=== PATIENT | female | born 1935 | race Caucasian/White ===

== ENCOUNTER → 2016-09-23 | Outpatient (CLI) | payer OTHER ==
[~2016-09-23] MED LIST: ASPI81TA28 PO; ATOR-22 PO; ATV/1 PO; B COCAP3 PO; CALC-496 PO; DORZ1SOL OPB; FISHOIL PO; LYSI500C4 PO; MELO7.5T5 PO; MULT-663 PO; PRLSR20 PO; TRAM-10 PO; VTMD1000 PO
== END | disposition home or self-care (01) ==
LOC: C.LAB1850 13:35
PROVIDERS: ATTEND Internal Medicine Pulmonary Disease
DX: J01.90 Acute sinusitis, unspecified (principal); J20.9 Acute bronchitis, unspecified

== ENCOUNTER → 2017-05-16 | Outpatient (CLI) | payer OTHER ==
[~2017-05-16] MED LIST changes: -TRAM-10 PO
--- NOTE | 2017-05-16 15:37 | MAMMOGRAPHY REPORT ---
BILATERAL DIGITAL SCREENING MAMMOGRAM WITH CAD: 05/16/2017 CLINICAL HISTORY: Routine screening. Patient has no complaints. TECHNIQUE: Current study was also evaluated with a Computer Aided Detection (CAD) system. Bilateral CC and MLO views were obtained. COMPARISON: Comparison is made to exams dated: 05/14/2016 mammogram, 05/10/2015 mammogram, 4 mammogram, 08/25/2013 mammogram, 05/06/2013 mammogram, and [facility] BREAST COMPOSITION: The tissue of both breasts is heterogeneously dense, which may obscure small mas ses. FINDINGS: No suspicious masses, calcifications, or areas of architectural distortion are noted in ei ther breast. There has been no significant interval change compared to prior exams. IMPRESSION: ACR BI-RADS CATEGORY 1: NEGATIVE There is no mammographic evidence of malignancy. A 1 year screening mammogram is recommended. The pa tient will receive written notification of the results. Approximately 10% of breast cancers are not detected with mammography. A negative mammographic report should not delay biopsy if a clinically suggestive mass is present. Leora Hdz M.D. /:05/16/2017 12:00:13 Hunter Guide: Rosanna OTERO(Naomi)(Amparo)(BD), [facility] letter sent: Normal 1/2 BI-RADS Code: ACR BI-RADS Category 1: Negative
== END | disposition home or self-care (01) ==
LOC: C.MAMM 09:24
PROVIDERS: ATTEND Internal Medicine Pulmonary Disease
DX: Z12.31 Encounter for screening mammogram for malignant neoplasm of breast (principal)

== ENCOUNTER → 2017-08-04 | Outpatient (CLI) | payer OTHER ==
[2017-08-04 14:39] LABS: BLOOD UREA NITROGEN 15 mg/dl (7-18); CALCIUM 8.8 mg/dl (8.5-10.1); CARBON DIOXIDE 26 mmol/L (21-32); CREATININE 0.97 mg/dl (0.60-1.20); GLUCOSE 99 mg/dl (70-99); POTASSIUM 3.8 mmol/L (3.5-5.1); SODIUM 137 mmol/L (136-145)
== END | disposition home or self-care (01) ==
LOC: C.LAB1850 13:23
PROVIDERS: ATTEND Physician Assistant Medical
DX: R25.2 Cramp and spasm (principal)

== ENCOUNTER → 2017-09-08 | Outpatient (CLI) | payer OTHER ==
--- NOTE | 2017-09-08 11:19 | DIAGNOSTIC IMAGING REPORT ---
L FOOT MIN 3 VIEWS ROUTINE CLINICAL HISTORY: L FOOT PAIN pain COMPARISON: None. DISCUSSION: Minimal degenerative change of the interphalangeal joints throughout the left foot. No acute bony abnormality. No evidence for fracture or dislocation. There is no evidence for soft tissue swelling. IMPRESSION: Minimal degenerative change of the interphalangeal joints. Otherwise negative study. The above report was generated using voice recognition software. It may contain grammatical, syntax or spelling errors. Electronically signed by: Bharathi Garcia M.D. 09/08/2017 11:18 AM Dictated Date/Time: 09/08/2017 11:17 AM
== END | disposition home or self-care (01) ==
LOC: C.RAD1850 10:49
PROVIDERS: ATTEND Physician Assistant Medical
DX: M79.672 Pain in left foot (principal)

== ENCOUNTER → 2017-09-08 | Outpatient (CLI) | payer OTHER ==
--- NOTE | 2017-09-08 10:10 | DIAGNOSTIC IMAGING REPORT ---
TWO VIEW CHEST CLINICAL HISTORY: Cough. FINDINGS: PA and lateral chest radiographs are compared to study dated 08/21/2015 and correlated with chest CT dated 11/20/2014. The cardiomediastinal silhouette is unremarkable. There is mild atherosclerotic calcification of the thoracic aorta. Chronic interstitial thickening is similar to previous. No airspace consolidation or pleural effusion is identified. Apical scarring is observed. There is no pneumothorax. The skeletal structures are osteopenic. The bony thorax appears intact. Degenerative change is seen throughout the thoracic spine. IMPRESSION: No active disease in the chest. Electronically signed by: Ephraim Elizondo M.D. 09/08/2017 10:08 AM Dictated Date/Time: 09/08/2017 10:07 AM
== END | disposition home or self-care (01) ==
LOC: C.RAD1850 09:53
PROVIDERS: ATTEND Physician Assistant Medical
DX: R05 Cough (principal)

== ENCOUNTER → 2018-01-19 | Outpatient (CLI) | payer OTHER ==
[2018-01-19 11:01] LABS: ALBUMIN 3.3 gm/dl (3.4-5.0); ALKALINE PHOSPHATASE 73 U/L (45-117); ALT/SGPT 38 U/L (12-78); AST/SGOT 20 U/L (15-37); BLOOD UREA NITROGEN 14 mg/dl (7-18); CALCIUM 8.6 mg/dl (8.5-10.1); CARBON DIOXIDE 25 mmol/L (21-32); CREATININE 1.07 mg/dl (0.60-1.20); GLUCOSE 104 mg/dl (70-99); POTASSIUM 3.8 mmol/L (3.5-5.1); SODIUM 138 mmol/L (136-145); TOTAL PROTEIN 7.8 gm/dl (6.4-8.2)
== END | disposition home or self-care (01) ==
LOC: C.LAB1850 09:08
PROVIDERS: ATTEND Physician Assistant Medical
DX: R79.9 Abnormal finding of blood chemistry, unspecified (principal)

== ENCOUNTER → 2018-02-13 | Outpatient (CLI) | payer OTHER | END | disposition home or self-care (01) | LOC: C.LAB1850 11:49 | PROVIDERS: ATTEND Nurse Practitioner | DX: R39.9 Unspecified symptoms and signs involving the genitourinary system (principal) ==

== ENCOUNTER 2019-09-13 05:17 | Observation (INO) ==
--- NOTE | 2019-08-23 15:55 | PAT Medication Instructions ---
Medication Instructions Date of Service August 23, 2019 Home Medications aspirin [Aspirin Low Dose] 81 mg PO QAM atorvastatin 20 mg PO HS cholecalciferol (vitamin D3) [Vitamin D3] 2,000 unit PO QAM lorazepam [Ativan] 0.5 mg PO DAILY PRN lysine 500 mg PO QAM montelukast [Singulair] 10 mg PO HS omega 9-acp-gjv-fish oil [Fish Oil] 1 cap PO QPM omeprazole 40 mg PO QAM psyllium husk [Fiber-Caps (psyllium husk)] 0.52 g PO QAM acetaminophen [Tylenol Extra Strength] 1,000 mg PO Q6H PRN calcium citrate-vitamin D3 [Citracal + D Maximum] 1 tab PO BID cetirizine 10 mg PO QPM fluticasone propionate 2 sprays INTNAS QAM latanoprost (PF) 1 drp OPHTHALMIC (EYE) PM meloxicam 7.5 mg PO BID vitamin B complex [Super B-50 Complex] 1 cap PO QAM ASK your surgeon for instructions meloxicam 7.5 mg PO BID STOP taking 2 weeks before surgery (or as soon as possible if surgery is within 2 weeks) lysine 500 mg PO QAM omega 0-ohe-nnp-fish oil [Fish Oil] 1 cap PO QPM DO NOT take the morning of surgery cholecalciferol (vitamin D3) [Vitamin D3] 2,000 unit PO QAM psyllium husk [Fiber-Caps (psyllium husk)] 0.52 g PO QAM calcium citrate-vitamin D3 [Citracal + D Maximum] 1 tab PO BID vitamin B complex [Super B-50 Complex] 1 cap PO QAM Take morning of surgery With a small sip of water, OTHERWISE NOTHING TO EAT OR DRINK AFTER MIDNIGHT: aspirin [Aspirin Low Dose] 81 mg PO QAM lorazepam [Ativan] 0.5 mg PO DAILY PRN (if needed) omeprazole 40 mg PO QAM acetaminophen [Tylenol Extra Strength] 1,000 mg PO Q6H PRN (okay to take up to 4 hours prior to surgery if needed) fluticasone propionate 2 sprays INTNAS QAM Take evening before surgery atorvastatin 20 mg PO HS lorazepam [Ativan] 0.5 mg PO DAILY PRN (if needed) montelukast [Singulair] 10 mg PO HS acetaminophen [Tylenol Extra Strength] 1,000 mg PO Q6H PRN (if needed) calcium citrate-vitamin D3 [Citracal + D Maximum] 1 tab PO BID cetirizine 10 mg PO QPM latanoprost (PF) 1 drp OPHTHALMIC (EYE) PM Other Notes If you have any questions please call us at [phone] or [phone] or [phone] or [phone]
--- NOTE | 2019-08-24 12:52 | Anesthesiology Consultation ---
Date of Service August 24, 2019 Assessment & Plan (1) Encounter for pre-operative examination: Chart Review Chart Review: Acceptable Risk for Surgery and Patient seen in Pre Admission Testing Teaching & Discussion Instructed NPO after midnight before surgery, except medications with 15 cc of water. Medication instructions provided according to the PAT guidelines. History Surgery Operation Date: 09/13/19 11:10 Proposed Procedures p Right Total Knee Arthroplasty - Yeyo Parsons, Height/Weight Height: 5 ft 6.5 in Weight: 71.2 kg Allergies Allergy/AdvReac Type Severity Reaction Status Date / Time No Known Drug Allergies Allergy Unknown . Verified 08/17/19 11:58 Medications Home Medications Medication Instructions Recorded Confirmed Last Taken aspirin [Aspirin Low Dose] 81 mg PO QA 11/28/18 08/17/19 11/28/18 atorvastatin 20 mg PO 11/28/18 08/17/19 11/27/18 cholecalciferol (vitamin D3) 2,000 unit PO QA 11/28/18 08/17/19 11/28/18 [Vitamin D3] lorazepam [Ativan] 0.5 mg PO DAILY PRN 11/28/18 08/17/19 Unknown lysine 500 mg PO QA 11/28/18 08/17/19 11/28/18 montelukast [Singulair] 10 mg PO 11/28/18 08/17/19 11/27/18 omega 0-eil-fow-fish oil [Fish Oil] 1 cap PO QPM 11/28/18 08/17/19 11/27/18 omeprazole 40 mg PO QAM 11/28/18 08/17/19 11/28/18 psyllium husk [Fiber-Caps 0.52 g PO QAM 11/28/18 08/17/19 11/28/18 (psyllium husk)] acetaminophen [Tylenol Extra 1,000 mg PO Q6H PRN 08/17/19 08/17/19 Unknown Strength] calcium citrate-vitamin D3 1 tab PO BID 08/17/19 08/17/19 Unknown [Citracal + D Maximum] cetirizine 10 mg PO QPM 08/17/19 08/17/19 Unknown fluticasone propionate 2 sprays INTNAS QA 08/17/19 08/17/19 Unknown latanoprost (PF) 1 drp OPHTHALMIC (EYE) PM 08/17/19 08/17/19 Unknown meloxicam 7.5 mg PO BID 08/17/19 08/17/19 Unknown vitamin B complex [Super B-50 1 cap PO QAM 08/17/19 08/17/19 Unknown Complex] Past Medical History Medical History Arthritis GERD (gastroesophageal reflux disease) Glaucoma High cholesterol History of blood clots DVT 2012 LEG-S/P FRACTURED FOOT (TREATED WITH CAST)-WAS ON COUMADIN X 1 YR-NO ISSUES SINCE Left bundle-branch block (Chronic) Exercise / Class Metabolic Activity II 4-5 Yardwork/Stairs/Walk up hill (Has split level home and does 7 steps without CP or SOB, feels she would be SOB with 14 steps) Past Family History Family History Unknown Parkinson disease Deafness Father Heart disease Deafness Arthritis Cardiac disorder Skin cancer Mother Parkinson disease Dementia Deafness Other Cancer Hypertension Past Surgical History Surgical History History of cataract surgery R/L History of colonoscopy History of detached retina repair LEFT EYE History of esophagogastroduodenoscopy (EGD) Hx of removal of cyst BEHIND LEFT EAR Past Anesthesia History No Hx of Anesthesia Complications and No Family Hx of Anesthesia Complications History of PONV No Hx of PONV and No Hx of Motion Sickness Social History Smoking Status: Never smoker Do You Dip or Chew Tobacco: No Hx Alcohol Use: No Hx Substance Use: No Review of Systems +congestion,/cough. Pt denies any recent chest pain, shortness of breath, palpitations, fever or UR I. Physical Exam Vital Signs BP: 126/73 P: 56bpm SPO2: 96%^ RA T: 97.8 F R: 16 ENMT Mouth: no dental restorations, no chipped teeth and no loose teeth Thyromental Distance: > or= 3.5 Finger Breadths (3.5) Neck normal visual inspection and + limited neck extension (mildly) Respiratory normal respiratory effort Auscultation: lungs clear to auscultation bilaterally Cardiovascular Rate/Rhythm: regular rhythm and + bradycardic Heart Sounds: no murmur Extremities: no edema Distant heart sounds mitral area/apex Testing Laboratory Results 08/24/19 13:00 08/24/19 13:00 PT 11.4 Seconds (9.0-12.0) 08/24/19 13:00 INR 1.1 (0.9-1.1) 08/24/19 13:00 APTT 24.8 Seconds (21.0-31.0) 08/24/19 13:00 Blood Type A Positive 08/24/19 13:00 Antibody Screen NEGATIVE 08/24/19 13:00 Electrocardiogram Date: 11/28/18 Findings: + SB @ (59bpm with 1st degree AV block) LBBB. No significant change from 08/21/15. Chest X-Ray Date: 11/28/18 Findings: + NAD Stress Test Date: 06/11/16 Type: nuclear Resting EF: 81% No reversible defect to suggest ischemic changes. Fixed defect described above, likely attenuation artifact given normal wall motion. Cannot rule out infarct. Hyperdynamic LV systolic function with EF 81%. Lexiscan induced nausea. Indeterminate EKG given left bundle branch block.
[2019-08-24 14:23] LABS: Basophils # (auto) 0.05 K/uL (0-0.2); Eosinophils # (auto) 0.12 K/uL (0-0.5); Eosinophils % (auto) 2.4 %; Hematocrit (blood only) 38.5 % (37-47); Hemoglobin 12.9 g/dL (12.0-16.0); Immature Granulocytes # (auto) 0.01 K/uL (0.00-0.02); Immature Granulocytes % (auto) 0.2 %; Lymphocytes # (auto) 1.92 K/uL (1.2-3.4); Lymphocytes % (auto) 39.2 %; Mean Corpuscular Hemoglobin 32.7 pg (25-34); Mean Corpuscular Hgb Conc 33.5 g/dL (32-36); Mean Corpuscular Volume 97.7 fL (80-100); Mean Platelet Volume 11.2 fL (7.4-10.4); Monocytes # (auto) 0.71 K/uL (0.11-0.59); Monocytes % (auto) 14.5 %; Neutrophils # (auto) 2.09 K/uL (1.4-6.5); Neutrophils % (auto) 42.7 %; Platelet Count 178 K/uL (130-400); RDW Coefficient of Variation 12.7 % (11.5-14.5); RDW Standard Deviation 45.8 fL (36.4-46.3); Red Blood Count 3.94 M/uL (4.2-5.4)
[2019-08-24 14:30] LABS: BUN Creatinine Ratio 12.3 (10-20); Calcium 9.1 mg/dl (8.5-10.1); Creatinine Clr Calc Pharmacy 41.5 ml/min; Est GFR (African American) 61.8; Est GFR (Non-African American) 53.3; Potassium 4.6 mmol/L (3.5-5.1)
[2019-08-24 14:33] LABS: INR 1.1 (0.9-1.1); Partial Thromboplastin Ratio 0.9; Partial Thromboplastin Time 24.8 Seconds (21.0-31.0); Prothrombin Time 11.4 Seconds (9.0-12.0)
--- NOTE | 2019-09-10 13:37 | History & Physical Report ---
Date of Service September 10, 2019 Assessment & Plan (1) Right knee DJD: We will proceed with a right total knee arthroplasty. Postoperatively she will be started on aspirin for DVT prophylaxis and kept overnight in the hospital for postoperative medical management. She plans to use energy physical therapy upon discharge. Yelitza is an increased risk for a right knee replacement surgery. She has a history of DVTs and is will have to be monitored postoperatively with more aggressive anticoagulation. She also has a history of heart disease. Present on Admission?: Yes History of Present Illness Chief Complaint: Primary osteoarthritis of the right knee Primary Care Provider: Carline Guzman PA-C Yelitza is a pleasant 84-year-old female who has been dealing with chronic increasing right knee pain. X-rays and clinical examination have been diagnostic for primary osteoarthritis of the right knee. After failing conservative treatment, she has elected to proceed with a right total knee arthroplasty. Allergies Allergy/AdvReac Type Severity Reaction Status Date / Time No Known Drug Allergies Allergy Unknown . Verified 08/17/19 11:58 Home Medications Home Medications Medication Instructions Recorded Confirmed Type aspirin [Aspirin Low Dose] 81 mg PO QAM 11/28/18 08/17/19 History cholecalciferol (vitamin D3) 2,000 unit PO QAM 11/28/18 08/17/19 History [Vitamin D3] lysine 500 mg PO QAM 11/28/18 08/17/19 History montelukast [Singulair] 10 mg PO HS 11/28/18 08/17/19 History omega 2-qbi-gjk-fish oil [Fish Oil] 1 cap PO QPM 11/28/18 08/17/19 History omeprazole 40 mg PO QAM 11/28/18 08/17/19 History psyllium husk [Fiber-Caps 0.52 g PO QAM 11/28/18 08/17/19 History (psyllium husk)] acetaminophen [Tylenol Extra 1,000 mg PO Q6H PRN 08/17/19 08/17/19 History Strength] calcium citrate-vitamin D3 1 tab PO BID 08/17/19 08/17/19 History [Citracal + D Maximum] cetirizine 10 mg PO QPM 08/17/19 08/17/19 History fluticasone propionate 2 sprays INTNAS QAM 08/17/19 08/17/19 History latanoprost (PF) 1 drp OPHTHALMIC (EYE) PM 08/17/19 08/17/19 History meloxicam 7.5 mg PO BID 08/17/19 08/17/19 History vitamin B complex [Super B-50 1 cap PO QAM 08/17/19 08/17/19 History Complex] atorvastatin 20 mg tablet 20 mg PO HS #30 tab 08/30/19 08/30/19 Rx azithromycin 250 mg tablet See Rx Instructions PO .COMPLEX #6 08/30/19 08/30/19 Rx tab prednisone 10 mg tablet See Rx Instructions .ROUTE 08/30/19 08/30/19 Rx .COMPLEX #15 tab lorazepam 1 mg tablet 1 mg PO DAILY PRN #30 tab 08/31/19 08/31/19 Rx Past Med/Surg History Medical History Chronic gastroesophageal reflux disease (Chronic) History of DVT (deep vein thrombosis) 2012 LEG-S/P FRACTURED FOOT (TREATED WITH CAST)-WAS ON COUMADIN X 1 YR-NO ISSUES SINCE Left bundle-branch block (Chronic) Osteoarthritis Surgical History History of cataract surgery R/L History of colonoscopy History of detached retina repair LEFT EYE History of esophagogastroduodenoscopy (EGD) Hx of removal of cyst BEHIND LEFT EAR Family History Unknown Parkinson disease Deafness Father Heart disease Deafness Arthritis Cardiac disorder Skin cancer Mother Parkinson disease Dementia Deafness Other Cancer Hypertension Social History Preferred Language: Latvian Communication Ability: Effective Nuclear Scientist Required: No Beliefs That Will Affect Care: None marital status: Current Living Situation: Spouse current occupational status: retired Feels Safe at Home: Yes Smoking Status: Never smoker Second Hand Exposure: No ; Hx Alcohol Use: No Hx Substance Use: No Review of Systems Review of Systems: All systems reviewed & are unremarkable except as noted in HPI & below Physical Exam Constitutional: WD/WN, vitals as above Eyes: PERRL, conjunctivae normal, anicteric sclerae ENMT: external ear and nose normal, oropharynx normal Neck: trachea midline, no thyromegaly Respiratory: normal respiratory effort Cardiovascular: RRR, no murmur, no edema Gastrointestinal (Abdomen): normal bowel sounds, soft, nontender, no hepatosplenomegaly Musculoskeletal: On physical examination of the right knee there is a trace effusion. There is near full range of motion and no evidence of instability. There is significant tenderness palpation along the medial and lateral joint lines and over the distal femoral condyles. Psychiatric: A+Ox3, euthymic affect Results & Data Diagnostic Findings Radiographs of the right knee demonstrate advanced osteoarthritis with joint space narrowing osteophyte formation and yetj-uq-prpc articulation. PG Care Time/CCT Total # of Minutes Spent Total Time Spent with Patient: Total time spent is greater than 50% in coordination of care (as documented) at patient's floor/unit and/or counseling patient: Coding Level of Care Code 71582 Initial Inpt Care Lvl 2 Diagnoses Right knee DJD M17.11
[~2019-09-13 05:17] MED LIST changes: -ASPI81TA28 PO; -ATOR-22 PO; -ATV/1 PO; -B COCAP3 PO; -CALC-496 PO; -DORZ1SOL OPB; -FISHOIL PO; +GENERAL ORDER PROBLEM SCH; -LYSI500C4 PO; -MELO7.5T5 PO; -MULT-663 PO; -PRLSR20 PO; -VTMD1000 PO
[2019-09-13] MEDS ORDERED: FAMOTIDINE 20 MG TAB PO SCH (06:00)
[2019-09-13] MEDS ORDERED: TRANEXAMIC ACID 1,000 MG **IV Pre-op IV SCH (06:00)
[2019-09-13] MEDS ORDERED: ACETAMINOPHEN 500 MG TAB PO SCH (06:00)
[2019-09-13] MEDS ORDERED: GABAPENTIN 300 MG CAP PO SCH (06:00)
[2019-09-13] MEDS ORDERED: CEFAZOLIN 1000MG 1,000 MG/7.5 ML SYR IV SCH (06:00)
[2019-09-13] MEDS ORDERED: ROPIVACAINE 0.5% HCL/PF 150 MG, BUPIVACAINE 0.5% MPF 30 ML, EPINEPHrine 30MG/30ML (OR U... INSTIL SCH ×2 (06:00)
[2019-09-13] MEDS ORDERED: dexAMETHasone 4 MG TAB PO SCH (06:00)
[2019-09-13] MEDS ORDERED: BUPIVACAINE LIPOSOME/PF 266 MG, BUPIVACAINE/EPINEPHRINE 50 ML, SODIUM CHLORIDE 0.9% 30 ... INFIL SCH (06:00)
[2019-09-13] MEDS ORDERED: LR 500ML BOLUS, THEN 15ML/HR IV SCH (06:00)
[2019-09-13] MEDS ORDERED: LR 60ML/HR IV SCH (06:00)
[2019-09-13] MEDS ORDERED: TRANEXAMIC ACID 1,000 MG **IV Intra-op IV SCH (06:00)
[2019-09-13] MEDS ORDERED: BUPIVACAINE 0.5 % 5 MG/1 ML PF 10ML VIAL ONE (06:14)
--- NOTE | 2019-09-13 06:34 | History & Physical Bridge Note ---
Date of Service September 13, 2019 History & Physical Bridge Note I have examined the patient, reviewed the History & Physical and in the interval since the performance of the History & Physical I have noted the following changes of clinical significance: no changes noted
[2019-09-13] MEDS ORDERED: LIDOCAINE HCL 2% 2 ML VIAL/AMP(20MG/ML) INFIL ONE (06:47)
[2019-09-13] MEDS ORDERED: PROPOFOL IV EMULSION 10 MG/ML 20 ML VIAL IV ONE (06:47)
[2019-09-13] MEDS ORDERED: fentaNYL citrate 100 MCG/2 ML VIAL ONE (06:48)
[2019-09-13] MEDS ORDERED: MIDAZOLAM HCL 1 MG/ML 2ML VIAL ONE (06:48)
[2019-09-13] MEDS ORDERED: ATROPINE SULFATE 0.1 MG/ML 10ML SYR IV PRN (06:52)
[2019-09-13] MEDS ORDERED: ePHEDrine sulfate 50 MG/ML AMP IV PRN (06:52)
[2019-09-13] MEDS ORDERED: fentaNYL citrate 100 MCG/2 ML VIAL IV PRN (06:52)
[2019-09-13] MEDS ORDERED: ONDANSETRON INJ 2 MG/ML 2 ML VIAL IV PRN ×2 (06:52→10:26)
[2019-09-13] MEDS ORDERED: ONDANSETRON INJ 2 MG/ML 2 ML VIAL ONE (07:56)
--- NOTE | 2019-09-13 08:47 | Operative Report ---
PG Post Operative Report Pre & Post Diagnosis Operation Date: 09/13/19 07:30 Pre-Op Diagnosis: Right Knee Degenerative Joint Disease Post-Op Diagnosis: Right Knee Degenerative Joint Disease I identified the patient and participated in the time-out.: Yes Procedure Operation Date: 09/13/19 07:30 Actual Procedures p Right Total Knee Arthroplasty(Right) - Yeyo Parsons DO Surgeon Yeyo Parsons DO Endless Bed Drum Sander Yeyo Mcmahon PAC Estimated Blood Loss 20 Findings Consistent with Post-Op Diagnosis Specimens Right femoral and tibial bone Complications none Disposition Disposition: Recovery Room Indications Yelitza is a pleasant 84-year-old female who is been dealing with chronic increasing right knee pain. X-rays clinical examination have been diagnostic for primary osteoarthritis of the right knee. After failing conservative treatment, she elected proceed with a right total knee arthroplasty. Description of Procedure Implants used: I used a [employer] Vanguard total knee arthroplasty system with a size 67.5 femur, 67 tibia, 31 patella, and a size 14 PS plus polyethylene bearing. All components were cemented in place with Palacos G cement. Yelitza arrived [facility] for the above procedure. She was seen in the preoperative holding area and the operative extremity was identified and signed. She was given a preoperative antibiotic, TXA, a spinal anesthetic and an adductor nerve block. She was taken back to the operating room and laid on the table in supine position. She was given basic sedation. The operative knee was then prepped and draped in sterile fashion. A timeout was done, and the patient and the operative extremity was properly identified. A midline incision was made directly over the patella. Dissection was taken down to the extensor mechanism. A subvastus arthrotomy was used. The medial retinaculum was released and the fat pad was mostly excised. The knee was flexed and the ACL, PCL, and meniscus were removed. A drill was sent down the center of the femoral canal followed by an intramedullary giorgio. Off that giorgio a distal femoral cutting block was placed. 9 mm was resected off the distal femur at 5 of valgus. A posterior referencing AP sizing guide was then placed on the distal femur. The femur measured to be a size 67.5. 2 drill holes were placed in 3 of external rotation. A 4-in-1 cutting block was then impacted into place. Anterior, posterior, and chamfer cuts were then made. The posterior stabilizing box guide was then impacted into place and the box was resected for the posterior stabilizing component. The proximal tibia was then exposed. A drill was sent down the center of the tibial canal followed by an intramedullary giorgio. Off that giorgio a proximal tibial resection guide was placed. The proximal tibia was then resected. The tibia measured to be a size 67. The tibial plate was then placed in the appropriate rotation and the tibia was punched. The posterior aspect of the knee was then opened up and any additional meniscus fragments and osteophytes were removed. Trial components were then placed. I used a size 14 PS plus polyethylene insert. The knee was brought through a full range of motion and felt to be stable. The patella was then everted and 8 mm was resected off the posterior aspect of the patella. The patella measured to be a size 31. 3 peg holes were then drilled. A trial patella was placed. The knee was once again brought through a full range of motion and felt to be stable. Trial components were then removed. The surrounding soft tissues were injected with 100 cc of an orthopedic pain control cocktail. All components were then cemented into place with Palacos G cement. The final polyethylene insert was then snapped into place and the anterior bar was locked. Once cement was dry the tourniquet was deflated. Hemostasis was obtained. A dilute betadyne lavage was then done for 3 minutes. The joint was then irrigated with normal saline solution. The subvastus arthrotomy was then closed with #1 Vicryl suture. The skin was closed with 2-0 Vicryl, 3-0V lock suture, and taylor. A soft compressive dressing was placed. She was then transferred to a hospital bed and taken to the postanesthesia care unit in stable condition. She tolerated the procedure well. Yeyo Mcmahon PA-C, was present for the entire procedure. He was critical for patient positioning, prepping, draping, retraction exposure, wound closure and application of sterile dressing. I attest to the content of the Intraoperative Record and any orders documented therein. Any exceptions are noted below.
--- NOTE | 2019-09-13 09:36 | XRay Report ---
XR knee RT 1 or 2V routine CLINICAL HISTORY: Surgical Post Op COMPARISON: None. DISCUSSION: Anatomic alignment posttotal right knee arthroplasty. Could contact between prosthetic an d underlying bone. Expected postoperative soft tissue change. IMPRESSION: Anatomic alignment posttotal right knee arthroplasty. ACT 112: Negative or not required by law. The above report was generated using voice recognition software. It may contain grammatical, syntax or spelling errors. Electronically signed by: Bharathi Garcia M.D. 09/13/2019 9:35 AM
--- NOTE | 2019-09-13 09:48 | Anesthesiology Progress Note ---
Date of Service September 13, 2019 Anesthesia Post Procedure Vital Signs Vital Signs: Temp Pulse Pulse Resp BP Pulse Ox 09/13/19 09:40 81 16 126/61 97 09/13/19 09:30 81 15 128/60 98 09/13/19 09:20 90 17 114/54 L 98 09/13/19 09:10 85 16 125/56 L 98 09/13/19 09:06 98.2 F 86 17 124/60 98 09/13/19 05:56 98.1 F 63 18 159/70 H 97 Transfer of Care Handoff Completed per policy Notes Mental Status: alert / awake / arousable and participated in evaluation Patient Amnestic to Procedure: Yes Nausea / Vomiting: adequately controlled Pain: adequately controlled Airway Patency, RR, SpO2: stable & adequate BP & HR: stable & adequate Hydration State: stable & adequate Neuraxial Anesthesia: was administered and sensory block is resolving Anesthetic Complications: no major complications apparent and Pt Satisfied with anesthetic care
[2019-09-13] MEDS ORDERED: METOCLOPRAMIDE HCL INJ 5 MG/ML 2 ML VIAL IV PRN (10:26)
[2019-09-13] MEDS ORDERED: MAGNESIUM HYDROXIDE SUSP 30 ML UDC PO PRN (10:26)
[2019-09-13] MEDS ORDERED: bisacodyL 10 MG SUPP PR PRN (10:26)
[2019-09-13] MEDS ORDERED: HYDROmorphone INJ 0.5 MG/0.5 ML SYR IV PRN (10:26)
[2019-09-13] MEDS ORDERED: LORazepam 1 MG TAB PO PRN (10:26)
[2019-09-13] MEDS ORDERED: SODIUM CHLORIDE 0.9% 1000ML 1,000 ML IV SCH (10:26)
[2019-09-13] MEDS ORDERED: NALOXONE HCL 0.4 MG/1 ML VIAL/CARP IV PRN (10:26)
[2019-09-13] MEDS: ACETAMINOPHEN 500 MG TAB PO SCH ×2 (13:39→22:30)
[2019-09-13] MEDS: CEFAZOLIN 2000MG 2,000 MG/15 ML SYR IV SCH (16:04)
[2019-09-13] MEDS: TRAMADOL HCL 50 MG TABLET PO PRN (19:06)
[2019-09-13] MEDS: ATORVASTATIN 20 MG TAB PO SCH (20:38)
[2019-09-13] MEDS: DOCUSATE SODIUM 100 MG CAP PO SCH (20:38)
[2019-09-13] MEDS: MONTELUKAST SODIUM 10 MG TABLET PO SCH (20:39)
[2019-09-13] MEDS: SENNA 8.6 MG TAB PO SCH (20:39)
[2019-09-13] MEDS: CETIRIZINE HCL 10 MG TABLET PO SCH (20:40)
[2019-09-13] MEDS ORDERED: LATANOPROST 0.005% OP SOLN 2.5 ML BTL OPL SCH (21:00)
[2019-09-14] MEDS: CEFAZOLIN 2000MG 2,000 MG/15 ML SYR IV SCH (00:53)
[2019-09-14] MEDS: ACETAMINOPHEN 500 MG TAB PO SCH ×3 (05:12→21:32)
[2019-09-14 05:49] LABS: Hematocrit (blood only) 33.4 % (37-47); Hemoglobin 11.2 g/dL (12.0-16.0); Mean Corpuscular Hemoglobin 32.6 pg (25-34); Mean Corpuscular Hgb Conc 33.5 g/dL (32-36); Mean Corpuscular Volume 97.1 fL (80-100); Mean Platelet Volume 11.2 fL (7.4-10.4); Platelet Count 147 K/uL (130-400); RDW Coefficient of Variation 12.7 % (11.5-14.5); RDW Standard Deviation 44.8 fL (36.4-46.3); Red Blood Count 3.44 M/uL (4.2-5.4); White Blood Count 16.38 K/uL (4.8-10.8)
[2019-09-14 06:20] LABS: BUN Creatinine Ratio 15.5 (10-20); Calcium 8.4 mg/dl (8.5-10.1); Creatinine Clr Calc Pharmacy 40.7 ml/min; Est GFR (African American) 60.3; Est GFR (Non-African American) 52.1
--- NOTE | 2019-09-14 06:48 | Orthopedic Progress Note ---
Date of Service September 14, 2019 Assessment & Plan (1) History of total right knee replacement: Overall she is doing very well. She is not in too much pain in the right knee. She will be seen by physical therapy today for ambulation and range of motion exercises. She is on Xarelto for DVT prophylaxis. We will keep her throughout the day today for pain control and ambulation. We plan to discharge her to home tomorrow morning. Present on Admission?: Yes Kimberly Torre was seen and examined at bedside this morning. Overall she is doing very well. She is having too much pain in the right knee. She was up and ambulating to the bathroom last night. She has no complaints. Physical Exam Musculoskeletal: On physical examination of the right knee, the dressing is clean and dry. She has active dorsiflexion and plantarflexion of her right ankle. Sensation is intact throughout. Results & Data ([facility]) Vital Signs (Past 12 Hours) Vital Signs Temp Pulse Resp BP Pulse Ox 09/14/19 03:27 36.7 C 80 18 137/72 95 09/13/19 23:18 36.9 C 72 18 143/73 H 96 09/13/19 18:57 36.7 C 82 17 130/69 96 Laboratory Results H & H 08/24/19 09/14/19 Range/Units 13:00 05:27 Hgb 12.9 11.2 L (12.0-16.0) g/dL Hct 38.5 33.4 L (37-47) % Coagulation 08/24/19 Range/Units 13:00 INR 1.1 (0.9-1.1) Diagnostic Findings Postoperative x-rays of the right knee show the prosthesis to be in anatomic alignment without any evidence of fracture, dislocation, or loosening. PG Care Time/CCT Total # of Minutes Spent Total Time Spent with Patient: Total time spent is greater than 50% in coordination of care (as documented) at patient's floor/unit and/or counseling patient: Coding Level of Care Code None Diagnoses History of total right knee replacement Z96.651
[2019-09-14] MEDS ORDERED: dexAMETHasone 4 MG TAB PO SCH (08:00)
[2019-09-14] MEDS: PANTOprazole 40 MG TAB PO SCH (08:32)
[2019-09-14] MEDS: FLUTICASONE PROPIONATE NA SPR 16 GM BTL SCH (08:32)
[2019-09-14] MEDS: MULTIVITAMIN TAB PO SCH (08:32)
[2019-09-14] MEDS: DOCUSATE SODIUM 100 MG CAP PO SCH ×2 (08:32→21:33)
[2019-09-14] MEDS: RIVAROXABAN 10 MG TABLET PO SCH (08:33)
[2019-09-14] MEDS ORDERED: NON-FORMULARY MEDICATION (Lysine 500 MG) PO SCH (09:00)
--- NOTE | 2019-09-14 09:18 | Anesthesiology Progress Note ---
Date of Service September 14, 2019 Anesthesia Post Procedure Vital Signs Vital Signs: Temp Pulse Pulse Pulse Resp BP Pulse Ox 09/14/19 07:29 36.8 C 65 16 135/68 95 09/14/19 03:27 36.7 C 80 18 137/72 95 09/13/19 23:18 36.9 C 72 18 143/73 H 96 09/13/19 18:57 36.7 C 82 17 130/69 96 09/13/19 15:28 36.8 C 87 16 122/65 94 09/13/19 13:10 36.3 C L 89 18 125/64 96 09/13/19 12:08 74 16 116/68 100 09/13/19 11:11 36.3 C L 75 16 127/69 100 09/13/19 10:38 36.5 C 81 16 126/70 97 09/13/19 10:10 36.2 C L 79 16 120/71 98 09/13/19 10:00 82 17 125/62 97 09/13/19 09:50 36.6 C 86 17 140/62 97 09/13/19 09:40 81 16 126/61 97 09/13/19 09:30 81 15 128/60 98 09/13/19 09:20 90 17 114/54 L 98 Pain Intensity Right Knee: Pain Intensity: 2 Notes Mental Status: alert / awake / arousable Patient Amnestic to Procedure: Yes Nausea / Vomiting: adequately controlled Pain: adequately controlled Airway Patency, RR, SpO2: stable & adequate BP & HR: stable & adequate Hydration State: stable & adequate Neuraxial Anesthesia: was administered and sensory block resolved Anesthetic Complications: no major complications apparent and Pt Satisfied with anesthetic care
[2019-09-14] MEDS: TRAMADOL HCL 50 MG TABLET PO PRN ×2 (09:19→17:05)
[2019-09-14] MEDS ORDERED: LATANOPROST 0.005% OP SOLN 2.5 ML BTL OPL SCH (21:00)
[2019-09-14] MEDS: SENNA 8.6 MG TAB PO SCH (21:30)
[2019-09-14] MEDS: ATORVASTATIN 20 MG TAB PO SCH (21:32)
[2019-09-14] MEDS: MONTELUKAST SODIUM 10 MG TABLET PO SCH (21:33)
[2019-09-14] MEDS: CETIRIZINE HCL 10 MG TABLET PO SCH (21:33)
[2019-09-15] MEDS: TRAMADOL HCL 50 MG TABLET PO PRN ×2 (02:02→07:33)
[2019-09-15] MEDS: ACETAMINOPHEN 500 MG TAB PO SCH ×2 (06:14→13:18)
[2019-09-15] MEDS: DOCUSATE SODIUM 100 MG CAP PO SCH (07:27)
[2019-09-15] MEDS: MULTIVITAMIN TAB PO SCH (07:28)
[2019-09-15] MEDS: PANTOprazole 40 MG TAB PO SCH (07:28)
[2019-09-15] MEDS: FLUTICASONE PROPIONATE NA SPR 16 GM BTL SCH (07:28)
--- NOTE | 2019-09-15 07:29 | Orthopedic Progress Note ---
Date of Service September 15, 2019 Assessment & Plan (1) History of total right knee replacement: Overall she is doing fairly well. She is not having much pain in the right knee. She will be seen again today by physical therapy for ambulation and range of motion exercises. She can be discharged home later today. She is on Xarelto for DVT prophylaxis. She can follow-up with orthopedics in 2 weeks. Present on Admission?: Yes Kimberly Torre was seen and examined at bedside this morning. Overall she is doing fairly well. She has minimal pain in the right knee. She has been up and ambulating with physical therapy. She has no complaints. Physical Exam Musculoskeletal: On physical examination of the right knee, the dressing has been changed and the incision is dry. Her legs out in full extension. Results & Data ([facility]) Vital Signs (Past 12 Hours) Vital Signs Temp Pulse Resp BP Pulse Ox 09/15/19 06:33 36.5 C 63 18 154/72 H 98 09/14/19 22:58 36.7 C 63 18 155/83 H 97 PG Care Time/CCT Total # of Minutes Spent Total Time Spent with Patient: Total time spent is greater than 50% in coordination of care (as documented) at patient's floor/unit and/or counseling patient: Coding Level of Care Code None Diagnoses History of total right knee replacement Z96.651
[2019-09-15] MEDS: RIVAROXABAN 10 MG TABLET PO SCH (07:30)
--- NOTE | 2019-09-15 07:30 | Discharge Summary ---
Date of Service September 15, 2019 Admission HPI Per Admitting Provider Yelitza is a pleasant 84-year-old female who has been dealing with chronic increasing right knee pain. X-rays and clinical examination have been diagnostic for primary osteoarthritis of the right knee. After failing c onservative treatment, she has elected to proceed with a right total knee arthroplasty. Principal Diagnosis Right total knee arthroplasty Discharge Data Allergies Allergy/AdvReac Type Severity Reaction Status Date / Time No Known Drug Allergies Allergy Unknown . Verified 09/13/19 05:49 Consultations 09/13/19 10:26 Consult Case Management - Discharge Planning Routine Procedures Performed Operation Date: 09/13/19 07:30 Actual Procedures p Right Total Knee Arthroplasty(Right) - Yeyo Parsons DO Ordered Studies 09/13/19 05:00 US - OR guided needle placemen Routine Hospital Course (1) History of total right knee replacement: On September 13, 2019 Yelitza arrived at [facility] and underwent a right total knee arthroplasty without complication. She had a spinal anesthetic. Postoperatively she was started on Xarelto for DVT prophylaxis and transferred to general orthopedic floors. Her hospital course was uneventful. On postop day #1 her H&H was stable and her pain was well controlled. She was able to participate well with physical therapy doing ambulation and range of motion exercises. On postop day #2 she continued to do well. She was seen once again by physical therapy. She was then discharged home. She will follow-up with orthopedics in 2 weeks. Total Time Total Time Spent Total Time Spent (In Minutes): 20 Discharge Plan Discharge Items Patient Disposition: Home - Home Health Services Reason For Visit: Right Knee Degenerative Joint Disease Discharge Diagnosis: Right total knee Activity: As commented below Non-emergency contact: Surgeon Call non-emergency contact if: your wound has increased redness and your wound has increased drainage Follow-up/Referrals: Carline Guzman PA-C [Primary Care Provider] - Diet: Regular Addtl Attending Provider Instructions: Activity and Therapy Recommendations: * If you are using [facility] then therapy will be provided at your home until they feel you have accomplished all of your goals. * If you are using [facility] then Physical Therapy will be provided until they feel you are ready to start Outpatient Physical Therapy. * If you are not using home therapy then Outpatient Physical Therapy should start about 3-5 days from your day of surgery. Therapy will last about 6-10 weeks * It is important not to put a pillow under your knee when you are relaxing or sleeping. It is just as important to make sure you are getting your knee perfectly straight as it is to regain your knee bend. * You were shown a series of exercises in the hospital. Do these exercises three times each day including the exercises you were shown in physical therapy. * Get up and walk several times each day. For the first four weeks, try not to stand or walk for more than one hour at a time. If you do stand or walk for more than one hour, you will not hurt anything, but your leg will likely swell. * As you feel comfortable, you may change from the walker or crutches to a cane and then to independent walking. Medications: * Narcotic You will likely be sent home from the hospital with a prescription for the narcotic pain medication that worked best throughout your stay. * Aspirin Most patients will be required to take Aspirin 81mg twice a day for 6 weeks after surgery. This is obtained [id number] and a prescription is not necessary. * Other medications may be prescribed for specific circumstances. If you have any questions, please call the office at . * Resume previous home medications unless otherwise instructed TEDs/Elastic Stockings: The white elastic stockings help limit swelling and prevent blood clots from forming in your legs.~ The more you wear them, the more they work. Wear them for six weeks. Dressing Care: If the incision is not draining then you may leave the taylor open to air. If there is a little bit of drainage or if the taylor are getting stuck on your clothing then cover the incision with a dry dressing. The taylor will be removed at your 2 week follow-up appointment. Showering: You may shower 5 days from the day of surgery. Let the soapy shower water run over the taylor and pat them dry. Do not scrub or soak the incision. Things To Watch For: * Drainage from the incision site that occurs more than one week after your surgery. * Increased redness at the incision site. * Fever above 102 degrees Fahrenheit. * Unusual chest pain or shortness of breath. * Call [facility] at with any of the above problems Follow-Up Visit: Follow-up with Dr. Parsons 2-3 weeks after your day of surgery. An appointment was probably scheduled when you signed-up for surgery in the office. If you have any questions call Office Instructions: More detailed instructions as well as Frequently Asked Questions were provided in a folder by our office when you signed-up for surgery. Please review these instructions when you get home. If you have any further questions or concerns, please feel free to call the office at [phone] Pending Studies at Discharge: No Stand-Alone Forms: [facility], [facility] C[facility] Medications and DC Order Prescriptions: New tramadol 50 mg Tablet 50 mg PO Q4H PRN (Reason: pain) Qty: 30 RF: 0 Xarelto 10 mg Tablet 10 mg PO DAILY Qty: 14 RF: 0 Continued atorvastatin 20 mg tablet 20 mg PO HS Qty: 30 RF: 5 lorazepam [Ativan] 1 mg tablet 1 mg PO DAILY PRN (Reason: anxiety) Qty: 30 RF: 5 lysine 1,000 mg Tablet 500 mg PO QAM RF: 0 omeprazole 40 mg capsule,delayed release(DR/EC) 40 mg PO QAM RF: 0 montelukast [Singulair] 10 mg Tablet 10 mg PO HS RF: 0 psyllium husk [Fiber-Caps (psyllium husk)] 0.52 gram Capsule 0.52 g PO QAM RF: 0 cholecalciferol (vitamin D3) [Vitamin D3] 1,000 unit Tablet 2,000 unit PO QAM RF: 0 omega [id number] oil [Fish Oil] 1,000 mg (120 mg-180 mg) Capsule 1 cap PO QPM RF: 0 vitamin B complex [Super B-50 Complex] Capsule 1 cap PO QAM RF: 0 fluticasone propionate 50 mcg/actuation spray,suspension 2 sprays INTNAS QAM RF: 0 cetirizine 10 mg capsule 10 mg PO QPM RF: 0 acetaminophen [Tylenol Extra Strength] 500 mg Tablet 1,000 mg PO Q6H PRN (Reason: Pain) RF: 0 latanoprost (PF) 0.005 % Drops 1 drp OPHTHALMIC (EYE) PM RF: 0 calcium citrate-vitamin D3 [Citracal + D Maximum] 315 mg- 250 unit Tablet 1 tab PO BID RF: 0 meloxicam 7.5 mg tablet 7.5 mg PO BID RF: 0 Discontinued aspirin [Aspirin Low Dose] 81 mg Tablet,Delayed Release (Dr/Ec) 81 mg PO QAM RF: 0 Discharge Orders: Discharge Order (Routine); Ordered 09/15/19 Ordered By: Yeyo Parsons Admission Data Admit Date/Time: 09/13/19 09:10 Attending Provider: Yeyo Parsons Admit Provider: Yeyo Parsons Primary Care Provider: Carline Guzman Coding Level of Care Code D/C Day Management <30 mins Diagnoses History of total right knee replacement Z96.651
== END 2019-09-15 13:40 | disposition home health service (06) ==
LOC: ASU 05:17 → 3E 05:17

== ENCOUNTER 2024-01-16 14:49 | Inpatient (IN) ==
--- NOTE | 2024-01-16 16:12 | Emergency Department Note ---
Impression & Plan Facial fracture, Fall, Back pain, Ambulatory dysfunction ED Provider Note NAME: MICHELLE CARTAGENA AGE: 88 SEX: F : 1935 ARRIVES VIA: Ambulance INFORMANT: Patient ED PROVIDER(S): Gilmer Tavares DO CHIEF COMPLAINT: Fall HPI: Patient is an 88-year-old female who presents to the ER following a mechanical fall. She was walking in the center care carrying 2 milkshakes and a Shoe box and tripped over the curved pavement and fell. She did hit her head. She then fell backwards onto her back. She hit her head off of a light pole. She denies any loss of consciousness. No blood thinners. She admits to right facial pain. No blurry vision or double vision. No chest pain or shortness of breath. Worst the pain is in her lower back midline. Denies any weakness or numbness in the legs. ADDITIONAL HISTORY OBTAINED: Additional history obtained from daughter who was present at bedside and notes that her tetanus is up-to-date. Chronic Medical/Social Conditions Affecting Care: Per HPI PAST MEDICAL HISTORY:See Below PAST SURGICAL HISTORY:See Below FAMILY HISTORY:See Below SOCIAL HISTORY:See Below HOME MEDICATIONS:See Below ALLERGIES:See Below VITALS:See Below PHYSICAL EXAMINATION: GENERAL: Sitting up in bed, alert, well appearing, well nourished, no distress, non-toxic EYE EXAM: normal conjunctiva. PERRL and EOM's grossly intact. HEAD: Bruising and skin tears over the right lateral face OROPHARYNX: no exudate, no erythema, lips, buccal mucosa, and tongue normal and mucous membranes are moist NECK: supple, no nuchal rigidity, no adenopathy, non-tender LUNGS: Clear to auscultation. Normal chest wall mechanics HEART: no murmurs, S1 normal and S2 normal ABDOMEN: abdomen soft, non-tender, normo-active bowel sounds, no masses, no rebound or guarding. BACK: Back is symmetrical on inspection and there is no deformity, midline tenderness in the lower lumbar region, no CVA tenderness. UPPER EXTREMITIES: Flexion-extension bilateral shoulders, elbows, wrist, and grasp intact. Abrasion over the left elbow. Small 1 cm linear laceration over the palmar surface of the left medial palmar surface LOWER EXTREMITIES: No pitting edema. NEURO EXAM: Normal sensorium, cranial nerves II-XII grossly intact, normal speech, no gross weakness of arms, no gross weakness of legs. MEDICAL DECISION MAKING: Patient is an 88-year-old female who presents ER for the above-stated complaint. IV was established blood work was obtained. Labs show no significant leukocytosis or anemia. BMP with mild hyponatremia at 132. LFTs bilirubin is unremarkable. Troponin was negative. Lipase unremarkable. CT head face and cervical spine show multiple facial fractures. This was discussed and reviewed with Dr. Jurado. CT of the lumbar spine and thoracic spine. Patient was then able to ambulate due to pain. Was given multiple doses of morphine. Updated at bedside. Discussed case with the hospitalist for further evaluation management treatment. Tetanus is up-to-date. Consults/Care Managements Discussions: Per [facility] Triage Nursing notes reviewed. Limited review of prior medical records performed Vital Signs: reviewed and remarkable for HTN Differential diagnosis: Differential diagnoses include major intracranial, cervical, spinal, thoracic, abdominal, pelvic and neurologic injury. Fracture, contusion, sprain, strain, laceration, abrasions included as well. ER treatment provided: See below Diagnostics interpreted by me include EKG and cardiac monitoring as listed below: -Cardiac Monitoring: An order was placed for continuous cardiac monitoring. The monitor shows a rate of 60 with sinus rhythm. -ECG: Sinus bradycardia rate of 50 Left axis Left bundle branch block QTc 479 -Laboratory studies:Interpreted by me as stated above in MDM and shown below. Imaging studies: Xrays: As interpreted by me: X-rays of the pelvis shows no acute fractures X-rays of the thoracic spine show no acute fractures CTs show: CT of the head, face, cervical spine and and lumbar spine as described above shows multiple facial fractures Procedures:Dermabond application: Verbal consent obtained after explanation of the risks and benefits of dermabond versus traditional suturing technique. 1 cm laceration on the hand was repaired using Dermabond. The patient/parent chose dermabond closure. The wound was irrigated copiously with saline and betadine in the standard fashion. Wound explored for foreign bodies. The wound edges were approximated and dermabond applied in the standard fashion. Excellent cosmetic appearance and hemostasis achieved. The patient tolerated the procedure well and there were no complications. Critical Care: None Past Med/Surg History Problem List (Updated 01/16/24 @ 22:08 by Gilmer Tavares DO) Ambulatory dysfunction (Acute) Back pain (Acute) Fall (Acute) Facial fracture (Acute) Concussion Fall Osteoporosis (Acute) First degree atrioventricular block (Chronic) Dyslipidemia (Chronic) Anxiety (Chronic) Allergic rhinitis (Acute) Glaucoma SNHL (sensorineural hearing loss) Sinus bradycardia (Chronic) Stress incontinence Straining during bowel movements Disc degeneration, lumbar Scoliosis of lumbar region due to degenerative disease of spine in adult Urinary Incontinence Lower abdominal pain Rectal bleeding Hyperglycemia Fatigue Chronic gastroesophageal reflux disease (Chronic) Left bundle-branch block (Chronic) Insomnia (Acute) Lichen planus (Acute) Osteoarthritis of hip (Acute) Vaginal cyst (Acute) Venous insufficiency (Chronic) Medical History Allergic drug reaction Osteoarthritis History of DVT (deep vein thrombosis) Diverticulosis Surgical History Hx of tonsillectomy H/O wisdom tooth extraction Status post total right knee replacement History of ear surgery Hx of removal of cyst History of esophagogastroduodenoscopy (EGD) (2014) History of colonoscopy (2015) History of detached retina repair History of cataract surgery Family History Unknown Parkinson disease Deafness Father Heart disease Deafness Arthritis Cardiac disorder Skin cancer Mother Parkinson disease Dementia Deafness Other Cancer Hypertension No family history of adverse response to anesthesia No family history of bleeding disorder Denies family history of Allergies Stroke Social History Smoking Status: Never smoker Second Hand Exposure: No; Do You Dip or Chew Tobacco: No; Hx Alcohol Use: No (NEVER) Hx Substance Use: No Preferred Language: Italian Communication Ability: Effective Visual Impairment: No Limitations Test Lab Technician Required: No Beliefs That Will Affect Care: None marital status: Current Living Situation: Spouse current occupational status: retired Feels Safe at Home: Yes Assistive Devices: Walker Allergies Allergies Allergy/AdvReac Type Severity Reaction Status Date / Time sulfamethoxazole Allergy Intermediate Rash Verified 01/16/24 19:44 [From Bactrim] trimethoprim [From Bactrim] Allergy Intermediate Rash Verified 01/16/24 19:44 Home Meds Home Medications Medication Instructions Recorded Confirmed lysine 1,000 mg tablet 500 mg PO QAM 11/28/18 01/16/24 acetaminophen 500 mg tablet 1,000 mg PO Q8H PRN Pain 08/17/19 01/16/24 (Tylenol Extra Strength) calcium citrate 315 mg 1 tab PO BID 08/17/19 01/16/24 calcium-vitamin D3 6.25 mcg (250 unit) tablet (Citracal + Vitamin D Maximum) cetirizine 10 mg capsule 10 mg PO QPM 08/17/19 01/16/24 timolol 0.5 % eye drops 1 drp OPL DAILY 08/23/20 01/16/24 aspirin 81 mg tablet,delayed 81 mg PO DAILY 02/05/22 01/16/24 release (Adult Low Dose Aspirin) hydrocortisone 2.5 % topical cream 1 applic NC DAILY PRN Hemorrhoids 02/05/22 01/16/24 with perineal applicator (Anusol-HC) latanoprost 0.005 % eye drops 1 drp OPL HS 12/09/22 01/16/24 vitamin B complex 1 tab PO DAILY 12/09/22 01/16/24 dexamethasone 0.5 mg/5 mL oral 0.5 mg PO QID PRN Other 09/13/23 01/16/24 elixir benzonatate 100 mg capsule 100 mg PO TID PRN Cough 01/16/24 01/16/24 famotidine 20 mg tablet 20 mg PO DAILY 01/16/24 01/16/24 fluticasone propionate 50 1 spray intranasal QAM 01/16/24 01/16/24 mcg/actuation nasal spray,suspension sodium chloride 0.65 % nasal spray 1 - 2 spray intranasal HS PRN 01/16/24 01/16/24 aerosol ([place] Saline) Nasal Congestion Previous Rx's Medication Instructions Recorded omeprazole 40 mg capsule,delayed 40 mg PO QAM #90 caps 02/03/23 release clotrimazole-betamethasone 1 1 applic topical .qhs #45 grams 06/24/23 %-0.05 % topical cream sertraline 25 mg tablet See Rx Instructions .Route 07/09/23 .COMPLEX #30 tabs meloxicam 7.5 mg tablet See Rx Instructions .Route 07/21/23 .COMPLEX #180 tabs azelastine 137 mcg (0.1 %) nasal 137 mcg (0.137 mL) intranasal BID 07/23/23 spray #30 mL atorvastatin 20 mg tablet 20 mg PO HS #90 tabs 08/27/23 promethazine 12.5 mg tablet 12.5 mg PO Q6H PRN nausea and 09/13/23 vomiting #12 tabs lorazepam 1 mg tablet 1 mg PO DAILY #30 tabs 11/26/23 mometasone-formoterol HFA 200 2 puff inhalation BID #13 grams 12/24/23 mcg-5 mcg/actuation aerosol inhaler (Dulera) Results & Data (ED) Vital Signs Vital Signs - 24 hr 01/16/24 14:55 01/16/24 15:01 01/16/24 15:03 Temperature 36.7 C Temperature Source Oral Pulse Rate 51 L 53 L Pulse Rate [Apical] 54 L Pulse Rate from SpO2 Sensor Pulse Rhythm Regular Pulse Rhythm [Apical] Pulse Strength Normal Pulse Strength [Apical] Respiratory Rate 20 23 Respiratory Effort / Characteristics Non-Labored Respiratory Depth Normal Respiratory Pattern Regular Blood Pressure 183/77 H Blood Pressure [Right Arm] 190/84 H Blood Pressure Mean 112 Blood Pressure Mean [Right Arm] 119 Blood Pressure Position Lying Blood Pressure Position [Right Arm] Pulse Oximetry 97 98 Oxygen Delivery Method Room Air Room Air Sepsis Recent Fever Within 48 Hours No Sepsis New/Unexplained Change in Mental Status N/A Sepsis Action Taken by Nursing No Action Required 01/16/24 16:55 01/16/24 17:00 01/16/24 17:11 Temperature Temperature Source Pulse Rate 49 L 49 L Pulse Rate [Apical] 47 L Pulse Rate from SpO2 Sensor 48 L Pulse Rhythm Pulse Rhythm [Apical] Regular Pulse Strength Pulse Strength [Apical] Normal Respiratory Rate 21 22 18 Respiratory Effort / Characteristics Non-Labored Respiratory Depth Normal Respiratory Pattern Regular Blood Pressure 198/88 H Blood Pressure [Right Arm] 198/88 H Blood Pressure Mean 124 Blood Pressure Mean [Right Arm] 124 Blood Pressure Position Blood Pressure Position [Right Arm] Lying Pulse Oximetry 98 99 100 Oxygen Delivery Method Room Air Room Air Room Air Sepsis Recent Fever Within 48 Hours Sepsis New/Unexplained Change in Mental Status Sepsis Action Taken by Nursing 01/16/24 19:11 01/16/24 20:00 Temperature Temperature Source Pulse Rate 54 L Pulse Rate [Apical] 66 Pulse Rate from SpO2 Sensor Pulse Rhythm Pulse Rhythm [Apical] Regular Pulse Strength Pulse Strength [Apical] Normal Respiratory Rate 17 Respiratory Effort / Characteristics Non-Labored Respiratory Depth Normal Respiratory Pattern Regular Blood Pressure Blood Pressure [Right Arm] 178/96 H Blood Pressure Mean Blood Pressure Mean [Right Arm] 123 Blood Pressure Position Blood Pressure Position [Right Arm] Lying Pulse Oximetry 99 Oxygen Delivery Method Room Air Sepsis Recent Fever Within 48 Hours Sepsis New/Unexplained Change in Mental Status Sepsis Action Taken by Nursing Laboratory Data 01/16/24 15:13 01/16/24 15:13 Lab Results 01/16/24 Range/Units 15:13 WBC 4.90 (4.8-10.8) K/ul RBC 3.78 L (4.20-5.40) M/uL Hgb 12.1 (12.0-16.0) g/dl Hct 36.2 L (37.0-47.0) % MCV 95.8 (80.0-100.0) fL MCH 32.0 (25.0-34.0) pg MCHC 33.4 (32.0-36.0) g/dL RDW Std Deviation 45.2 (36.4-46.3) fL RDW Coeff of Bertin 12.8 (11.5-14.5) % Plt Count 169 (130-400) K/uL MPV 11.0 (9.4-12.4) fL Immature Gran % (Auto) 0.4 % Neut % (Auto) 58.4 % Lymph % (Auto) 24.1 % [place] % (Auto) 14.1 % Eos % (Auto) 2.4 % Baso % (Auto) 0.6 % Neut # (Auto) 2.86 (1.40-6.50) K/uL Lymph # (Auto) 1.18 L (1.20-3.40) K/uL [place] # (Auto) 0.69 H (0.11-0.59) K/uL Eos # (Auto) 0.12 (0.00-0.50) K/uL Baso # (Auto) 0.03 (0.00-0.20) K/uL Immature Gran # (Auto) 0.02 (0.01-0.20) K/uL Sodium 132 L (136-145) mmol/L Potassium 4.3 (3.5-5.1) mmol/L Chloride 98 (98-107) mmol/L Carbon Dioxide 29 (21-32) mmol/L Anion Gap 5 (3-11) BUN 12 (6-23) mg/dl Creatinine 0.84 (0.6-1.2) mg/dl Est Cr Clr Drug Dosing 44.2 ml/min Est GFR ( Amer) 72.4 ml/min Est GFR (Non-Af Amer) 62.5 ml/min BUN/Creatinine Ratio 14.3 (10-20) Glucose 132 H (70-99(Fasting)) mg/dl Calcium 8.8 (8.6-10.3) mg/dl Magnesium 2.0 (1.7-2.4) mg/dl Total Bilirubin 0.6 (0.2-1.0) mg/dl AST 27 (13-39) U/L ALT 27 (7-52) U/L Alkaline Phosphatase 62 (34-104) U/L Troponin I High Sens 5.6 (0-14) pg/ml Total Protein 7.2 (6.0-8.3) gm/dl Albumin 3.9 (3.4-5.0) gm/dl Globulin 3.3 (2.5-4.0) gm/dl Albumin/Globulin Ratio 1.2 (0.9-2) Lipase 40 (11-82) U/L Administered Medications Hydromorphone HCl (Hydromorphone Inj 0.5 Mg/0.5 Ml Syr) 0.25 mg IV Q3H PRN PRN Reason: Moderate Pain (4,5,6) on NRS Stop: 01/30/24 19:05 Last Admin: 01/16/24 20:04 Dose: 0.25 mg Documented By: GONZALO Famotidine (Pepcid 20mg Iv Push) 20 mg in 5 mls @ 2.5 mls/min IV Q12H NEEMA Stop: 02/15/24 19:14 Last Admin: 01/16/24 19:30 Dose: 2.5 mls/min Documented By: GONZALO Ondansetron HCl (Ondansetron Inj 2 Mg/Ml 2 Ml Vial) 4 mg IV Q4H PRN PRN Reason: Nausea Stop: 02/15/24 19:10 Last Admin: 01/16/24 21:23 Dose: 4 mg Documented By: GONZALO Discontinued Medications Lidocaine (Lidocaine 5% 1 Patch) 1 patch TD NOW STA Stop: 01/16/24 21:17 Last Admin: 01/16/24 21:33 Dose: 1 patch Documented By: GONZALO Morphine Sulfate (Morphine Sulfate 2 Mg/Ml Carp) 2 mg IV NOW STA Stop: 01/16/24 16:09 Last Admin: 01/16/24 16:15 Dose: 2 mg Documented By: GONZALO Morphine Sulfate (Morphine Sulfate 4 Mg/Ml 1 Ml Carp\Vial) 4 mg IV NOW STA Stop: 01/16/24 17:22 Last Admin: 01/16/24 17:57 Dose: 4 mg Documented By: GONZALO Ondansetron HCl (Ondansetron Inj 2 Mg/Ml 2 Ml Vial) 4 mg IV NOW STA Stop: 01/16/24 16:09 Last Admin: 01/16/24 16:15 Dose: 4 mg Documented By: GONZALO Imaging Data Radiologist's Impression: Cervical Spine CT 01/16/24 16:08 CT cervical spine wo con CLINICAL HISTORY: fall TECHNIQUE: Multidetector row helical CT of the cervical spine was performed without administration of intravenous contrast. Coronal and sagittal reformations were obtained. Automated dose lowering techniques and/or adjustment according to patient size were utilized for this exam. Comparison: Comparison is made to CT cervical spine 11/13/2023 FINDINGS: No acute fractures or subluxations are identified. Degenerative changes are seen in the visualized spine. The alignment is normal. Soft tissues are unremarkable. IMPRESSION: Degenerative changes without evidence of acute bony injury. ACT 112: Negative or not required by law. Electronically signed by: Cortes Parra M.D. 01/16/2024 4:[address] 01/16/24 16:08 CT facial bones wo con CLINICAL HISTORY: fall TECHNIQUE: Multidetector row helical CT of the maxillofacial bones was performed without administration of intravenous contrast, and processed with bone and soft tissue algorithms. Coronal and sagittal reformations were obtained. Automated dose lowering techniques and/or adjustment according to patient size were utilized for this exam. Comparison: None available at the time of this dictation. FINDINGS: Nasal bones are normal. The mandible is intact. The temporomandibular joints are anatomically aligned. Pterygoid plates are intact. There is a fracture of the right zygomatic arch. There are fractures of the lateral orbital wall as well as nondisplaced fracture of the inferior orbital wall. Fracture of the lateral and anterior dietz of the maxillary sinus. The globes are normal and symmetric, without proptosis, obvious disruption or lens dislocation. There is no orbital radiopaque foreign body. The orbital dietz are intact. The retrobulbar fat is without evidence of disruption. Extraocular muscles are normal and symmetric. Optic nerve sheath complexes are normal in course and caliber. Right maxillary hyperdense layering fluid is seen compatible with hemorrhage. IMPRESSION: Findings compatible with zygomaticomaxillary complex fracture. ACT 112: Negative or not required by law. Electronically signed by: Cortes Parra M.D. 01/16/2024 5:[address] 01/16/24 16:08 CT head/brain wo con CLINICAL HISTORY: fall Technique: Contiguous axial CT images of the head were acquired from the base of the skull to the vertex without intravenous contrast administration. Images were viewed in brain, subdural and bone windows. Automated dose lowering techniques and/or adjustment according to patient size were utilized for this exam. Comparison: Comparison is made to CT head 11/13/2023 Findings: Areas of decreased attenuation are present in the periventricular and subcortical white matter bilaterally consistent with small vessel ischemic disease. Generalized cerebral atrophy with commensurate enlargement of the ventricles, sulci, and cisterns is also present. There is no acute intracranial hemorrhage or evidence of acute territorial infarction. No shift of the midline structures, mass effect, or extra-axial abnormalities are shown. Atherosclerotic calcifications are present in the intracranial segments of the internal carotid arteries. Layering fluid is in the right maxillary sinus. The orbits appear normal. There are no acute fractures of the calvaria or scalp swelling. Impression: No acute intracranial hemorrhage, no evidence of acute territorial infarction or other acute intracranial disease process. ACT 112: Negative or not required by law. Electronically signed by: Cortes Parra M.D. 01/16/2024 4:[address] 01/16/24 16:08 CT lumbar spine wo con CLINICAL HISTORY: fall TECHNIQUE: Multidetector row helical CT of the lumbar spine was performed without administration of intravenous contrast. Coronal and sagittal reformations were obtained. Automated dose lowering techniques and/or adjustment according to patient size were utilized for this exam. Comparison: Comparison is made to lumbar spine radiographs 12/04/2022 FINDINGS: For counting purposes, the last complete intervertebral disc space is considered L5-S1. No acute fractures are identified. Vertebral body heights and disk spaces are well maintained. Vertebral body alignment is within normal limits. Surrounding soft tissues are unremarkable. IMPRESSION: Degenerative changes without evidence of acute bony injury. ACT 112: Negative or not required by law. Electronically signed by: Cortes Parra M.D. 01/16/2024 5:39 PM Pelvis X-Ray 01/16/24 16:08 XR pelvis 1-2V routine CLINICAL HISTORY: fall TECHNIQUE: A single frontal view of the pelvis was obtained. Comparison: Comparison is made to CT abdomen pelvis 12/02/2023 FINDINGS: There is no evidence of an acute fracture. Degenerative changes are seen in the hip joints and lumbar spine. No soft tissue abnormality is seen. IMPRESSION: Degenerative changes without evidence of acute abnormality. ACT 112: Negative or not required by law. Electronically signed by: Cortes Parra M.D. 01/16/2024 5:08 PM Thoracic Spine X-Ray 01/16/24 16:08 XR thoracic spine 3V routine CLINICAL HISTORY: fall TECHNIQUE: 3 views of the thoracic spine were obtained. Comparison: None available at the time of this dictation. FINDINGS: No fractures or subluxations are identified. Degenerative changes are seen in the thoracic spine. Alignment appears unremarkable. Prevertebral soft tissues are within normal limits. IMPRESSION: Degenerative changes as above without acute fracture or subluxation. ACT 112: Negative or not required by law. Electronically signed by: Cortes Parra M.D. 01/16/2024 5:05 PM Discharge Plan Visit Data Chief Complaint: Fall Stated Complaint: FALL ED Provider: Gilmer Tavares Discharge Problem: Facial fracture, Fall, Back pain, Ambulatory dysfunction Forms Stand Alone Forms: [facility] Prescriptions Prescriptions: No Action omeprazole 40 mg capsule,delayed release(DR/EC) 40 mg PO QAM Qty: 90 3RF sertraline 25 mg tablet See Rx Instructions .ROUTE .COMPLEX Qty: 30 11RF Dose Instruction: Take 1 tablet by mouth once daily Rx Instructions: Take 1 tablet by mouth once daily meloxicam 7.5 mg tablet See Rx Instructions .ROUTE .COMPLEX Qty: 180 3RF Dose Instruction: Take 1 tablet by mouth twice daily Rx Instructions: Take 1 tablet by mouth twice daily azelastine 137 mcg (0.1 %) aerosol,spray 137 mcg intranasal BID Qty: 30 11RF Rx Instructions: 1-2 sprays into each nostril twice a day atorvastatin 20 mg tablet 20 mg PO HS Qty: 90 3RF lorazepam 1 mg tablet 1 mg PO DAILY Qty: 30 5RF timolol 0.5 % drops 1 drp OPL DAILY Rx Instructions: 1 drop into left eye daily hydrocortisone [Anusol-HC] 2.5 % cream with perineal applicator 1 applic NC DAILY PRN (Reason: Hemorrhoids) aspirin [Adult Low Dose Aspirin] 81 mg tablet,delayed release (DR/EC) 81 mg PO DAILY clotrimazole-betamethasone 1-0.05 % cream 1 applic topical .qhs Qty: 45 11RF Rx Instructions: Apply small/pea-sized amount topically before bed Dulera 200-5 mcg/actuation HFA aerosol inhaler 2 puff inhalation BID Qty: 13 5RF Rx Instructions: WITH A RINSE OF MOUTH AFTERWARDS. lysine 1,000 mg Tablet 500 mg PO QAM cetirizine 10 mg capsule 10 mg PO QPM acetaminophen [Tylenol Extra Strength] 500 mg Tablet 1,000 mg PO Q8H PRN (Reason: Pain) calcium citrate-vitamin D3 [Citracal + D Maximum] 315 mg- 250 unit Tablet 1 tab PO BID latanoprost 0.005 % Drops 1 drp OPL HS vitamin B complex [Super B Complex 50] Tablet 1 tab PO DAILY [place] Saline 0.65 % Aerosol,Mccr[place] 1 - 2 spray INTRANASAL HS PRN (Reason: Nasal Congestion) famotidine 20 mg tablet 20 mg PO DAILY Rx Instructions: Take 1 tablet by mouth once daily benzonatate 100 mg capsule 100 mg PO TID PRN (Reason: Cough) fluticasone propionate 50 mcg/actuation spray,suspension 1 spray INTNAS QAM Rx Instructions: administer into each nostril dexamethasone 0.5 mg/5 mL elixir 0.5 mg PO QID PRN (Reason: Other) promethazine 12.5 mg tablet 12.5 mg PO Q6H PRN (Reason: nausea and vomiting) Qty: 12 0RF Referrals Referrals: Felton Martinez MD [Physician] - Discharge Problem: Facial fracture Qualifiers: Encounter type: initial encounter Facial bone/location: unspecified facial bone Fracture type: closed Qualified Code(s): S02.92XA - Unspecified fracture of facial bones, initial encounter for closed fracture Fall Qualifiers: Encounter type: initial encounter Qualified Code(s): W19.XXXA - Unspecified fall, initial encounter
[2024-01-16] MEDS: MoRPHine SULFATE 2 MG/ML CARP IV STA (16:15)
[2024-01-16] MEDS: ONDANSETRON INJ 2 MG/ML 2 ML VIAL IV STA (16:15)
[2024-01-16 16:44] LABS: Basophils # (auto) 0.03 K/uL (0.00-0.20); Basophils % (auto) 0.6 %; Eosinophils # (auto) 0.12 K/uL (0.00-0.50); Eosinophils % (auto) 2.4 %; Hematocrit (blood only) 36.2 % (37.0-47.0); Hemoglobin 12.1 g/dl (12.0-16.0); Immature Granulocytes # (auto) 0.02 K/uL (0.01-0.20); Immature Granulocytes % (auto) 0.4 %; Lymphocytes # (auto) 1.18 K/uL (1.20-3.40); Lymphocytes % (auto) 24.1 %; Mean Corpuscular Hgb Conc 33.4 g/dL (32.0-36.0); Mean Corpuscular Volume 95.8 fL (80.0-100.0); Monocytes # (auto) 0.69 K/uL (0.11-0.59); Monocytes % (auto) 14.1 %; Neutrophils # (auto) 2.86 K/uL (1.40-6.50); Neutrophils % (auto) 58.4 %; Platelet Count 169 K/uL (130-400); RDW Coefficient of Variation 12.8 % (11.5-14.5); RDW Standard Deviation 45.2 fL (36.4-46.3); Red Blood Count 3.78 M/uL (4.20-5.40)
--- NOTE | 2024-01-16 16:48 | CT Scan Report ---
CT cervical spine wo con CLINICAL HISTORY: fall TECHNIQUE: Multidetector row helical CT of the cervical spine was performed without administration of intravenous contrast. Coronal and sagittal reformations were obtained. Automated dose lowering techn iques and/or adjustment according to patient size were utilized for this exam. Comparison: Comparison is made to CT cervical spine 11/13/2023 FINDINGS: No acute fractures or subluxations are identified. Degenerative changes are seen in the visualized sp ine. The alignment is normal. Soft tissues are unremarkable. IMPRESSION: Degenerative changes without evidence of acute bony injury. ACT 112: Negative or not required by law. Electronically signed by: Cortes Parra M.D. 01/16/2024 4:46 PM
--- NOTE | 2024-01-16 16:48 | CT Scan Report ---
CT head/brain wo con CLINICAL HISTORY: fall Technique: Contiguous axial CT images of the head were acquired from the base of the skull to the rohan lita without intravenous contrast administration. Images were viewed in brain, subdural and [facility]. Automated dose lowering techniques and/or adjustment according to patient size were utilized for this exam. Comparison: Comparison is made to CT head 11/13/2023 Findings: Areas of decreased attenuation are present in the periventricular and subcortical white matter bilate rally consistent with small vessel ischemic disease. Generalized cerebral atrophy with commensurate e nlargement of the ventricles, sulci, and cisterns is also present. There is no acute intracranial hem orrhage or evidence of acute territorial infarction. No shift of the midline structures, mass effect, or extra-axial abnormalities are shown. Atherosclerotic calcifications are present in the intracran ial segments of the internal carotid arteries. Layering fluid is in the right maxillary sinus. The orbits appear normal. There are no acute fracture s of the calvaria or scalp swelling. Impression: No acute intracranial hemorrhage, no evidence of acute territorial infarction or other acute intracra nial disease process. ACT 112: Negative or not required by law. Electronically signed by: Cortes Parra M.D. 01/16/2024 4:47 PM
[2024-01-16 16:50] LABS: Albumin Globulin Ratio 1.2 (0.9-2); Albumin Level 3.9 gm/dl (3.4-5.0); BUN Creatinine Ratio 14.3 (10-20); Bilirubin,Total 0.6 mg/dl (0.2-1.0); Calcium 8.8 mg/dl (8.6-10.3); Creatinine Clr Calc Pharmacy 44.2 ml/min; Est GFR (African American) 72.4 ml/min; Est GFR (Non-African American) 62.5 ml/min; Globulin 3.3 gm/dl (2.5-4.0); Potassium 4.3 mmol/L (3.5-5.1); Total Protein 7.2 gm/dl (6.0-8.3)
--- NOTE | 2024-01-16 17:06 | XRay Report ---
XR thoracic spine 3V routine CLINICAL HISTORY: fall TECHNIQUE: 3 views of the thoracic spine were obtained. Comparison: None available at the time of this dictation. FINDINGS: No fractures or subluxations are identified. Degenerative changes are seen in the thoracic spine. Ali gnment appears unremarkable. Prevertebral soft tissues are within normal limits. IMPRESSION: Degenerative changes as above without acute fracture or subluxation. ACT 112: Negative or not required by law. Electronically signed by: Cortes Parra M.D. 01/16/2024 5:05 PM
--- NOTE | 2024-01-16 17:09 | XRay Report ---
XR pelvis 1-2V routine CLINICAL HISTORY: fall TECHNIQUE: A single frontal view of the pelvis was obtained. Comparison: Comparison is made to CT abdomen pelvis 12/02/2023 FINDINGS: There is no evidence of an acute fracture. Degenerative changes are seen in the hip joints and lumbar spine. No soft tissue abnormality is seen. IMPRESSION: Degenerative changes without evidence of acute abnormality. ACT 112: Negative or not required by law. Electronically signed by: Cortes Parra M.D. 01/16/2024 5:08 PM
--- NOTE | 2024-01-16 17:39 | CT Scan Report ---
CT facial bones wo con CLINICAL HISTORY: fall TECHNIQUE: Multidetector row helical CT of the maxillofacial bones was performed without administrati on of intravenous contrast, and processed with bone and soft tissue algorithms. Coronal and sagittal reformations were obtained. Automated dose lowering techniques and/or adjustment according to patient size were utilized for this exam. Comparison: None available at the time of this dictation. FINDINGS: Nasal bones are normal. The mandible is intact. The temporomandibular joints are anatomically aligned . Pterygoid plates are intact. There is a fracture of the right zygomatic arch. There are fractures of the lateral orbital wall as well as nondisplaced fracture of the inferior orbital wall. Fracture o f the lateral and anterior dietz of the maxillary sinus. The globes are normal and symmetric, without proptosis, obvious disruption or lens dislocation. Ther e is no orbital radiopaque foreign body. The orbital dietz are intact. The retrobulbar fat is without evidence of disruption. Extraocular muscles are normal and symmetric. Optic nerve sheath complexes are normal in course and caliber. Right maxillary hyperdense layering fluid is seen compatible with hemorrhage. IMPRESSION: Findings compatible with zygomaticomaxillary complex fracture. ACT 112: Negative or not required by law. Electronically signed by: Cortes Parra M.D. 01/16/2024 5:37 PM
--- NOTE | 2024-01-16 17:41 | CT Scan Report ---
CT lumbar spine wo con CLINICAL HISTORY: fall TECHNIQUE: Multidetector row helical CT of the lumbar spine was performed without administration of i ntravenous contrast. Coronal and sagittal reformations were obtained. Automated dose lowering techniq ues and/or adjustment according to patient size were utilized for this exam. Comparison: Comparison is made to lumbar spine radiographs 12/04/2022 FINDINGS: For counting purposes, the last complete intervertebral disc space is considered L5-S1. No acute fractures are identified. Vertebral body heights and disk spaces are well maintained. Verteb ral body alignment is within normal limits. Surrounding soft tissues are unremarkable. IMPRESSION: Degenerative changes without evidence of acute bony injury. ACT 112: Negative or not required by law. Electronically signed by: Cortes Parra M.D. 01/16/2024 5:39 PM
[2024-01-16] MEDS: MoRPHine SULFATE 4 MG/ML 1 ML CARP\\VIAL IV STA (17:57)
--- NOTE | 2024-01-16 18:37 | History & Physical Report ---
Date of Service January 16, 2024 Assessment & Plan (1) Fall: Plan: Mechanical fall with facial fracture Was carrying multiple objects when she tripped and fell, striking a post and then falling backwards. Mechanical fall without syncope/presyncope preceding or after event. Facial fracture as noted below. This was reviewed by [facility] [place]. No acute surgical management required. Okay for outpatient follow-up Received multiple doses of morphine in the ER. Is slightly sedated, and also with difficulty ambulating due to pain and is commended for PT/OT evals and observation overnight She is not on a blood thinner No evidence of gross contamination, penetration of the buccal mucosa, or exposed cartilage or bone to indicate prophylactic antibiotics. Will follow clinically - Tface: Findings compatible with zygomaticomaxillary complex fracture CTC-spine: No acute bony injury CThead: No acute intracranial process CTlumbar spine: No acute bony injury CTT-spine: No acute fracture/subluxation X-ray pelvis: No acute findings Intermittently hypertensive with nausea/vomiting. BP improves when nausea and pain is improved. Will continue pain and nausea control, and reassess. No evidence of intracranial abnormality on CThead PT/OT pending EOM intact, no evidence of ocular muscle entrapment Patient received a tetanus booster within the last 3 months (2) Concussion: Plan: Following a fall with a head strike patient has had nausea/vomiting, difficulty focusing and feeling generally poor Symptomatic care, if any focal neurologic deficits develop repeat CT at that time. No evidence of intracranial bleed or intracranial abnormality on admitting CT (3) Sinus bradycardia: Plan: History of first-degree heart block Denies chest pain or presyncopal symptoms that led to her fall EKG: First-degree AV block. Intermittent bradycardia. She has chronotropic response when moving in bed. Denies chest pain/chest pressure. Monitored on telemetry Plan Chronic stable issues: - GERD: PPI Anxiety: Continue sertraline DVT prophylaxis: SCDs Disposition: Medical/surgical CODE STATUS: Full code Diet: Regular, soft bite sized History of Present Illness Primary Care Provider: Elodia Ocampo MD Yelitza is an 88-year-old female with a past medical history of first-degree AV block, left bundle branch block, osteoarthritis, anxiety/depression, vaginal prolapse, chronic back pain, pelvic floor dysfunction with hematochezia who has followed with GI but has chosen to defer colonoscopies who presents to the ER with a mechanical fall whiel carrying milkshakes, fell backwards and hit a post on the way down. Did fall to her face--> +facial fractures. Seen at the bedside. Yelitza reports that she was in her normal state of health and felt well until she fell. She was carrying a shoe box milkshakes and food at [facility]. She is not a [facility] resident but she was bringing food to her when she slipped and fell, striking her face on the bottom of a concrete post on her way down. She did not lose consciousness. She did not have any lightheadedness, dizziness, chest pain, chest pressure, presyncope prior to her fall. She did feel nauseous after the fall and feels like she has a little bit of difficulty focusing her vision since. She does not have pain on extraocular movements. 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 Denies abdominal pain. Does have some pain in her face and her posterior neck/back. She also feels very nauseous and has had nonbloody emesis several times since arriving in the ER. She took her morning medications today. She allergic to Bactrim otherwise denies medication allergies. No tobacco or alcohol use. DNR/DNI. Allergies Allergy/AdvReac Type Severity Reaction Status Date / Time sulfamethoxazole Allergy Intermediate Rash Verified 01/09/24 14:24 [From Bactrim] trimethoprim [From Bactrim] Allergy Intermediate Rash Verified 01/09/24 14:24 Home Medications Medication Instructions Recorded Confirmed Type lysine 1,000 mg tablet 500 mg PO QAM 11/28/18 01/09/24 History acetaminophen 500 mg tablet 1,000 mg PO Q8H PRN Pain 08/17/19 01/09/24 History (Tylenol Extra Strength) calcium citrate 315 mg 1 tab PO BID 08/17/19 01/09/24 History calcium-vitamin D3 6.25 mcg (250 unit) tablet (Citracal + Vitamin D Maximum) cetirizine 10 mg capsule 10 mg PO QPM 08/17/19 01/09/24 History timolol 0.5 % eye drops 1 drp OPL DAILY 08/23/20 01/09/24 History aspirin 81 mg tablet,delayed 81 mg PO DAILY 02/05/22 01/09/24 History release (Adult Low Dose Aspirin) hydrocortisone 2.5 % topical cream 1 applic [place] DAILY PRN Hemorrhoids 02/05/22 01/09/24 History with perineal applicator (Anusol-HC) ipratropium bromide 21 mcg (0.03 See Rx Instructions .Route 05/29/22 01/09/24 Rx %) nasal spray .COMPLEX #30 mL latanoprost 0.005 % eye drops 1 drp OPL HS 12/09/22 01/09/24 History vitamin B complex 1 tab PO DAILY 12/09/22 01/09/24 History omeprazole 40 mg capsule,delayed 40 mg PO QAM #90 caps 02/03/23 01/09/24 Rx release famotidine 20 mg tablet See Rx Instructions .Route 02/17/23 01/09/24 Rx .COMPLEX #90 tabs clotrimazole-betamethasone 1 1 applic topical .qhs #45 grams 06/24/23 01/09/24 Rx %-0.05 % topical cream sertraline 25 mg tablet See Rx Instructions .Route 07/09/23 01/09/24 Rx .COMPLEX #30 tabs meloxicam 7.5 mg tablet See Rx Instructions .Route 07/21/23 01/09/24 Rx .COMPLEX #180 tabs azelastine 137 mcg (0.1 %) nasal 137 mcg (0.137 mL) intranasal BID 07/23/23 01/09/24 Rx spray #30 mL budesonide 180 mcg/actuation 1 inh inhalation BID #1 ea 08/11/23 01/09/24 Rx breath activated powder inhaler (Pulmicort Flexhaler) atorvastatin 20 mg tablet 20 mg PO HS #90 tabs 08/27/23 01/09/24 Rx dexamethasone 0.5 mg/5 mL oral 0.5 mg PO QID PRN Other 09/13/23 01/09/24 History elixir promethazine 12.5 mg tablet 12.5 mg PO Q6H PRN nausea and 09/13/23 01/09/24 Rx vomiting #12 tabs fluticasone propionate 50 2 spray intranasal QAM #3 BTLS 11/26/23 01/09/24 Rx mcg/actuation nasal spray,suspension lorazepam 1 mg tablet 1 mg PO DAILY #30 tabs 11/26/23 01/09/24 Rx benzonatate 100 mg capsule 100 mg PO TID #30 caps 12/05/23 01/09/24 Rx amoxicillin 875 mg-potassium 1 tab PO BID 10 days #20 tabs 12/11/23 01/09/24 Rx clavulanate 125 mg tablet mometasone-formoterol HFA 200 2 puff inhalation BID #13 grams 12/24/23 01/09/24 Rx mcg-5 mcg/actuation aerosol inhaler (Dulera) Past Med/Surg History Problem List (Updated 01/16/24 @ 19:10 by Jarrett Gloria MD) Concussion Fall Osteoporosis (Acute) First degree atrioventricular block (Chronic) Dyslipidemia (Chronic) Anxiety (Chronic) Allergic rhinitis (Acute) Glaucoma SNHL (sensorineural hearing loss) Sinus bradycardia (Chronic) Stress incontinence Straining during bowel movements Disc degeneration, lumbar Scoliosis of lumbar region due to degenerative disease of spine in adult Urinary Incontinence Lower abdominal pain Rectal bleeding Hyperglycemia Fatigue Chronic gastroesophageal reflux disease (Chronic) Left bundle-branch block (Chronic) Insomnia (Acute) Lichen planus (Acute) Osteoarthritis of hip (Acute) Vaginal cyst (Acute) Venous insufficiency (Chronic) Medical History Allergic drug reaction Osteoarthritis History of DVT (deep vein thrombosis) Diverticulosis Surgical History Hx of tonsillectomy H/O wisdom tooth extraction Status post total right knee replacement History of ear surgery Hx of removal of cyst History of esophagogastroduodenoscopy (EGD) (2014) History of colonoscopy (2015) History of detached retina repair History of cataract surgery Family History Unknown Parkinson disease Deafness Father Heart disease Deafness Arthritis Cardiac disorder Skin cancer Mother Parkinson disease Dementia Deafness Other Cancer Hypertension No family history of adverse response to anesthesia No family history of bleeding disorder Denies family history of Allergies Stroke Social History Smoking Status: Never smoker Second Hand Exposure: No; Do You Dip or Chew Tobacco: No; Hx Alcohol Use: No (NEVER) Hx Substance Use: No Preferred Language: Korean Communication Ability: Effective Visual Impairment: No Limitations Carriage Dogger Required: No Beliefs That Will Affect Care: None marital status: Current Living Situation: Spouse current occupational status: retired Feels Safe at Home: Yes Assistive Devices: Walker Physical Exam Physical Exam: General: A&Ox3. NAD. Cooperative. HEENT: Right maxillary facial contusion, with superficial abrasion. Left pupil chronically dilated and minimally reactive due to past history of retinal detachment. Right pupil is reactive to light. Vision is grossly intact although patient endorses slight difficulty focusing compared to normal. Extraocular movements are intact without pain, no evidence of entrapment Pulm: CTAB A&P. -wheezes, -rales, -rhonchi. Symmetrical chest rise. No increased work of breathing. No respiratory distress. Cardiac: Bradycardic, regular, chronotropic response when sitting up in bed. Radial pulses intact and symmetrical. Abdominal: Nontender, nondistended, soft. BS present. Extremities: Warm and dry. Results & Data Results & Data Vital Signs (Past 12 Hours) Vital Signs Temp Pulse Pulse Resp BP BP Pulse Ox 01/16/24 17:11 49 L 18 100 01/16/24 17:00 49 L 22 198/88 H 99 01/16/24 15:03 53 L 01/16/24 15:01 36.7 C 51 L 23 183/77 H 98 01/16/24 14:55 54 L 20 190/84 H 97 O2 Del Method 01/16/24 17:11 Room Air 01/16/24 17:00 Room Air 01/16/24 15:03 01/16/24 15:01 Room Air 01/16/24 14:55 Room Air PG Care Time/CCT Total # of Minutes Spent Total Time Spent with Patient: Total time spent is greater than 50% in coordination of care (as documented) at patient's floor/unit and/or counseling patient: Coding Level of Care Code 30380 INT INP/OBS CARE 2/55MIN Diagnoses Fall W19.XXXA Concussion S06.0XAA Sinus bradycardia R00.1
[2024-01-16] MEDS: FAMOTIDINE 20MG IV PUSH 20 MG/5 ML SYR IV SCH (19:30)
[2024-01-16] MEDS: HYDROmorphone INJ 0.5 MG/0.5 ML SYR IV PRN (20:04)
[2024-01-16] MEDS: ONDANSETRON INJ 2 MG/ML 2 ML VIAL IV PRN (21:23)
[2024-01-16] MEDS: LIDOCAINE 5% 1 PATCH TD STA (21:33)
[2024-01-16 21:50] LABS: Troponin I High Sensitivity 5.6 pg/ml (0-14)
[2024-01-17] MEDS: LATANOPROST 0.005% OP SOLN 2.5 ML BTL OPL SCH (00:01)
[2024-01-17] MEDS: HYDROmorphone INJ 1 MG/ML SYRINGE IV PRN (00:04)
[2024-01-17 06:56] LABS: Basophils # (auto) 0.03 K/uL (0.00-0.20); Basophils % (auto) 0.3 %; Hematocrit (blood only) 34.1 % (37.0-47.0); Hemoglobin 11.8 g/dl (12.0-16.0); Immature Granulocytes # (auto) 0.03 K/uL (0.01-0.20); Immature Granulocytes % (auto) 0.3 %; Lymphocytes # (auto) 1.26 K/uL (1.20-3.40); Lymphocytes % (auto) 12.8 %; Mean Corpuscular Hemoglobin 32.6 pg (25.0-34.0); Mean Corpuscular Hgb Conc 34.6 g/dL (32.0-36.0); Mean Corpuscular Volume 94.2 fL (80.0-100.0); Mean Platelet Volume 10.6 fL (9.4-12.4); Monocytes # (auto) 0.96 K/uL (0.11-0.59); Monocytes % (auto) 9.8 %; Neutrophils # (auto) 7.54 K/uL (1.40-6.50); Neutrophils % (auto) 76.8 %; Platelet Count 165 K/uL (130-400); RDW Coefficient of Variation 12.6 % (11.5-14.5); RDW Standard Deviation 43.3 fL (36.4-46.3); Red Blood Count 3.62 M/uL (4.20-5.40); White Blood Count 9.82 K/ul (4.8-10.8)
[2024-01-17 07:23] LABS: BUN Creatinine Ratio 15.1 (10-20); Calcium 8.8 mg/dl (8.6-10.3); Creatinine Clr Calc Pharmacy 50.8 ml/min; Est GFR (African American) 85.8 ml/min; Est GFR (Non-African American) 74.1 ml/min; Potassium 4.2 mmol/L (3.5-5.1)
[2024-01-17] MEDS: PANTOprazole 40 MG TAB PO SCH (08:38)
[2024-01-17] MEDS: FLUTICASONE/VILANTEROL 200/25MCG 14 PUFFS/INHALER INH SCH (08:39)
[2024-01-17] MEDS: SERTRALINE HCL 50 MG TABLET PO SCH (08:39)
[2024-01-17] MEDS: TIMOLOL MALEATE 0.5% OP SOLN 5 ML BTL OPL SCH (08:39)
[2024-01-17] MEDS: ACETAMINOPHEN 325 MG TAB PO PRN (08:42)
[2024-01-17] MEDS ORDERED: FLUTICASONE FUROATE 100MCG 14 PUFFS/INHALER INH SCH (09:00)
[2024-01-17] MEDS ORDERED: IPRATROPIUM BROMIDE NASAL SPRAY 0.06% 15ML NAE PRN (09:00)
--- NOTE | 2024-01-17 18:45 | Hospitalist Progress Note ---
Date of Service January 17, 2024 Assessment & Plan (1) Fall: Plan: Mechanical fall with facial fractures Imaging to date - facial CT - right-sided zygomaticomaxillary complex fracture CTC-spine: No acute bony injury CThead: No acute intracranial process CTlumbar spine: No acute fracture CTT-spine: No acute fracture/subluxation X-ray pelvis: No acute findings/no fracture Patient received a tetanus booster within the last 3 months by report Of note - had another fall with resulting head injury in 10/2023 per her record Check B12, 25-OH vit D levels in am Check orthostatic BPs to ensure orthostasis is not contributing to fall risk Check echo given her conduction disease (Sinus naeem, LBBB, 1st degree AV block) PT/OT evals completed; appreciate their assistance -- rehab advised (2) Concussion: Plan: suspect she suffered a concussion from her fall with head injury supportive care repeating her head CT due to her mental status today (3) Sinus bradycardia: Plan: due to her sinus bradycardia, LBBB, first degree AV block - obtain echo consider prolonged monitoring as outpatient to rule out higher block, pauses, etc contributing to fall risk TSH noted to be wnl - 07/2023 (4) Facial fracture: Plan: Right zygomatic arch fracture. Lateral orbital wall as well as nondisplaced fracture of the inferior orbital wall. Fracture of the lateral and anterior dietz of the maxillary sinus with intra- sinus hemorrhage. Admitting MD was in touch with Dr Zachery Jurado oral surgery - nothing operative at this time. f/u with Dr Jurado as outpatient. Pain control - * schedule tylenol 500mg TID * add norco 5's prn * d/c dilaudid 0.5's * change dilaudid to 0.25mg q6h prn to avoid excess sedation from IV narcotics Check 25-OH vit D level am (5) Left bundle-branch block: Plan: chronic, long standing dating back several years repeat echo in am (6) Low back pain: Plan: no fractures seen on l-spine CT at time of ER presentation with ongoing pain will check CT pelvis - r/o pelvic fractures pain control as above (7) Acute metabolic encephalopathy: Plan: head injury with concussion will play a massive role can't exclude toxic effects from pain meds check vitamin B12 level in am rechecking head CT (8) Hyponatremia: Plan: looks volume depleted NS x 500cc repeat BMP am check urine Na and urine Osm Plan GERD: PPI Anxiety: Continue sertraline DVT prophylaxis: SCDs; add chemical means next 1-2 days due to prior h/o DVT in early change observation status to full admit status Admission and Anticipated Discharge Date Admission Date: January 16, 2024 Subjective tele overnight - sinus bradycardia; 40s, 50s LBBB at baseline per staff has been "lethargic" much of the day sleepy poor appetite during my visit patient had multiple visitors including 2 children at bedside her children reported that their mother had been overall doing well at home and living independently pt reports mild facial pain, but 2 largest complaints are that of nausea ongoing all day and low back pain on the right side she does state "I've been having problems with my memory lately" apparently when she tried to stand up and work with PT earlier today she felt ve ry unwell, had more nausea, got more bradycardic, etc Review of Systems Review of Systems: gen - no fevers cv - no chest pain pulm - no dyspnea GI - no abd pain but generalized "upset" Physical Exam Physical Exam: gen - lying in bed, awake, alert head - extensive facial bruising and right orbital bruising with swelling; right nasolabial fold is swollen causing a pseudofacial droop in this area mouth - MM slightly dry eyes - left pupil is larger than right pupil but other are reactive neck - supple, no JVD heart - naeem, s1 s2, 1/6 systolic murmur lungs - CTA b/l back - nontender to palpation t-spine; l-spine - mild discomfort with palpation of lumbar spine & paraspinal region on right extending down to the right flank and right iliac crest region abd - soft NT ND BS+ ext - no edema, pulses 2+ b/l neuro - strength 5/5 x 4 exts; speech clear Results & Data Results & Data Vital Signs (Past 12 Hours) Vital Signs Temp Pulse Pulse Resp BP Pulse Ox O2 Del Method 01/17/24 15:51 58 L 01/17/24 15:06 36.7 C 90 18 149/71 H 99 Room Air 01/17/24 11:00 36.7 C 86 16 151/63 H 98 Room Air 01/17/24 08:39 58 L 01/17/24 08:00 36.8 C 98 H 16 160/69 H 97 Room Air Laboratory Results Laboratory Results - last 24 hr 01/16/24 01/17/24 15:13 06:33 WBC 9.82 RBC 3.62 L Hgb 11.8 L Hct 34.1 L MCV 94.2 MCH 32.6 MCHC 34.6 RDW Std Deviation 43.3 RDW Coeff of Bertin 12.6 Plt Count 165 MPV 10.6 Immature Gran % (Auto) 0.3 Neut % (Auto) 76.8 Lymph % (Auto) 12.8 [place] % (Auto) 9.8 Eos % (Auto) 0.0 Baso % (Auto) 0.3 Neut # (Auto) 7.54 H Lymph # (Auto) 1.26 [place] # (Auto) 0.96 H Eos # (Auto) 0.00 Baso # (Auto) 0.03 Immature Gran # (Auto) 0.03 Sodium 131 L Potassium 4.2 Chloride 97 L Carbon Dioxide 28 Anion Gap 6 BUN 11 Creatinine 0.73 Est Cr Clr Drug Dosing 50.8 Est GFR ( Amer) 85.8 Est GFR (Non-Af Amer) 74.1 BUN/Creatinine Ratio 15.1 Glucose 140 H Calcium 8.8 Magnesium 2.0 Troponin I High Sens 5.6 PG Care Time/CCT Total # of Minutes Spent Total Time Spent with Patient: Total time spent is greater than 50% in coordination of care (as documented) at patient's floor/unit and/or counseling patient: Coding Level of Care Code 95014 SUB INP/OBS CARE 3/50MIN Diagnoses Fall W19.XXXA Concussion S06.0XAA Sinus bradycardia R00.1 Facial fracture S02.92XA Encounter type: initial encounter Facial bone/location: unspecified facial bone Fracture type: closed Left bundle-branch block I44.7 Low back pain M54.50 Acute metabolic encephalopathy G93.41 Hyponatremia E87.1 (4) Facial fracture Encounter type: initial encounter Facial bone/location: unspecified facial bone Fracture type: closed Qualified Code(s): S02.92XA - Unspecified fracture of facial bones, initial encounter for closed fracture
[2024-01-17] MEDS: SODIUM CHLORIDE 0.9% 500 ML IV SCH (19:20)
[2024-01-17] MEDS: ACETAMINOPHEN 500 MG TAB PO SCH (20:03)
[2024-01-18] MEDS: OPTIRAY 320 100ml IV ONE (01:39)
--- NOTE | 2024-01-18 02:18 | CT Scan Report ---
Exam(s): CT ABDOMEN + PELVIS With Contrast IV Amt: 94 cc's optiray 320 EXAM: CT Abdomen and Pelvis With Intravenous Contrast CLINICAL HISTORY: Reason for exam: fall, nausea, R pelvic pain/back pain. TECHNIQUE: Axial computed tomography images of the abdomen and pelvis with intravenous contrast. CTDI is 35.79 mGy and DLP is 1468.6 mGy-cm. Automated exposure control was utilized for the study. A dose lowering technique was utilized adhering to the principles of ALARA. CONTRAST: Patient received 94 cc's optiray 320 of IV contrast COMPARISON: No relevant prior studies available. FINDINGS: Lung bases: Unremarkable. No mass. No consolidation. Pleural space: Trace bilateral pleural effusions. ABDOMEN: Liver: Unremarkable. No mass. Gallbladder and bile ducts: Unremarkable. No calcified stones. No ductal dilation. Pancreas: Unremarkable. No mass. No ductal dilation. Spleen: Unremarkable. No splenomegaly. Adrenals: Unremarkable. No mass. Kidneys and ureters: Unremarkable. No solid mass. No hydronephrosis. Stomach and bowel: Diverticulosis, without acute diverticulitis. No small bowel obstruction. No free intraperitoneal air. PELVIS: Appendix: No findings to suggest acute appendicitis. Bladder: Unremarkable. No mass. Reproductive: Atrophy of the uterus. ABDOMEN and PELVIS: Intraperitoneal space: Unremarkable. No free air. No significant fluid collection. Bones/joints: Degenerative changes of the spine. No acute fracture. No dislocation. Soft tissues: Unremarkable. Vasculature: Atherosclerotic changes of the aorta. No abdominal aortic aneurysm. Lymph nodes: Unremarkable. No enlarged lymph nodes. IMPRESSION: 1. Trace bilateral pleural effusions. 2. Diverticulosis, without acute diverticulitis. No small bowel obstruction. No free intraperitoneal air. Electronically signed by: Alfredo Page MD 01/18/24 02:17 AM
--- NOTE | 2024-01-18 03:14 | CT Scan Report ---
Exam(s): CT HEAD Without Contrast EXAM: CT Head Without Intravenous Contrast CLINICAL HISTORY: Reason for exam: s/p fall/head injury with lethargy; eval ICH. TECHNIQUE: Axial computed tomography images of the head/brain without intravenous contrast. CTDI is 35.79 mGy and DLP is 1468.6 mGy-cm. Automated exposure control was utilized for the study. A dose lowering technique was utilized adhering to the principles of ALARA. COMPARISON: Comparison made to prior head CT from January 16, 2024. FINDINGS: Brain: Unremarkable. No hemorrhage. Mild nonspecific white matter changes.. No edema. Ventricles: Mild ventriculomegaly. Bones/joints: Unremarkable. No acute fracture. Soft tissues: Unremarkable. Sinuses: Unremarkable as visualized. No acute sinusitis. Mastoid air cells: Unremarkable as visualized. No mastoid effusion. IMPRESSION: No evidence of acute intracranial pathology. Electronically signed by: Nicolette Mccullough MD 01/18/24 03:13 AM
[2024-01-18 07:48] LABS: Creatinine Clr Calc Pharmacy 53.8 ml/min; Est GFR (African American) 90.7 ml/min; Est GFR (Non-African American) 78.3 ml/min; Potassium 3.7 mmol/L (3.5-5.1)
--- NOTE | 2024-01-18 11:12 | XCELERA ---
[id number]
--- NOTE | 2024-01-18 11:27 | XRay Report ---
KUB HISTORY: vomiting; ileus? constipation? COMPARISON: Abdomen and pelvis CT 01/18/2024. FINDINGS: The bowel gas pattern is unremarkable. There are no dilated loops of small bowel to suggest an obstruction. No renal calculi. No ureteral calculi. No pneumoperitoneum or pneumatosis. Mild-to- moderate fecal retention. Levoscoliosis and degenerative changes within the lumbar spine. Residual co ntrast within the urinary system from the recent CT examination. Although not clearly identified on t his study. There are nondisplaced fractures through the posterior cortex/bilateral pedicles of the L1 vertebral body seen on the recent CT examination. This also nondisplaced fracture through the tip of the L2 spinous process. This likely accounts for the paravertebral edema at these levels. There is a lso trace retroperitoneal hemorrhage along the psoas muscles and posterior to the kidneys. Of note, t here appear to be 6 lumbar type vertebral bodies. IMPRESSION: 1. Nodular to bowel gas pattern. 2. Mild to moderate fecal retention. 3. Although not clearly identified on this study. There are nondisplaced fractures through the cinder block maker ior cortex/bilateral pedicles of the L1 vertebral body seen on the recent CT examination. This is con sistent with an unstable fracture. This also nondisplaced fracture through the tip of the L2 spinous process. This likely accounts for the paravertebral edema at these levels. There is also trace retrop eritoneal hemorrhage along the psoas muscles and posterior to the kidneys. Orthopedic consultation re commended. Of note, there appear to be 6 lumbar type vertebral bodies. ACT 112: Negative or not required by law. Electronically signed by: Harvey Shi M.D. 01/18/2024 11:25 AM
[2024-01-18] MEDS: SENNA 8.6 MG TAB PO SCH (11:49)
[2024-01-18] MEDS: POLYETHYLENE (MIRALAX) 17 GM PACK PO SCH (11:49)
[2024-01-18 13:38] LABS: Appearance Urine Clear (Clear); Bacteria Urine Automated None Seen (None Seen); Bilirubin Urine Negative (Negative); Blood Urine Trace (Negative); Cast Urine Automated 0-2 /lpf (0-2); Color Urine Yellow; Epithelial Cell Urine Auto 0-2 /hpf (0-2); Glucose Urine UA Trace (Negative); Ketones Urine Negative (Negative); Leukocyte Esterase Urine Negative (Negative); Nitrite Urine Negative (Negative); Protein Urine Trace (Negative); Specific Gravity Urine 1.018 (1.000-1.030); Urobilinogen Urine Negative (Negative); WBC Urine Automated 0-5 /hpf (0-5); pH Urine 6.5 (4.5-7.5)
--- NOTE | 2024-01-18 14:18 | Hospitalist Progress Note ---
Date of Service January 18, 2024 Assessment & Plan (1) Fracture of lumbar spine: Plan: 2nd to fall. * Nondisplaced fractures -- posterior cortex/bilateral pedicles of the L1 vertebral body. * Nondisplaced fracture through the tip of the L2 spinous process. * Paravertebral edema at these levels. * Trace retroperitoneal hemorrhage along the psoas muscles and posterior to the kidneys. Fortunately her LE motor exam remains intact. No paresthesias or other neuro symptoms of legs. I placed Mrs Hicks on bedrest. I spoke directly to ortho-spine, Dr Joy, who will see the patient in consult. 25-OH vit D level wnl. Pain control - scheduled tylenol, norco prn, dilaudid prn. Recheck CBC in am due to retroperitoneal hemorrhage. SCDs for now; no chemical DVT proph. (2) Fall: Plan: Mechanical fall with facial fractures Imaging to date - facial CT - right-sided zygomaticomaxillary complex fracture CTC-spine: No acute bony injury CThead x 2: No acute intracranial process CTT-spine: No acute fracture/subluxation X-ray pelvis: No acute findings/no fracture Patient received a tetanus booster within the last 3 months by report Of note - had another fall with resulting head injury in 10/[address] yesterday with lumbar spine fractures at L1/L2 - see #1 above. B12, 25-OH vit D levels wnl. Patient IS orthostatic which may be contributing to fall risk. Checked echo given her conduction disease (Sinus naeem, LBBB, 1st degree AV block) - LV function intact. PT/OT evals completed; appreciate their assistance -- rehab advised. Will figure out dispo once #1 is addressed. (3) Concussion: Plan: suspect she suffered a concussion from her fall with head injury supportive care (4) Sinus bradycardia: Plan: due to her sinus bradycardia, LBBB, first degree AV block - obtained echo -- intact LV function consider prolonged monitoring as outpatient to rule out higher block, pauses, etc contributing to fall risk TSH noted to be wnl - 07/2023 (5) Facial fracture: Plan: Right zygomatic arch fracture. Lateral orbital wall as well as nondisplaced fracture of the inferior orbital wall. Fracture of the lateral and anterior dietz of the maxillary sinus with intra- sinus hemorrhage. Admitting MD was in touch with Dr Zachery Jurado oral surgery - nothing operative at this time. I spoke directly with Dr Jurado today who will see Mrs Hicks in formal consultation tomorrow; he suspects nothing surgical is needed. Pain control - * schedule tylenol 500mg TID * norco 5's prn * dilaudid 0.25mg q6h prn 25-OH vit D level = 39. (6) Left bundle-branch block: Plan: chronic, long standing dating back several years echo with preserved EF no ischemic symptoms (7) Low back pain: Plan: see #1 above 2nd L1/L2 fractures (8) Acute metabolic encephalopathy: Plan: head injury with concussion will play a massive role can't exclude toxic effects from pain meds head CT x 2 without ICH or stroke B12 wnl TSH wnl (07/2023) (9) Hyponatremia: Plan: looked volume contracted at admission Na level climbed to 133 with gentle IV fluids repeat BMP am for stability at risk of SIADH due to head injury and fractures Plan GERD: PPI Anxiety: Continue sertraline DVT prophylaxis: SCDs only at this time left message for pt's daughter on her voicemail this evening checked u/a and urine cx today to ensure no UTI - u/a unremarkable Admission and Anticipated Discharge Date Admission Date: January 17, 2024 Subjective patient lying in bed during the visit c/o pain in the lumbar spine region no pain in her legs no paresthesias or motor weakness of the legs c/o mild right facial pain still with nausea and stomach upset poor appetite liquid intake is fair at best Review of Systems Review of Systems: cv - no cp, no orthopnea; just mild soreness over the left chest but she states it is chronic? pulm - no dyspnea GI - had emesis this am; no stool since admission - no dysuria Physical Exam Physical Exam: gen - lying in bed, awake, alert, relatively comfortable head - extensive facial bruising and right orbital bruising with swelling; right nasolabial fold is swollen causing a pseudofacial droop in this area -- slightly better today mouth - MMM eyes - left pupil is larger than right pupil (chronic) neck - supple, no JVD heart - naeem, s1 s2, 1/6 systolic murmur lungs - CTA b/l back - nontender to palpation t-spine; l-spine - mild-moderate discomfort with palpation of upper segments of lumbar spine abd - soft NT ND BS+ ext - no edema, pulses 2+ b/l neuro - strength 5/5 x both legs (prox & distal strength) Results & Data Results & Data Vital Signs (Past 12 Hours) Vital Signs Temp Pulse Resp BP Pulse Ox O2 Del Method 01/18/24 11:00 36.6 C 65 18 159/79 H 97 Room Air 01/18/24 07:39 36.4 C L 58 L 16 164/69 H 96 Room Air 01/18/24 03:37 36.3 C L 50 L 18 147/72 H 96 Room Air Laboratory Results Laboratory Results - last 24 hr 01/17/24 01/18/24 01/18/24 18:48 06:41 13:10 Sodium 133 L Potassium 3.7 Chloride 100 Carbon Dioxide 27 Anion Gap 6 BUN 9 Creatinine 0.69 Est Cr Clr Drug Dosing 53.8 Est GFR ( Amer) 90.7 Est GFR (Non-Af Amer) 78.3 BUN/Creatinine Ratio 13.0 Glucose 114 H Calcium 9.0 Vitamin B12 715 25-OH Vitamin D Total 39.3 Urine Color Yellow Urine Appearance Clear Urine pH 6.5 Ur Specific [place] 1.018 Urine Protein Trace H Urine Glucose (UA) Trace H Urine Ketones Negative Urine Blood Trace H Urine Nitrite Negative Urine Bilirubin Negative Urine Urobilinogen Negative Ur Leukocyte Esterase Negative Urine WBC (Auto) 0-5 Urine RBC (Auto) 3-5 H U Hyaline Cast (Auto) 0-2 U Epithel Cells (Auto) 0-2 Urine Bacteria (Auto) None Seen Urine Osmolality 453 L Ur Random Sodium 62 Diagnostic Findings Abdomen/Pelvis CT 01/17/24 18:40 Exam(s): CT ABDOMEN + PELVIS With Contrast IV Amt: 94 cc's optiray 320 EXAM: CT Abdomen and Pelvis With Intravenous Contrast CLINICAL HISTORY: Reason for exam: fall, nausea, R pelvic pain/back pain. TECHNIQUE: Axial computed tomography images of the abdomen and pelvis with intravenous contrast. CTDI is 35.79 mGy and DLP is 1468.6 mGy-cm. Automated exposure control was utilized for the study. A dose lowering technique was utilized adhering to the principles of ALARA. CONTRAST: Patient received 94 cc's optiray 320 of IV contrast COMPARISON: No relevant prior studies available. FINDINGS: Lung bases: Unremarkable. No mass. No consolidation. Pleural space: Trace bilateral pleural effusions. ABDOMEN: Liver: Unremarkable. No mass. Gallbladder and bile ducts: Unremarkable. No calcified stones. No ductal dilation. Pancreas: Unremarkable. No mass. No ductal dilation. Spleen: Unremarkable. No splenomegaly. Adrenals: Unremarkable. No mass. Kidneys and ureters: Unremarkable. No solid mass. No hydronephrosis. Stomach and bowel: Diverticulosis, without acute diverticulitis. No small bowel obstruction. No free intraperitoneal air. PELVIS: Appendix: No findings to suggest acute appendicitis. Bladder: Unremarkable. No mass. Reproductive: Atrophy of the uterus. ABDOMEN and PELVIS: Intraperitoneal space: Unremarkable. No free air. No significant fluid collection. Bones/joints: Degenerative changes of the spine. No acute fracture. No dislocation. Soft tissues: Unremarkable. Vasculature: Atherosclerotic changes of the aorta. No abdominal aortic aneurysm. Lymph nodes: Unremarkable. No enlarged lymph nodes. IMPRESSION: 1. Trace bilateral pleural effusions. 2. Diverticulosis, without acute diverticulitis. No small bowel obstruction. No free intraperitoneal air. Electronically signed by: Alfredo Page MD 01/18/24 02:[address] 01/17/24 18:40 Exam(s): CT HEAD Without Contrast EXAM: CT Head Without Intravenous Contrast CLINICAL HISTORY: Reason for exam: s/p fall/head injury with lethargy; eval ICH. TECHNIQUE: Axial computed tomography images of the head/brain without intravenous contrast. CTDI is 35.79 mGy and DLP is 1468.6 mGy-cm. Automated exposure control was utilized for the study. A dose lowering technique was utilized adhering to the principles of ALARA. COMPARISON: Comparison made to prior head CT from January 16, 2024. FINDINGS: Brain: Unremarkable. No hemorrhage. Mild nonspecific white matter changes.. No edema. Ventricles: Mild ventriculomegaly. Bones/joints: Unremarkable. No acute fracture. Soft tissues: Unremarkable. Sinuses: Unremarkable as visualized. No acute sinusitis. Mastoid air cells: Unremarkable as visualized. No mastoid effusion. IMPRESSION: No evidence of acute intracranial pathology. Electronically signed by: Nicolette Mccullough MD 01/18/24 03:13 AM KUB X-Ray 01/18/24 10:34 KUB HISTORY: vomiting; ileus? constipation? COMPARISON: Abdomen and pelvis CT 01/18/2024. FINDINGS: The bowel gas pattern is unremarkable. There are no dilated loops of small bowel to suggest an obstruction. No renal calculi. No ureteral calculi. No pneumoperitoneum or pneumatosis. [id number] fecal retention. Levoscoliosis and degenerative changes within the lumbar spine. Residual contrast within the urinary system from the recent CT examination. Although not clearly identified on this study. There are nondisplaced fractures through the posterior cortex/bilateral pedicles of the L1 vertebral body seen on the recent CT examination. This also nondisplaced fracture through the tip of the L2 spinous process. This likely accounts for the paravertebral edema at these levels. There is also trace retroperitoneal hemorrhage along the psoas muscles and posterior to the kidneys. Of note, there appear to be 6 lumbar type vertebral bodies. IMPRESSION: 1. Nodular to bowel gas pattern. 2. Mild to moderate fecal retention. 3. Although not clearly identified on this study. There are nondisplaced fractures through the posterior cortex/bilateral pedicles of the L1 vertebral body seen on the recent CT examination. This is consistent with an unstable fracture. This also nondisplaced fracture through the tip of the L2 spinous process. This likely accounts for the paravertebral edema at these levels. There is also trace retroperitoneal hemorrhage along the psoas muscles and posterior to the kidneys. Orthopedic consultation recommended. Of note, there appear to be 6 lumbar type vertebral bodies. ACT 112: Negative or not required by law. Electronically signed by: Harvey Shi M.D. 01/18/2024 11:25 AM PG Care Time/CCT Total # of Minutes Spent Total Time Spent with Patient: Total time spent is greater than 50% in coordination of care (as documented) at patient's floor/unit and/or counseling patient: Coding Level of Care Code 07671 SUB INP/OBS CARE 3/50MIN Diagnoses Fracture of lumbar spine S32.009A Fall W19.XXXA Concussion S06.0XAA Sinus bradycardia R00.1 Facial fracture S02.92XA Encounter type: initial encounter Facial bone/location: unspecified facial bone Fracture type: closed Left bundle-branch block I44.7 Low back pain M54.50 Acute metabolic encephalopathy G93.41 Hyponatremia E87.1 (5) Facial fracture Encounter type: initial encounter Facial bone/location: unspecified facial bone Fracture type: closed Qualified Code(s): S02.92XA - Unspecified fracture of facial bones, initial encounter for closed fracture
[2024-01-18] MEDS: MUPIROCIN 2% OINT 22 GM TUBE EXT SCH (17:47)
[2024-01-18] MEDS: HYDROCODONE/ACETAMOPHEN 5/325MG TAB PO PRN (21:03)
[2024-01-19 06:22] LABS: Basophils # (auto) 0.04 K/uL (0.00-0.20); Basophils % (auto) 0.6 %; Eosinophils # (auto) 0.04 K/uL (0.00-0.50); Eosinophils % (auto) 0.6 %; Hemoglobin 11.5 g/dl (12.0-16.0); Immature Granulocytes # (auto) 0.03 K/uL (0.01-0.20); Immature Granulocytes % (auto) 0.5 %; Lymphocytes # (auto) 1.38 K/uL (1.20-3.40); Lymphocytes % (auto) 21.7 %; Mean Corpuscular Hemoglobin 32.9 pg (25.0-34.0); Mean Corpuscular Hgb Conc 34.8 g/dL (32.0-36.0); Mean Corpuscular Volume 94.3 fL (80.0-100.0); Mean Platelet Volume 11.1 fL (9.4-12.4); Monocytes # (auto) 0.94 K/uL (0.11-0.59); Monocytes % (auto) 14.8 %; Neutrophils # (auto) 3.92 K/uL (1.40-6.50); Neutrophils % (auto) 61.8 %; Platelet Count 159 K/uL (130-400); RDW Coefficient of Variation 12.6 % (11.5-14.5); RDW Standard Deviation 43.7 fL (36.4-46.3); White Blood Count 6.35 K/ul (4.8-10.8)
[2024-01-19 06:45] LABS: BUN Creatinine Ratio 11.1 (10-20); Calcium 8.7 mg/dl (8.6-10.3); Creatinine Clr Calc Pharmacy 58.9 ml/min; Est GFR (African American) 93.5 ml/min; Est GFR (Non-African American) 80.6 ml/min; Potassium 3.3 mmol/L (3.5-5.1)
[2024-01-19] MEDS: POTASSIUM CHLORIDE CRTAB 20 MEQ TABCR PO STA ×2 (09:38→14:38)
[2024-01-19] MEDS: FAMOTIDINE 20 MG TAB PO SCH (09:56)
--- NOTE | 2024-01-19 10:55 | Electrocardiogram Report ---
Test Reason : Blood Pressure : / mmHG Vent. Rate : 050 BPM Atrial Rate : 050 BPM P-R Int : 228 ms QRS Dur : 132 ms QT Int : 494 ms P-R-T Axes : 078 -25 088 degrees QTc Int : 450 ms Sinus bradycardia with 1st degree A-V block Left bundle branch block Abnormal ECG When compared with ECG of 13-SEP-2023 08:36, No significant change Confirmed by Eric Pham ([id number]) on 01/19/2024 10:55:00 AM Referred By: REFERRED SELF Confirmed By:Eric Pham
--- NOTE | 2024-01-19 11:02 | Electrocardiogram Report ---
Test Reason : Blood Pressure : / mmHG Vent. Rate : 050 BPM Atrial Rate : 050 BPM P-R Int : 222 ms QRS Dur : 124 ms QT Int : 526 ms P-R-T Axes : 074 -20 083 degrees QTc Int : 479 ms Sinus bradycardia with 1st degree A-V block Left bundle branch block Abnormal ECG When compared with ECG of 16-JAN-2024 15:38, (unconfirmed) No significant change was found Confirmed by Eric Pham ([id number]) on 01/19/2024 11:02:04 AM Referred By: REFERRED SELF Confirmed By:Eric Pham
--- NOTE | 2024-01-19 14:31 | Hospitalist Progress Note ---
Date of Service January 19, 2024 Assessment & Plan (1) Fracture of lumbar spine: Plan: 2nd to fall. * Nondisplaced fractures -- posterior cortex/bilateral pedicles of the L1 vertebral body. * Nondisplaced fracture through the tip of the L2 spinous process. * Trace retroperitoneal hemorrhage along the psoas muscles and posterior to the kidneys. Fortunately her LE motor exam remains intact. No paresthesias or other neuro symptoms of legs. H/H remain stable on serial CBCs. Appreciate consultation by Dr Joy from ortho-spine. He advises activity as tolerated but avoidance of twisting, bending, heavy lifting, etc. No back brace advised. Bedrest discontinued. 25-OH vit D level wnl. Pain control - scheduled tylenol, norco prn, dilaudid prn. Recheck CBC in am due to retroperitoneal hemorrhage. If H/H remain stable resume chemical DVT proph ?? (2) Concussion: Plan: suspect she suffered a concussion from her fall with head injury supportive care symptoms (headache, some mild confusion, etc) have improved while hospitalized (3) Sinus bradycardia: Plan: due to her sinus bradycardia, LBBB, first degree AV block - obtained echo -- intact LV function seen consider prolonged monitoring as outpatient to rule out higher block, pauses, etc contributing to fall risk TSH noted to be wnl - 07/2023 (4) Facial fracture: Plan: Right zygomatic arch fracture. Lateral orbital wall as well as nondisplaced fracture of the inferior orbital wall. Fracture of the lateral and anterior dietz of the maxillary sinus with intra- sinus hemorrhage. Admitting MD was in touch with Dr Zachery Jurado oral surgery - nothing operative at this time. I spoke directly with Dr Jurado who will see Mrs Hicks in formal consultation; he suspects nothing surgical is needed. Pain control - * schedule tylenol 500mg TID * norco 5's prn * dilaudid 0.25mg q6h prn 25-OH vit D level = 39. (5) Left bundle-branch block: Plan: chronic, long standing dating back several years echo with preserved EF no ischemic symptoms (6) Low back pain: Plan: see #1 above 2nd L1/L2 fractures (7) Acute metabolic encephalopathy: Plan: head injury with concussion will play a massive role can't exclude toxic effects from pain meds head CT x 2 without ICH or stroke B12 wnl TSH wnl (07/2023) confusion has improved today was her best day (8) Hyponatremia: Plan: looked volume contracted at admission Na level climbed to 133 with gentle IV fluids then reverted back to 131 urine osm and urine Na today NOT c/w SIADH repeat BMP am for stability add serum osm Plan GERD: PPI Anxiety: Continue sertraline Constipation: senna + miralax; give dulcolax suppos x 1 today since no BM in several days DVT prophylaxis: SCDs only at this time ; if H/H remain stable and if ok with Dr Joy perhaps add chemical DVT proph updated pt's daughter at bedside today dispo - rehab post-d/c Admission and Anticipated Discharge Date Admission Date: January 17, 2024 Subjective back pain is a "little better" today still no leg pains or paresthesias facial pain is similar or modestly better today no headache feels that she is lucid/clear and not confused still with mild nausea and appetite still not good no BM since being at home no abd pain pt's daughter was at bedside during the visit Dr Joy saw patient in consult earlier today - bedrest not needed; can ambulate as tolerated but avoid twisting/bending/etc back brace not advised by Dr Joy Review of Systems Review of Systems: cv - no orthopnea pulm - no dyspnea GI - no vomiting; passing copious flatus - having some issues with voiding; needed straight cath overnight; was able to void 2x's today, however, no bedpan Physical Exam Physical Exam: gen - lying in bed, awake, alert, comfortable - looks better today head - extensive facial bruising and right orbital bruising with abrasion on zygoma area on right; gross swelling is mildly improved today; not as much swelling on lower 1/3 of face today mouth - MMM eyes - left pupil is larger than right pupil (chronic) neck - no JVD heart - naeem, s1 s2, 1/6 systolic murmur lungs - CTA b/l abd - soft NT ND BS+ ext - no edema, pulses 2+ b/l neuro - strength 5/5 x both legs (prox & distal strength) Results & Data Results & Data Vital Signs (Past 12 Hours) Vital Signs Temp Pulse Pulse Resp BP BP Pulse Ox 01/19/24 13:58 53 L 01/19/24 11:16 36.5 C 52 L 16 144/67 H 97 01/19/24 10:40 170/73 H 01/19/24 08:00 56 L 01/19/24 07:44 36.7 C 60 16 175/69 H 98 01/19/24 02:41 36.4 C L 56 L 16 159/76 H 95 O2 Del Method 01/19/24 13:58 01/19/24 11:16 Room Air 01/19/24 10:40 01/19/24 08:00 01/19/24 07:44 Room Air 01/19/24 02:41 Room Air Laboratory Results Laboratory Results - last 24 hr 01/19/24 01/19/24 05:33 Unknown WBC 6.35 RBC 3.50 L Hgb 11.5 L Hct 33.0 L MCV 94.3 MCH 32.9 MCHC 34.8 RDW Std Deviation 43.7 RDW Coeff of Bertin 12.6 Plt Count 159 MPV 11.1 Immature Gran % (Auto) 0.5 Neut % (Auto) 61.8 Lymph % (Auto) 21.7 [place] % (Auto) 14.8 Eos % (Auto) 0.6 Baso % (Auto) 0.6 Neut # (Auto) 3.92 Lymph # (Auto) 1.38 [place] # (Auto) 0.94 H Eos # (Auto) 0.04 Baso # (Auto) 0.04 Immature Gran # (Auto) 0.03 Sodium 131 L Potassium 3.3 L Chloride 98 Carbon Dioxide 28 Anion Gap 5 BUN 7 Creatinine 0.63 Est Cr Clr Drug Dosing 58.9 Est GFR ( Amer) 93.5 Est GFR (Non-Af Amer) 80.6 BUN/Creatinine Ratio 11.1 Glucose 121 H Calcium 8.7 Urine Osmolality 210 L Ur Random Sodium 20 PG Care Time/CCT Total # of Minutes Spent Total Time Spent with Patient: Total time spent is greater than 50% in coordination of care (as documented) at patient's floor/unit and/or counseling patient: Coding Level of Care Code 89423 SUB INP/OBS CARE 2/35MIN Diagnoses Fracture of lumbar spine S32.009A Concussion S06.0XAA Sinus bradycardia R00.1 Facial fracture S02.92XA Encounter type: initial encounter Facial bone/location: unspecified facial bone Fracture type: closed Left bundle-branch block I44.7 Low back pain M54.50 Acute metabolic encephalopathy G93.41 Hyponatremia E87.1 (4) Facial fracture Encounter type: initial encounter Facial bone/location: unspecified facial bone Fracture type: closed Qualified Code(s): S02.92XA - Unspecified fracture of facial bones, initial encounter for closed fracture
[2024-01-19] MEDS: bisacodyL 10 MG SUPP PR PRN (14:39)
--- NOTE | 2024-01-19 15:24 | Orthopedic Consultation ---
Date of Service January 19, 2024 Assessment & Plan (1) Fracture of lumbar spine: (2) Low back pain: (3) Fall: History of Present Illness Reason for Consultation: Low back pain, nondisplaced L1 and L2 fractures. Requesting Physician: . Attending Physician: Enzo Quezada MD 88-year-old female who presents to the ER following a mechanical fall. [facility] carrying 2 milkshakes and a Shoe box and tripped over the curved pavement and fell. She did hit her head. She then fell backwards onto her back. She hit her head off of a light pole. She denies any loss of consciousness. No blood thinners. She admits to right facial pain. No blurry vision or double vision. No chest pain or shortness of breath. Worst the pain is in her lower back midline. Denies any weakness or numbness in the legs. In talking with the patient today she notes some low back pain, but no lower extremity symptomatology, she denies having any significant symptomatology prior to the fall involving the lumbar spine. Exam reveals her to indicate pain in the mid lumbar spine lower lumbar spine nontender to palpation to any significant degree. She has intact strength in the lower extremities, negative straight leg raise. Review of CT scan images lumbar spine from January 16, 2024 was performed, this reveals multilevel degenerative changes throughout the lumbar spine. There does appear to be nondisplaced fractures in the posterior aspect of the pedicles bilaterally at L1, and very minor nondisplaced fractures involving the tips of the spinous processes of L1 and L2. Impression: Nondisplaced fractures as described at L1 and L2, degenerative changes involving lumbar spine status post fall. Plan: Today I did discuss the nature of the injury to the patient, related to her that I do not think she needs a brace, she should just avoid any bending lifting twisting to any significant degree, follow-up in 2 weeks and we will then obtain radiographs to check on the fractures. She can continue with mobilization with physical therapy, I do not think these are unstable fractures if pain were to increase significantly we would obtain radiographs sooner. Allergies Allergy/AdvReac Type Severity Reaction Status Date / Time sulfamethoxazole Allergy Intermediate Rash Verified 01/16/24 19:44 [From Bactrim] trimethoprim [From Bactrim] Allergy Intermediate Rash Verified 01/16/24 19:44 Home Medications Medication Instructions Recorded Confirmed Type lysine 1,000 mg tablet 500 mg PO QAM 11/28/18 01/16/24 History acetaminophen 500 mg tablet 1,000 mg PO Q8H PRN Pain 08/17/19 01/16/24 History (Tylenol Extra Strength) calcium citrate 315 mg 1 tab PO BID 08/17/19 01/16/24 History calcium-vitamin D3 6.25 mcg (250 unit) tablet (Citracal + Vitamin D Maximum) cetirizine 10 mg capsule 10 mg PO QPM 08/17/19 01/16/24 History timolol 0.5 % eye drops 1 drp OPL DAILY 08/23/20 01/16/24 History aspirin 81 mg tablet,delayed 81 mg PO DAILY 02/05/22 01/16/24 History release (Adult Low Dose Aspirin) hydrocortisone 2.5 % topical cream 1 applic [place] DAILY PRN Hemorrhoids 02/05/22 01/16/24 History with perineal applicator (Anusol-HC) latanoprost 0.005 % eye drops 1 drp OPL HS 12/09/22 01/16/24 History vitamin B complex 1 tab PO DAILY 12/09/22 01/16/24 History omeprazole 40 mg capsule,delayed 40 mg PO QAM #90 caps 02/03/23 01/16/24 Rx release clotrimazole-betamethasone 1 1 applic topical .qhs #45 grams 06/24/23 01/16/24 Rx %-0.05 % topical cream sertraline 25 mg tablet See Rx Instructions .Route 07/09/23 01/16/24 Rx .COMPLEX #30 tabs meloxicam 7.5 mg tablet See Rx Instructions .Route 07/21/23 01/16/24 Rx .COMPLEX #180 tabs azelastine 137 mcg (0.1 %) nasal 137 mcg (0.137 mL) intranasal BID 07/23/23 0 01/16/24 Rx spray #30 mL atorvastatin 20 mg tablet 20 mg PO HS #90 tabs 08/27/23 01/16/24 Rx dexamethasone 0.5 mg/5 mL oral 0.5 mg PO QID PRN Other 09/13/23 01/16/24 History elixir promethazine 12.5 mg tablet 12.5 mg PO Q6H PRN nausea and 09/13/23 01/16/24 Rx vomiting #12 tabs lorazepam 1 mg tablet 1 mg PO DAILY #30 tabs 11/26/23 01/16/24 Rx mometasone-formoterol HFA 200 2 puff inhalation BID #13 grams 12/24/23 01/16/24 Rx mcg-5 mcg/actuation aerosol inhaler (Dulera) benzonatate 100 mg capsule 100 mg PO TID PRN Cough 01/16/24 01/16/24 History famotidine 20 mg tablet 20 mg PO DAILY 01/16/24 01/16/24 History fluticasone propionate 50 1 spray intranasal QAM 01/16/24 01/16/24 History mcg/actuation nasal spray,suspension sodium chloride 0.65 % nasal spray 1 - 2 spray intranasal HS PRN 01/16/24 01/16/24 History aerosol ([place] Saline) Nasal Congestion Past Med/Surg History Problem List (Updated 01/18/24 @ 14:17 by Enzo Quezada MD) Fracture of lumbar spine Hyponatremia Acute metabolic encephalopathy Low back pain Ambulatory dysfunction (Acute) Back pain (Acute) Fall (Acute) Facial fracture (Acute) Concussion Fall Osteoporosis (Acute) First degree atrioventricular block (Chronic) Dyslipidemia (Chronic) Anxiety (Chronic) Allergic rhinitis (Acute) Glaucoma SNHL (sensorineural hearing loss) Sinus bradycardia (Chronic) Stress incontinence Straining during bowel movements Disc degeneration, lumbar Scoliosis of lumbar region due to degenerative disease of spine in adult Urinary Incontinence Lower abdominal pain Rectal bleeding Hyperglycemia Fatigue Chronic gastroesophageal reflux disease (Chronic) Left bundle-branch block (Chronic) Insomnia (Acute) Lichen planus (Acute) Osteoarthritis of hip (Acute) Vaginal cyst (Acute) Venous insufficiency (Chronic) Medical History Allergic drug reaction Osteoarthritis History of DVT (deep vein thrombosis) Diverticulosis Surgical History Hx of tonsillectomy H/O wisdom tooth extraction Status post total right knee replacement History of ear surgery Hx of removal of cyst History of esophagogastroduodenoscopy (EGD) (2014) History of colonoscopy (2015) History of detached retina repair History of cataract surgery Family History Unknown Parkinson disease Deafness Father Heart disease Deafness Arthritis Cardiac disorder Skin cancer Mother Parkinson disease Dementia Deafness Other Cancer Hypertension No family history of adverse response to anesthesia No family history of bleeding disorder Denies family history of Allergies Stroke Social History Smoking Status: Never smoker Second Hand Exposure: No; Do You Dip or Chew Tobacco: No; Tobacco Cessation Education Requested by Patient: No Hx Alcohol Use: No Hx Substance Use: No Preferred Language: Yakut Communication Ability: Effective Visual Impairment: No Limitations Box Coverer Hand Required: No Beliefs That Will Affect Care: None marital status: Current Living Situation: Alone Current Living Situation Comment: lives at home alone, daughter lives close by, in SNF current occupational status: retired Other Information That Helps Us Care for You: No Feels Safe at Home: Yes Safety Concerns: Feels Safe At This Time Assistive Devices: Cane Review of Systems All systems reviewed & are unremarkable except as noted in HPI & below. Physical Exam . Results & Data Results & Data Laboratory Results . Diagnostic Findings . PG Care Time/CCT Total # of Minutes Spent Total Time Spent with Patient: Total time spent is greater than 50% in coordination of care (as documented) at patient's floor/unit and/or counseling patient: Coding Level of Care Code 80488 IN/OBS CONSULT LVL 3,45M Diagnoses Fracture of lumbar spine S32.009A Low back pain M54.50 Fall W19.XXXA Encounter type: initial encounter (3) Fall Encounter type: initial encounter Qualified Code(s): W19.XXXA - Unspecified fall, initial encounter
[2024-01-20] MEDS: HYDROmorphone INJ 0.5 MG/0.5 ML SYR IV PRN (00:14)
--- NOTE | 2024-01-20 09:07 | Electrocardiogram Report ---
Test Reason : Blood Pressure : / mmHG Vent. Rate : 072 BPM Atrial Rate : 072 BPM P-R Int : 198 ms QRS Dur : 122 ms QT Int : 472 ms P-R-T Axes : 075 -27 108 degrees QTc Int : 516 ms Poor data quality, interpretation may be adversely affected Sinus rhythm with Premature supraventricular complexes and with occasional Premature ventricular comp lexes Left bundle branch block Abnormal ECG When compared with ECG of 16-JAN-2024 18:47, Premature ventricular complexes are now Present Premature supraventricular complexes are now Present Confirmed by Anival Villasenor ([id number] on 01/20/2024 9:07:06 AM Referred By: REFERRED SELF Confirmed By:Anival Villasenor
[2024-01-20 09:39] LABS: Hematocrit (blood only) 34.3 % (37.0-47.0); Hemoglobin 11.7 g/dl (12.0-16.0); Mean Corpuscular Hemoglobin 32.4 pg (25.0-34.0); Mean Corpuscular Hgb Conc 34.1 g/dL (32.0-36.0); Mean Platelet Volume 10.6 fL (9.4-12.4); Platelet Count 176 K/uL (130-400); RDW Coefficient of Variation 12.8 % (11.5-14.5); RDW Standard Deviation 44.2 fL (36.4-46.3); Red Blood Count 3.61 M/uL (4.20-5.40); White Blood Count 8.62 K/ul (4.8-10.8)
[2024-01-20 10:26] LABS: BUN Creatinine Ratio 12.8 (10-20); Calcium 8.9 mg/dl (8.6-10.3); Creatinine Clr Calc Pharmacy 47.6 ml/min; Est GFR (African American) 79.2 ml/min; Est GFR (Non-African American) 68.4 ml/min; Potassium 3.8 mmol/L (3.5-5.1)
--- NOTE | 2024-01-20 17:01 | Nephrology Consultation ---
Date of Consultation January 20, 2024 Assessment & Plan (1) Hyponatremia: (2) Fracture of lumbar spine: (3) Concussion: (4) Fall: Plan Acute hyponatremia with prior history of mild intermittent hyponatremia before. On admission serum sodium was 131 which improved to 133 but again dropped to 130 this morning. Initial urine osmolality was elevated above 400 but dropped to 210. Admitted after a fall and facial fracture as well as fracture of lumbar spine. Hyponatremia, could be secondary to high ADH state in the setting of pain and nausea after the fall and fracture. No offending medications to blame. Blood pressure has been well-controlled. -- Avoid normal saline, free water restriction to less than 1500 mL/day. -- Repeat serum sodium, if stays low, will consider salt tablet -- Focus on control of pain and nausea Thank you for allowing me to participate in your patient's care. It was a pleasure to see Yelitza. History of Present Illness Reason for Consultation: Hyponatremia Attending Physician: Farzad Mcarthur History of Present Illness Ms. Yelitza Hicks is an 88-year-old female with a PMH of chronic mild hyponatremia, h/o first-degree AV block, left bundle branch block, osteoarthritis, anxiety/depression, admitted after a mechanical fall. Nephrology consult was requested for management of hyponatremia. EMR records are reviewed in detail during patient's visit. Yelitza presented to ER after she had a mechanical fall at [facility] while she was bringing food to her when she slipped and fell, striking her face on the bottom of a concrete post on her way down. She did not lose consciousness. She did not have any lightheadedness, dizziness, chest pain, chest pressure, presyncope prior to her fall. Imaging showed facial fracture, concussion and non displaced lumber spine fracture. Has been receiving morphine but continues to have on going pain and nausea. On admission lab was notable for Na of 132 which improved to 133 after receiving IV fluid but again dropped to 130 this morning. Other electrolytes were acceptable. Urine osmolality was 453 , dropped to 210. Records review showed history of mild intermittent hyponatremia, serum sodium has been variable from 130 to 134. Has not been on any thiazide diuretics. No history of diabetes, CHF. Nonsmoker, recent chest x-ray was unremarkable. CT abdomen pelvis was unremarkable. No history of hypothyroidism or adrenal insufficiency. No personal history of malignancy. Urinalysis was negative for proteinuria, hematuria pyuria. She reports ongoing headache, back pain and nausea. Denies any confusion. No shortness of breath, chest pain, fever or chills. No dysuria. Allergies Allergy/AdvReac Type Severity Reaction Status Date / Time sulfamethoxazole Allergy Intermediate Rash Verified 01/16/24 19:44 [From Bactrim] trimethoprim [From Bactrim] Allergy Intermediate Rash Verified 01/16/24 19:44 Home Medications Medication Instructions Recorded Confirmed Type lysine 1,000 mg tablet 500 mg PO QAM 11/28/18 01/16/24 History acetaminophen 500 mg tablet 1,000 mg PO Q8H PRN Pain 08/17/19 01/16/24 History (Tylenol Extra Strength) calcium citrate 315 mg 1 tab PO BID 08/17/19 01/16/24 History calcium-vitamin D3 6.25 mcg (250 unit) tablet (Citracal + Vitamin D Maximum) cetirizine 10 mg capsule 10 mg PO QPM 08/17/19 01/16/24 History timolol 0.5 % eye drops 1 drp OPL DAILY 08/23/20 01/16/24 History aspirin 81 mg tablet,delayed 81 mg PO DAILY 02/05/22 01/16/24 History release (Adult Low Dose Aspirin) hydrocortisone 2.5 % topical cream 1 applic [place] DAILY PRN Hemorrhoids 02/05/22 01/16/24 History with perineal applicator (Anusol-HC) latanoprost 0.005 % eye drops 1 drp OPL HS 12/09/22 01/16/24 History vitamin B complex 1 tab PO DAILY 12/09/22 01/16/24 History omeprazole 40 mg capsule,delayed 40 mg PO QAM #90 caps 02/03/23 01/16/24 Rx release clotrimazole-betamethasone 1 1 applic topical .qhs #45 grams 06/24/23 01/16/24 Rx %-0.05 % topical cream sertraline 25 mg tablet See Rx Instructions .Route 07/09/23 01/16/24 Rx .COMPLEX #30 tabs meloxicam 7.5 mg tablet See Rx Instructions .Route 07/21/23 01/16/24 Rx .COMPLEX #180 tabs azelastine 137 mcg (0.1 %) nasal 137 mcg (0.137 mL) intranasal BID 07/23/23 01/16/24 Rx spray #30 mL atorvastatin 20 mg tablet 20 mg PO HS #90 tabs 08/27/23 01/16/24 Rx dexamethasone 0.5 mg/5 mL oral 0.5 mg PO QID PRN Other 09/13/23 01/16/24 History elixir promethazine 12.5 mg tablet 12.5 mg PO Q6H PRN nausea and 09/13/23 01/16/24 Rx vomiting #12 tabs lorazepam 1 mg tablet 1 mg PO DAILY #30 tabs 11/26/23 01/16/24 Rx mometasone-formoterol HFA 200 2 puff inhalation BID #13 grams 12/24/23 01/16/24 Rx mcg-5 mcg/actuation aerosol inhaler (Dulera) benzonatate 100 mg capsule 100 mg PO TID PRN Cough 01/16/24 01/16/24 History famotidine 20 mg tablet 20 mg PO DAILY 01/16/24 01/16/24 History fluticasone propionate 50 1 spray intranasal QAM 01/16/24 01/16/24 History mcg/actuation nasal spray,suspension sodium chloride 0.65 % nasal spray 1 - 2 spray intranasal HS PRN 01/16/24 01/16/24 History aerosol ([place] Sal[place]) Nasal Congestion Patient History Medical History Allergic drug reaction Osteoarthritis History of DVT (deep vein thrombosis) Diverticulosis Surgical History Hx of tonsillectomy H/O wisdom tooth extraction Status post total right knee replacement History of ear surgery Hx of removal of cyst History of esophagogastroduodenoscopy (EGD) (2014) History of colonoscopy (2016) History of detached retina repair History of cataract surgery Family History Unknown Parkinson disease Deafness Father Heart disease Deafness Arthritis Cardiac disorder Skin cancer Mother Parkinson disease Dementia Deafness Other Cancer Hypertension No family history of adverse response to anesthesia No family history of bleeding disorder Denies family history of Allergies Stroke Social History Smoking Status: Never smoker Second Hand Exposure: No; Do You Dip or Chew Tobacco: No; Tobacco Cessation Education Requested by Patient: No Hx Alcohol Use: No Hx Substance Use: No Preferred Language: Macedonian Communication Ability: Effective Visual Impairment: No Limitations Emergency Preparedness Coordinator Required: No Beliefs That Will Affect Care: None marital status: Current Living Situation: Alone Current Living Situation Comment: lives at home alone, daughter lives close by, in SNF current occupational status: retired Other Information That Helps Us Care for You: No Feels Safe at Home: Yes Safety Concerns: Feels Safe At This Time Assistive Devices: Cane Review of Systems Review of Systems: Detailed review of system was done and pertinent positives and negatives are mentioned above. Physical Exam Constitutional: WD/WN, vitals as above + ill appearing; no acute distress ENMT: facial contusion Neck: normal visual inspection Respiratory: Auscultation: lungs clear to auscultation bilaterally Cardiovascular: Rate/Rhythm: regular rate and regular rhythm Heart Sounds: normal S1 and normal S2 Extremities: no edema Gastrointestinal (Abdomen): Inspection/Auscultation: abdomen normal to inspection Musculoskeletal: Extremities: extremities normal to inspection Neurologic: no focal motor deficits and not confused Psychiatric: Orientation: alert and oriented x 3 Affect: euthymic affect Results & Data Vital Signs (Past 12 Hours) Vital Signs Temp Pulse Resp BP BP Pulse Ox O2 Del Method 01/20/24 10:34 36.5 C 51 L 17 164/69 H 95 Room Air 01/20/24 10:08 Room Air 01/20/24 07:19 36.7 C 69 17 138/64 96 Room Air 01/20/24 02:57 36.4 C L 63 18 172/77 H 98 Room Air PG Care Time/CCT Total # of Minutes Spent Total Time Spent with Patient: Total time spent is greater than 50% in coordination of care (as documented) at patient's floor/unit and/or counseling patient: Coding Level of Care Code 35004 INT INP/OBS CARE 3/75MIN Diagnoses Hyponatremia E87.1 Fracture of lumbar spine S32.009A Concussion S06.0XAA Fall W19.XXXA
[2024-01-20] MEDS: LORazepam 1 MG TAB PO PRN (20:13)
--- NOTE | 2024-01-20 20:47 | Hospitalist Progress Note ---
Date of Service January 20, 2024 Assessment & Plan (1) Fracture of lumbar spine: Plan: 2nd to fall. * Nondisplaced fractures -- posterior cortex/bilateral pedicles of the L1 vertebral body. * Nondisplaced fracture through the tip of the L2 spinous process. * Trace retroperitoneal hemorrhage along the psoas muscles and posterior to the kidneys. Fortunately her LE motor exam remains intact. No paresthesias or other neuro symptoms of legs. H/H remain stable on serial CBCs. Appreciate consultation by Dr Joy from ortho-spine. He advises activity as tolerated but avoidance of twisting, bending, heavy lifting, etc. No back brace advised. Bedrest discontinued. 25-OH vit D level wnl. Pain control - scheduled tylenol, norco prn, dilaudid prn. Recheck CBC in am due to retroperitoneal hemorrhage. If H/H remain stable will resume chemical DVT proph in am of 01/20 (2) Concussion: Plan: suspect she suffered a concussion from her fall with head injury supportive care symptoms (headache, some mild confusion, etc) have improved while hospitalized (3) Sinus bradycardia: Plan: due to her sinus bradycardia, LBBB, first degree AV block - obtained echo -- intact LV function seen consider prolonged monitoring as outpatient to rule out higher block, pauses, etc contributing to fall risk TSH noted to be wnl - 07/2023 (4) Facial fracture: Plan: Right zygomatic arch fracture. Lateral orbital wall as well as nondisplaced fracture of the inferior orbital wall. Fracture of the lateral and anterior dietz of the maxillary sinus with intra- sinus hemorrhage. Admitting MD was in touch with Dr Zachery Jurado oral surgery - nothing operative at this time. I spoke directly with Dr Jurado who will see Mrs Hicks in formal consultation; he suspects nothing surgical is needed. Pain control - * schedule tylenol 500mg TID * norco 5's prn * dilaudid 0.25mg q6h prn 25-OH vit D level = 39. (5) Left bundle-branch block: Plan: chronic, long standing dating back several years echo with preserved EF no ischemic symptoms (6) Low back pain: Plan: see #1 above 2nd L1/L2 fractures (7) Acute metabolic encephalopathy: Plan: head injury with concussion will play a massive role can't exclude toxic effects from pain meds head CT x 2 without ICH or stroke B12 wnl TSH wnl (07/2023) confusion has improved today was her best day (8) Hyponatremia: Plan: looked volume contracted at admission Na level climbed to 133 with gentle IV fluids then reverted back to 131 urine osm and urine Na today NOT c/w SIADH repeat BMP am for stability add serum osm Plan GERD: PPI Anxiety: Continue sertraline Constipation: senna + miralax; give dulcolax suppos x 1 today since no BM in several days ordered additional miralax DVT prophylaxis: SCDs only at this time ;Dr. Joy agrees with dvt propy dispo - rehab post-d/c Admission and Anticipated Discharge Date Admission Date: January 17, 2024 Subjective Patient reports no new symptoms. Review of Systems Review of Systems: All systems reviewed & are unremarkable except as noted in HPI & below Physical Exam Physical Exam: Consitutional- lying in bed, awake, alert, comfortable HEENT - extensive facial bruising and right orbital bruising with abrasion on zygoma area on right; gross swelling is mildly improved today; not as much swelling on lower 1/3 of face today, MMM left pupil is larger than right pupil (chronic), no JVD Heart - naeem, s1 s2, 1/6 systolic murmur Lungs - CTA b/l Abd - soft NT ND BS+ Ext - no edema, pulses 2+ b/l Neuro - strength 5/5 x both legs (prox & distal strength) Results & Data Results & Data Vital Signs (Past 12 Hours) Vital Signs Temp Pulse Pulse Resp BP Pulse Ox O2 Del Method 01/20/24 19:10 36.4 C L 62 19 172/73 H 98 Room Air 01/20/24 15:09 36.7 C 57 L 17 131/68 97 Room Air 01/20/24 14:53 57 L 01/20/24 10:34 36.5 C 51 L 17 164/69 H 95 Room Air 01/20/24 10:08 Room Air PG Care Time/CCT Total # of Minutes Spent Total Time Spent with Patient: Total time spent is greater than 50% in coordination of care (as documented) at patient's floor/unit and/or counseling patient: Coding Level of Care Code 48667 SUB INP/OBS CARE 2/35MIN Diagnoses Fracture of lumbar spine S32.009A Concussion S06.0XAA Sinus bradycardia R00.1 Facial fracture S02.92XA Encounter type: initial encounter Facial bone/location: unspecified facial bone Fracture type: closed Left bundle-branch block I44.7 Low back pain M54.50 Acute metabolic encephalopathy G93.41 Hyponatremia E87.1 (4) Facial fracture Encounter type: initial encounter Facial bone/location: unspecified facial bone Fracture type: closed Qualified Code(s): S02.92XA - Unspecified fracture of facial bones, initial encounter for closed fracture
[2024-01-21 07:13] LABS: Hematocrit (blood only) 34.7 % (37.0-47.0); Hemoglobin 11.8 g/dl (12.0-16.0); Mean Corpuscular Hemoglobin 32.4 pg (25.0-34.0); Mean Corpuscular Volume 95.3 fL (80.0-100.0); Platelet Count 181 K/uL (130-400); RDW Coefficient of Variation 12.9 % (11.5-14.5); RDW Standard Deviation 45.2 fL (36.4-46.3); Red Blood Count 3.64 M/uL (4.20-5.40); White Blood Count 6.02 K/ul (4.8-10.8)
[2024-01-21 07:32] LABS: Albumin Level 3.6 gm/dl (3.4-5.0); BUN Creatinine Ratio 13.4 (10-20); Calcium 8.8 mg/dl (8.6-10.3); Creatinine Clr Calc Pharmacy 55.4 ml/min; Est GFR (African American) 91.6 ml/min; Phosphorus 3.7 mg/dl (2.5-4.9); Potassium 3.7 mmol/L (3.5-5.1)
--- NOTE | 2024-01-21 09:09 | Oral/Maxillofacial Consult ---
Date of Consultation January 21, 2024 Assessment & Plan (1) Zygomatic fracture, right side, subsequent encounter for fracture with routine healing: (2) Traumatic ecchymosis of face: History of Present Illness Reason for Consultation: facial fractures right side sinus orbit Attending Physician: Farzad Mcarthur History of Present Illness Patient is an 88-year-old female who presents to the ER following a mechanical fall. She was walking in the center care carrying 2 milkshakes and a Shoe box and tripped over the curved pavement and fell. She did hit her head. She then fell backwards onto her back. She hit her head off of a light pole. She denies any loss of consciousness. No blood thinners. She admits to right facial pain. No blurry vision or double vision. No chest pain or shortness of breath. Worst the pain is in her lower back midline. Denies any weakness or numbness in the legs. CT facial bones wo con CLINICAL HISTORY: fall FINDINGS: Nasal bones are normal. The mandible is intact. The temporomandibular joints are anatomically aligned. Pterygoid plates are intact. There is a fracture of the right zygomatic arch. There are fractures of the lateral orbital wall as well as nondisplaced fracture of the inferior orbital wall. Fracture of the lateral and anterior dietz of the maxillary sinus. The globes are normal and symmetric, without proptosis, obvious disruption or lens dislocation. There is no orbital radiopaque foreign body. The orbital dietz are intact. The retrobulbar fat is without evidence of disruption. Extraocular muscles are normal and symmetric. Optic nerve sheath complexes are normal in course and caliber. Right maxillary hyperdense layering fluid is seen compatible with hemorrhage. IMPRESSION: Findings compatible with zygomaticomaxillary complex fracture. I reviewed the CT and examined Yelitza at bedside All the fractures noted are non displaced and present no functional or cosmetics concerns. No treatment needed. No eye issues,- good ROM no double vision No sinus issues,facial ecchymosis is resolving. Occlusion and TMJ are w/o problems, no paraesthesia I reviewed with Yelitza that she will not require any surgical treatment as all the fractures are insignificant and will not present any residual cosmetic or functional impairments. Allergies Allergy/AdvReac Type Severity Reaction Status Date / Time sulfamethoxazole Allergy Intermediate Rash Verified 01/16/24 19:44 [From Bactrim] trimethoprim [From Bactrim] Allergy Intermediate Rash Verified 01/16/24 19:44 Home Medications Medication Instructions Recorded Confirmed Type lysine 1,000 mg tablet 500 mg PO QAM 11/28/18 01/16/24 History acetaminophen 500 mg tablet 1,000 mg PO Q8H PRN Pain 08/17/19 01/16/24 History (Tylenol Extra Strength) calcium citrate 315 mg 1 tab PO BID 08/17/19 01/16/24 History calcium-vitamin D3 6.25 mcg (250 unit) tablet (Citracal + Vitamin D Maximum) cetirizine 10 mg capsule 10 mg PO QPM 08/17/19 01/16/24 History timolol 0.5 % eye drops 1 drp OPL DAILY 08/23/20 01/16/24 History aspirin 81 mg tablet,delayed 81 mg PO DAILY 02/05/22 01/16/24 History release (Adult Low Dose Aspirin) hydrocortisone 2.5 % topical cream 1 applic IA DAILY PRN Hemorrhoids 02/05/22 01/16/24 History with perineal applicator (Anusol-HC) latanoprost 0.005 % eye drops 1 drp OPL HS 12/09/22 01/16/24 History vitamin B complex 1 tab PO DAILY 12/09/22 01/16/24 History omeprazole 40 mg capsule,delayed 40 mg PO QAM #90 caps 02/03/23 01/16/24 Rx release clotrimazole-betamethasone 1 1 applic topical .qhs #45 grams 06/24/23 01/16/24 Rx %-0.05 % topical cream sertraline 25 mg tablet See Rx Instructions .Route 07/09/23 01/16/24 Rx .COMPLEX #30 tabs meloxicam 7.5 mg tablet See Rx Instructions .Route 07/21/23 01/16/24 Rx .COMPLEX #180 tabs azelastine 137 mcg (0.1 %) nasal 137 mcg (0.137 mL) intranasal BID 07/23/23 01/16/24 Rx spray #30 mL atorvastatin 20 mg tablet 20 mg PO HS #90 tabs 08/27/23 01/16/24 Rx dexamethasone 0.5 mg/5 mL oral 0.5 mg PO QID PRN Other 09/13/23 01/16/24 History elixir promethazine 12.5 mg tablet 12.5 mg PO Q6H PRN nausea and 09/13/23 01/16/24 Rx vomiting #12 tabs lorazepam 1 mg tablet 1 mg PO DAILY #30 tabs 11/26/23 01/16/24 Rx mometasone-formoterol HFA 200 2 puff inhalation BID #13 grams 12/24/23 01/16/24 Rx mcg-5 mcg/actuation aerosol inhaler (Dulera) benzonatate 100 mg capsule 100 mg PO TID PRN Cough 01/16/24 01/16/24 History famotidine 20 mg tablet 20 mg PO DAILY 01/16/24 01/16/24 History fluticasone propionate 50 1 spray intranasal QAM 01/16/24 01/16/24 History mcg/actuation nasal spray,suspension sodium chloride 0.65 % nasal spray 1 - 2 spray intranasal HS PRN 01/16/2401/15 History aerosol ([place] Saline) Nasal Congestion Patient History Medical History Allergic drug reaction Osteoarthritis History of DVT (deep vein thrombosis) Diverticulosis Surgical History Hx of tonsillectomy H/O wisdom tooth extraction Status post total right knee replacement History of ear surgery Hx of removal of cyst History of esophagogastroduodenoscopy (EGD) (2014) History of colonoscopy (2015) History of detached retina repair History of cataract surgery Family History Unknown Parkinson disease Deafness Father Heart disease Deafness Arthritis Cardiac disorder Skin cancer Mother Parkinson disease Dementia Deafness Other Cancer Hypertension No family history of adverse response to anesthesia No family history of bleeding disorder Denies family history of Allergies Stroke Social History Smoking Status: Never smoker Second Hand Exposure: No; Do You Dip or Chew Tobacco: No; Tobacco Cessation Education Requested by Patient: No Hx Alcohol Use: No Hx Substance Use: No Preferred Language: Somali Communication Ability: Effective Visual Impairment: No Limitations Staffing Consultant Required: No Beliefs That Will Affect Care: None marital status: Current Living Situation: Alone Current Living Situation Comment: lives at home alone, daughter lives close by, in SNF current occupational status: retired Other Information That Helps Us Care for You: No Feels Safe at Home: Yes Safety Concerns: Feels Safe At This Time Assistive Devices: Cane Results & Data Vital Signs (Past 12 Hours) Vital Signs Temp Pulse Pulse Resp BP BP Pulse Ox 01/21/24 07:34 36.6 C 67 18 172/80 H 97 01/21/24 07:23 01/21/24 03:34 182/73 H 01/21/24 02:40 36.7 C 65 18 193/85 H 98 01/20/24 22:40 36.7 C 60 19 151/62 H 95 01/20/24 22:00 59 L O2 Del Method 01/21/24 07:34 Room Air 01/21/24 07:23 Room Air 01/21/24 03:34 01/21/24 02:40 Room Air 01/20/24 22:40 Room Air 01/20/24 22:00 PG Care Time/CCT Total # of Minutes Spent Total Time Spent with Patient: Total time spent is greater than 50% in coordination of care (as documented) at patient's floor/unit and/or counseling patient: Coding Level of Care Code 34315 INT INP/OBS CARE MIN Diagnoses Zygomatic fracture, right side, subsequent encounter for fracture with routine healing S02.40ED Traumatic ecchymosis of face, subsequent encounter S00.83XD Encounter type: subsequent encounter (2) Traumatic ecchymosis of face Encounter type: subsequent encounter Qualified Code(s): S00.83XD - Contusion of other part of head, subsequent encounter
[2024-01-21] MEDS: ENOXAPARIN INJ 40 MG/0.4 ML SYR SQ SCH (09:45)
--- NOTE | 2024-01-21 11:01 | Nephrology Progress Note ---
Date of Service January 21, 2024 Assessment & Plan (1) Hyponatremia: (2) Fracture of lumbar spine: (3) Concussion: (4) Fall: Plan Acute hyponatremia with prior history of mild intermittent hyponatremia before. On admission serum sodium was 131 which improved to 133 but again dropped to 130 this morning. Initial urine osmolality was elevated above 400 but dropped to 210. Admitted after a fall and facial fracture as well as fracture of lumbar spine. Hyponatremia, could be secondary to high ADH state in the setting of pain and nausea after the fall and fracture. No offending medications to blame. Blood pressure has been well-controlled. Sodium slightly improved to 131. --continue free water restriction to less than 1500 mL/day. -- Repeat serum sodium in am Admission and Anticipated Discharge Date Admission Date: January 17, 2024 Kimberly Torre was seen and evaluated this morning. She reports feeling slightly better, nausea seems to have resolved although she continues to have some headache and lower back pain. Sodium improved to 131. Review of Systems Review of Systems: Detailed review of system was done and pertinent positives and negatives are mentioned above. Physical Exam Constitutional: WD/WN, vitals as above + ill appearing; no acute distress Neck: normal visual inspection Respiratory: Auscultation: lungs clear to auscultation bilaterally Cardiovascular: Rate/Rhythm: regular rate and regular rhythm Heart Sounds: normal S1 and normal S2 Extremities: no edema Gastrointestinal (Abdomen): Inspection/Auscultation: abdomen normal to inspection Musculoskeletal: Extremities: extremities normal to inspection Neurologic: no focal motor deficits and not confused Psychiatric: Orientation: alert and oriented x 3 Affect: euthymic affect Results & Data Vital Signs (Past 12 Hours) Vital Signs Temp Pulse Resp BP BP Pulse Ox O2 Del Method 01/21/24 07:34 36.6 C 67 18 172/80 H 97 Room Air 01/21/24 07:23 Room Air 01/21/24 03:34 182/73 H 01/21/24 02:40 36.7 C 65 18 193/85 H 98 Room Air PG Care Time/CCT Total # of Minutes Spent Total Time Spent with Patient: Total time spent is greater than 50% in coordination of care (as documented) at patient's floor/unit and/or counseling patient: Coding Level of Care Code 51914 SUB INP/OBS CARE 2/35MIN Diagnoses Hyponatremia E87.1 Fracture of lumbar spine S32.009A Concussion S06.0XAA Fall W19.XXXA
--- NOTE | 2024-01-21 17:38 | Hospitalist Progress Note ---
Date of Service January 21, 2024 Assessment & Plan (1) Fracture of lumbar spine: Plan: 2nd to fall. * Nondisplaced fractures -- posterior cortex/bilateral pedicles of the L1 vertebral body. * Nondisplaced fracture through the tip of the L2 spinous process. * Trace retroperitoneal hemorrhage along the psoas muscles and posterior to the kidneys. Fortunately her LE motor exam remains intact. No paresthesias or other neuro symptoms of legs. H/H remain stable on serial CBCs. Appreciate consultation by Dr Joy from ortho-spine. He advises activity as tolerated but avoidance of twisting, bending, heavy lifting, etc. No back brace advised. Bedrest discontinued. 25-OH vit D level wnl. Pain control - continues to require scheduled tylenol, norco prn, dilaudid prn. Placed her on dvt prophylaxis, will need to monitor her hemoglobin. Awaiting placement. (2) Concussion: Plan: suspect she suffered a concussion from her fall with head injury supportive care symptoms (headache, some mild confusion, etc) have improved while hospitalized (3) Sinus bradycardia: Plan: due to her sinus bradycardia, LBBB, first degree AV block - obtained echo -- intact LV function seen consider prolonged monitoring as outpatient to rule out higher block, pauses, etc contributing to fall risk TSH noted to be wnl - 07/2023 (4) Facial fracture: Plan: Right zygomatic arch fracture. Lateral orbital wall as well as nondisplaced fracture of the inferior orbital wall. Fracture of the lateral and anterior dietz of the maxillary sinus with intra- sinus hemorrhage. Admitting MD was in touch with Dr Zachery Jurado oral surgery - nothing operative at this time. I spoke directly with Dr Jurado who will see Mrs Hicks in formal consultation; he suspects nothing surgical is needed. Pain control - * schedule tylenol 500mg TID * norco 5's prn * dilaudid 0.25mg q6h prn 25-OH vit D level = 39. (5) Left bundle-branch block: Plan: chronic, long standing dating back several years echo with preserved EF no ischemic symptoms (6) Low back pain: Plan: see #1 above 2nd L1/L2 fractures (7) Acute metabolic encephalopathy: Plan: head injury with concussion will play a massive role can't exclude toxic effects from pain meds head CT x 2 without ICH or stroke B12 wnl TSH wnl (07/2023) confusion has improved today was her best day (8) Hyponatremia: Plan: looked volume contracted at admission Na level climbed to 133 with gentle IV fluids then reverted back to 131 urine osm and urine Na today NOT c/w SIADH consulted nephrology for assistance regarding hyponatremia Plan GERD: PPI Anxiety: Continue sertraline Constipation: senna + miralax; give dulcolax suppos x 1 today since no BM in several days ordered additional miralax DVT prophylaxis: SCDs only at this time ;Dr. Joy agrees with dvt propy dispo - rehab post-d/c Admission and Anticipated Discharge Date Admission Date: January 17, 2024 Subjective 88 yo female reports stilll having pain from her multiple fractures. Review of Systems Review of Systems: All systems reviewed & are unremarkable except as noted in HPI & below Physical Exam Physical Exam: Consitutional- lying in bed, awake, alert, comfortable HEENT - extensive facial bruising and right orbital bruising with abrasion on zygoma area on right; gross swelling is mildly improved today; not as much swelling on lower 1/3 of face today, MMM left pupil is larger than right pupil (chronic), no JVD Heart - naeem, s1 s2, 1/6 systolic murmur Lungs - CTA b/l Abd - soft NT ND BS+ Ext - no edema, pulses 2+ b/l Neuro - strength 5/5 x both legs (prox & distal strength) Results & Data Results & Data Vital Signs (Past 12 Hours) Vital Signs Temp Pulse Pulse Resp BP Pulse Ox O2 Del Method 01/21/24 16:23 36.9 C 59 L 18 142/72 H 95 Room Air 01/21/24 14:55 59 L 01/21/24 14:00 64 01/21/24 11:03 36.3 C L 56 L 18 164/69 H 98 Room Air 01/21/24 07:34 36.6 C 67 18 172/80 H 97 Room Air 01/21/24 07:23 Room Air PG Care Time/CCT Total # of Minutes Spent Total Time Spent with Patient: Total time spent is greater than 50% in coordination of care (as documented) at patient's floor/unit and/or counseling patient: Coding Level of Care Code 90292 SUB INP/OBS CARE 2/35MIN Diagnoses Fracture of lumbar spine S32.009A Concussion S06.0XAA Sinus bradycardia R00.1 Facial fracture S02.92XA Encounter type: initial encounter Facial bone/location: unspecified facial bone Fracture type: closed Left bundle-branch block I44.7 Low back pain M54.50 Acute metabolic encephalopathy G93.41 Hyponatremia E87.1 (4) Facial fracture Encounter type: initial encounter Facial bone/location: unspecified facial bone Fracture type: closed Qualified Code(s): S02.92XA - Unspecified fracture of facial bones, initial encounter for closed fracture
[2024-01-21] MEDS: LIDOCAINE 5% 1 PATCH TD STA (20:07)
[2024-01-22 09:29] LABS: Albumin Level 3.6 gm/dl (3.4-5.0); BUN Creatinine Ratio 13.2 (10-20); Calcium 8.9 mg/dl (8.6-10.3); Creatinine Clr Calc Pharmacy 54.6 ml/min; Est GFR (African American) 91.2 ml/min; Est GFR (Non-African American) 78.6 ml/min; Phosphorus 3.7 mg/dl (2.5-4.9); Potassium 3.7 mmol/L (3.5-5.1)
--- NOTE | 2024-01-22 10:40 | Nephrology Progress Note ---
Date of Service January 22, 2024 Assessment & Plan (1) Hyponatremia: (2) Fracture of lumbar spine: (3) Concussion: (4) Fall: Plan Acute hyponatremia with prior history of mild intermittent hyponatremia before. On admission serum sodium was 131 which improved to 133 but again dropped to 130 this morning. Initial urine osmolality was elevated above 400 but dropped to 210. Admitted after a fall and facial fracture as well as fracture of lumbar spine. Hyponatremia, could be secondary to high ADH state in the setting of pain and nausea after the fall and fracture. No offending medications to blame. Blood pressure has been well-controlled. Sodium improved to 133. --continue free water restriction to less than 1500 mL/day. -- Expect sodium to stay relatively stable with chronic mild hyponatremia. Will sign off, no further nephrology follow-up needed at this time however will be available for any further questions or concerns. Admission and Anticipated Discharge Date Admission Date: January 17, 2024 Kimberly Torre was seen and evaluated this morning. She continues to have lower back pain any movement. Otherwise feeling well, appetite decent. Sodium improved to 133. Review of Systems Review of Systems: Detailed review of system was done and pertinent positives and negatives are mentioned above. Physical Exam Constitutional: WD/WN, vitals as above + ill appearing; no acute distress ENMT: facial contusion. Neck: normal visual inspection Respiratory: Auscultation: lungs clear to auscultation bilaterally Cardiovascular: Rate/Rhythm: regular rate and regular rhythm Heart Sounds: normal S1 and normal S2 Extremities: no edema Neurologic: no focal motor deficits and not confused Psychiatric: Orientation: alert and oriented x 3 Affect: euthymic affect Results & Data Vital Signs (Past 12 Hours) Vital Signs Temp Pulse Resp BP Pulse Ox O2 Del Method 01/22/24 07:29 36.7 C 64 18 157/74 H 94 Room Air 01/22/24 02:40 36.6 C 65 18 155/54 H 96 Room Air 01/21/24 22:58 36.6 C 68 18 142/73 H 96 Room Air PG Care Time/CCT Total # of Minutes Spent Total Time Spent with Patient: Total time spent is greater than 50% in coordination of care (as documented) at patient's floor/unit and/or counseling patient: Coding Level of Care Code 09186 SUB INP/OBS CARE 2/35MIN Diagnoses Hyponatremia E87.1 Fracture of lumbar spine S32.009A Concussion S06.0XAA Fall W19.XXXA
--- NOTE | 2024-01-22 22:19 | Hospitalist Progress Note ---
Date of Service January 22, 2024 Assessment & Plan (1) Fracture of lumbar spine: Plan: 2nd to fall. * Nondisplaced fractures -- posterior cortex/bilateral pedicles of the L1 vertebral body. * Nondisplaced fracture through the tip of the L2 spinous process. * Trace retroperitoneal hemorrhage along the psoas muscles and posterior to the kidneys. Fortunately her LE motor exam remains intact. No paresthesias or other neuro symptoms of legs. H/H remain stable on serial CBCs. Appreciate consultation by Dr Joy from ortho-spine. He advises activity as tolerated but avoidance of twisting, bending, heavy lifting, etc. No back brace advised. Bedrest discontinued. 25-OH vit D level wnl. Pain control - continues to require scheduled tylenol, norco prn, dilaudid prn. Placed her on dvt prophylaxis, will need to monitor her hemoglobin. Awaiting placement. Patient denied with peer to peer. Family appeal underway. (2) Concussion: Plan: suspect she suffered a concussion from her fall with head injury supportive care symptoms (headache, some mild confusion, etc) have improved while hospitalized (3) Sinus bradycardia: Plan: due to her sinus bradycardia, LBBB, first degree AV block - obtained echo -- intact LV function seen consider prolonged monitoring as outpatient to rule out higher block, pauses, etc contributing to fall risk TSH noted to be wnl - 07/2023 (4) Facial fracture: Plan: Right zygomatic arch fracture. Lateral orbital wall as well as nondisplaced fracture of the inferior orbital wall. Fracture of the lateral and anterior dietz of the maxillary sinus with intra- sinus hemorrhage. Admitting MD was in touch with Dr Zachery Jurado oral surgery - nothing operative at this time. I spoke directly with Dr Jurado who will see Mrs Hicks in formal consultation; he suspects nothing surgical is needed. Pain control - * schedule tylenol 500mg TID * norco 5's prn * dilaudid 0.25mg q6h prn * add lidocaine patch 25-OH vit D level = 39. (5) Left bundle-branch block: Plan: chronic, long standing dating back several years echo with preserved EF no ischemic symptoms (6) Low back pain: Plan: see #1 above 2nd L1/L2 fractures (7) Acute metabolic encephalopathy: Plan: head injury with concussion will play a massive role can't exclude toxic effects from pain meds head CT x 2 without ICH or stroke B12 wnl TSH wnl (07/2023) confusion has improved today was her best day (8) Hyponatremia: Plan: looked volume contracted at admission Na level climbed to 133 with gentle IV fluids then reverted back to 131 urine osm and urine Na today NOT c/w SIADH consulted nephrology for assistance regarding hyponatremia Plan GERD: PPI Anxiety: Continue sertraline Constipation: senna + miralax; give dulcolax suppos x 1; patient had multiple BMs yesterday, will monitor. DVT prophylaxis: ;Dr. Joy agrees with dvt propy dispo - rehab post-d/c Admission and Anticipated Discharge Date Admission Date: January 17, 2024 Subjective Patient complaining of constipation. Physical Exam Physical Exam: Consitutional- lying in bed, awake, alert, comfortable HEENT - extensive facial bruising and right orbital bruising with abrasion on zygoma area on right; gross swelling is mildly improved today; not as much swelling on lower 1/3 of face today, MMM left pupil is larger than right pupil (chronic), no JVD Heart - naeem, s1 s2, 1/6 systolic murmur Lungs - CTA b/l Abd - soft NT ND BS+ Ext - no edema, pulses 2+ b/l Neuro - strength 5/5 x both legs (prox & distal strength) Results & Data Results & Data Vital Signs (Past 12 Hours) Vital Signs Temp Pulse Resp BP BP Pulse Ox O2 Del Method 01/22/24 19:55 36.9 C 62 20 150/69 H 93 Room Air 01/22/24 15:22 36.5 C 61 18 139/66 96 Room Air 01/22/24 10:55 36.5 C 53 L 18 149/76 H 95 Room Air PG Care Time/CCT Total # of Minutes Spent Total Time Spent with Patient: Total time spent is greater than 50% in coordination of care (as documented) at patient's floor/unit and/or counseling patient: Coding Level of Care Code 63117 SUB INP/OBS CARE 2/35MIN Diagnoses Fracture of lumbar spine S32.009A Concussion S06.0XAA Sinus bradycardia R00.1 Facial fracture S02.92XA Encounter type: initial encounter Facial bone/location: unspecified facial bone Fracture type: closed Left bundle-branch block I44.7 Low back pain M54.50 Acute metabolic encephalopathy G93.41 Hyponatremia E87.1 (4) Facial fracture Encounter type: initial encounter Facial bone/location: unspecified facial bone Fracture type: closed Qualified Code(s): S02.92XA - Unspecified fracture of facial bones, initial encounter for closed fracture
[2024-01-23 06:34] LABS: Hematocrit (blood only) 36.1 % (37.0-47.0); Hemoglobin 12.2 g/dl (12.0-16.0); Mean Corpuscular Hemoglobin 32.3 pg (25.0-34.0); Mean Corpuscular Hgb Conc 33.8 g/dL (32.0-36.0); Mean Corpuscular Volume 95.5 fL (80.0-100.0); Mean Platelet Volume 10.7 fL (9.4-12.4); Platelet Count 197 K/uL (130-400); RDW Standard Deviation 45.3 fL (36.4-46.3); Red Blood Count 3.78 M/uL (4.20-5.40); White Blood Count 5.73 K/ul (4.8-10.8)
[2024-01-23 06:44] LABS: BUN Creatinine Ratio 15.4 (10-20); Calcium 9.1 mg/dl (8.6-10.3); Creatinine Clr Calc Pharmacy 57.1 ml/min; Est GFR (African American) 92.5 ml/min; Est GFR (Non-African American) 79.8 ml/min; Potassium 3.9 mmol/L (3.5-5.1)
[2024-01-23] MEDS: LIDOCAINE 5% 1 PATCH TD SCH ×2 (10:56→20:33)
[2024-01-23] MEDS: SODIUM CHLORIDE 0.65% NA SOLN 45 ML (OCEAN) PRN (12:59)
--- NOTE | 2024-01-23 22:19 | Hospitalist Progress Note ---
Date of Service January 23, 2024 Assessment & Plan (1) Fracture of lumbar spine: Plan: 2nd to fall. * Nondisplaced fractures -- posterior cortex/bilateral pedicles of the L1 vertebral body. * Nondisplaced fracture through the tip of the L2 spinous process. * Trace retroperitoneal hemorrhage along the psoas muscles and posterior to the kidneys. Fortunately her LE motor exam remains intact. No paresthesias or other neuro symptoms of legs. H/H remain stable on serial CBCs. Appreciate consultation by Dr Joy from ortho-spine. He advises activity as tolerated but avoidance of twisting, bending, heavy lifting, etc. No back brace advised. Bedrest discontinued. 25-OH vit D level wnl. Pain control - continues to require scheduled tylenol, norco prn, dilaudid prn. Placed her on dvt prophylaxis, will need to monitor her hemoglobin. Awaiting placement. Patient denied with peer to peer. Family appeal underway. Patient had a bowel movement. will continue to monitor. (2) Concussion: Plan: suspect she suffered a concussion from her fall with head injury supportive care symptoms (headache, some mild confusion, etc) have improved while hospitalized (3) Sinus bradycardia: Plan: due to her sinus bradycardia, LBBB, first degree AV block - obtained echo -- intact LV function seen consider prolonged monitoring as outpatient to rule out higher block, pauses, etc contributing to fall risk TSH noted to be wnl - 07/2023 (4) Facial fracture: Plan: Right zygomatic arch fracture. Lateral orbital wall as well as nondisplaced fracture of the inferior orbital wall. Fracture of the lateral and anterior dietz of the maxillary sinus with intra- sinus hemorrhage. Admitting MD was in touch with Dr Zachery Jurado oral surgery - nothing operative at this time. I spoke directly with Dr Jurado who will see Mrs Hicks in formal consultation; he suspects nothing surgical is needed. Pain control - * schedule tylenol 500mg TID * norco 5's prn * dilaudid 0.25mg q6h prn * add lidocaine patch 25-OH vit D level = 39. (5) Left bundle-branch block: Plan: chronic, long standing dating back several years echo with preserved EF no ischemic symptoms (6) Low back pain: Plan: see #1 above 2nd L1/L2 fractures (7) Acute metabolic encephalopathy: Plan: head injury with concussion will play a massive role can't exclude toxic effects from pain meds head CT x 2 without ICH or stroke B12 wnl TSH wnl (07/2023) confusion has improved today was her best day (8) Hyponatremia: Plan: looked volume contracted at admission Na level climbed to 133 with gentle IV fluids then reverted back to 131 urine osm and urine Na today NOT c/w SIADH consulted nephrology for assistance regarding hyponatremia Plan GERD: PPI Anxiety: Continue sertraline Constipation: senna + miralax; give dulcolax suppos x 1; patient had multiple BMs yesterday, will monitor. DVT prophylaxis: ;Dr. Joy agrees with dvt propy dispo - rehab post-d/c Admission and Anticipated Discharge Date Admission Date: January 17, 2024 Subjective 88 yo female reports no new symptoms. Review of Systems Review of Systems: All systems reviewed & are unremarkable except as noted in HPI & below Physical Exam Physical Exam: Consitutional- lying in bed, awake, alert, comfortable HEENT - extensive facial bruising and right orbital bruising with abrasion on zygoma area on right; gross swelling is mildly improved today; not as much swelling on lower 1/3 of face today, MMM left pupil is larger than right pupil (chronic), no JVD Heart - naeem, s1 s2, 1/6 systolic murmur Lungs - CTA b/l Abd - soft NT ND BS+ Ext - no edema, pulses 2+ b/l Neuro - strength 5/5 x both legs (prox & distal strength) Results & Data Results & Data Vital Signs (Past 12 Hours) Vital Signs Temp Pulse Pulse Resp BP BP Pulse Ox 01/23/24 19:43 36.9 C 59 L 18 143/65 H 98 01/23/24 15:30 36.6 C 64 18 144/71 H 97 01/23/24 14:41 60 01/23/24 11:23 36.6 C 56 L 18 156/71 H 93 O2 Del Method 01/23/24 19:43 Room Air 01/23/24 15:30 Room Air 01/23/24 14:41 01/23/24 11:23 Room Air PG Care Time/CCT Total # of Minutes Spent Total Time Spent with Patient: Total time spent is greater than 50% in coordination of care (as documented) at patient's floor/unit and/or counseling patient: Coding Level of Care Code 64819 SUB INP/OBS CARE 2/35MIN Diagnoses Fracture of lumbar spine S32.009A Concussion S06.0XAA Sinus bradycardia R00.1 Facial fracture S02.92XA Encounter type: initial encounter Facial bone/location: unspecified facial bone Fracture type: closed Left bundle-branch block I44.7 Low back pain M54.50 Acute metabolic encephalopathy G93.41 Hyponatremia E87.1 (4) Facial fracture Encounter type: initial encounter Facial bone/location: unspecified facial bone Fracture type: closed Qualified Code(s): S02.92XA - Unspecified fracture of facial bones, initial encounter for closed fracture
[2024-01-24 06:09] LABS: Creatinine Clr Calc Pharmacy 53.8 ml/min; Est GFR (African American) 90.7 ml/min; Est GFR (Non-African American) 78.3 ml/min
--- NOTE | 2024-01-24 22:19 | Hospitalist Progress Note ---
Date of Service January 24, 2024 Assessment & Plan (1) Fracture of lumbar spine: Plan: 2nd to fall. * Nondisplaced fractures -- posterior cortex/bilateral pedicles of the L1 vertebral body. * Nondisplaced fracture through the tip of the L2 spinous process. * Trace retroperitoneal hemorrhage along the psoas muscles and posterior to the kidneys. Fortunately her LE motor exam remains intact. No paresthesias or other neuro symptoms of legs. H/H remain stable on serial CBCs. Appreciate consultation by Dr Joy from ortho-spine. He advises activity as tolerated but avoidance of twisting, bending, heavy lifting, etc. No back brace advised. Bedrest discontinued. 25-OH vit D level wnl. Pain control - continues to require scheduled tylenol, norco prn, dilaudid prn. Placed her on dvt prophylaxis, will need to monitor her hemoglobin. Awaiting placement. Patient denied with peer to peer. Family appeal underway. Patient had a bowel movement. will continue to monitor. Reviewed blood BMP on 01/23 (2) Concussion: Plan: suspect she suffered a concussion from her fall with head injury supportive care symptoms (headache, some mild confusion, etc) have improved while hospitalized (3) Sinus bradycardia: Plan: due to her sinus bradycardia, LBBB, first degree AV block - obtained echo -- intact LV function seen consider prolonged monitoring as outpatient to rule out higher block, pauses, etc contributing to fall risk TSH noted to be wnl - 07/2023 (4) Facial fracture: Plan: Right zygomatic arch fracture. Lateral orbital wall as well as nondisplaced fracture of the inferior orbital wall. Fracture of the lateral and anterior dietz of the maxillary sinus with intra- sinus hemorrhage. Admitting MD was in touch with Dr Zachery Jurado oral surgery - nothing operative at this time. I spoke directly with Dr Jurado who will see Mrs Hicks in formal consultation; he suspects nothing surgical is needed. Pain control - * schedule tylenol 500mg TID * norco 5's prn * dilaudid 0.25mg q6h prn * add lidocaine patch 25-OH vit D level = 39. (5) Left bundle-branch block: Plan: chronic, long standing dating back several years echo with preserved EF no ischemic symptoms (6) Low back pain: Plan: see #1 above 2nd L1/L2 fractures (7) Acute metabolic encephalopathy: Plan: head injury with concussion will play a massive role can't exclude toxic effects from pain meds head CT x 2 without ICH or stroke B12 wnl TSH wnl (07/2023) confusion has improved today was her best day (8) Hyponatremia: Plan: looked volume contracted at admission Na level climbed to 133 with gentle IV fluids then reverted back to 131 urine osm and urine Na today NOT c/w SIADH consulted nephrology for assistance regarding hyponatremia Plan GERD: PPI Anxiety: Continue sertraline Constipation: senna + miralax; give dulcolax suppos x 1; patient had multiple BMs yesterday, will monitor. DVT prophylaxis: ;Dr. Joy agrees with dvt propy dispo - rehab post-d/c Admission and Anticipated Discharge Date Admission Date: January 17, 2024 Subjective Patient reports no new symptoms. Review of Systems Review of Systems: All systems reviewed & are unremarkable except as noted in HPI & below Physical Exam Physical Exam: Consitutional- lying in bed, awake, alert, comfortable HEENT - extensive facial bruising and right orbital bruising with abrasion on zygoma area on right; gross swelling is mildly improved today; not as much swelling on lower 1/3 of face today, MMM left pupil is larger than right pupil (chronic), no JVD Heart - naeem, s1 s2, 1/6 systolic murmur Lungs - CTA b/l Abd - soft NT ND BS+ Ext - no edema, pulses 2+ b/l Neuro - strength 5/5 x both legs (prox & distal strength) Results & Data Results & Data Vital Signs (Past 12 Hours) Vital Signs Temp Pulse Pulse Resp BP Pulse Ox O2 Del Method 01/24/24 19:27 36.7 C 57 L 18 162/73 H 95 Room Air 01/24/24 18:55 65 01/24/24 15:40 36.6 C 59 L 18 160/77 H 95 Room Air 01/24/24 11:46 36.8 C 61 18 150/77 H 94 Room Air 01/24/24 10:47 62 PG Care Time/CCT Total # of Minutes Spent Total Time Spent with Patient: Total time spent is greater than 50% in coordination of care (as documented) at patient's floor/unit and/or counseling patient: Coding Level of Care Code 32504 SUB INP/OBS CARE 2/35MIN Diagnoses Fracture of lumbar spine S32.009A Concussion S06.0XAA Sinus bradycardia R00.1 Facial fracture S02.92XA Encounter type: initial encounter Facial bone/location: unspecified facial bone Fracture type: closed Left bundle-branch block I44.7 Low back pain M54.50 Acute metabolic encephalopathy G93.41 Hyponatremia E87.1 (4) Facial fracture Encounter type: initial encounter Facial bone/location: unspecified facial bone Fracture type: closed Qualified Code(s): S02.92XA - Unspecified fracture of facial bones, initial encounter for closed fracture
[2024-01-25] MEDS: HYDROmorphone INJ 0.5 MG/0.5 ML SYR IV STA (10:55)
[2024-01-25] MEDS: CALCITONIN SALMON NA 200 IU/AC 3.7 ML BTL SCH (17:17)
--- NOTE | 2024-01-25 22:35 | Hospitalist Progress Note ---
Date of Service January 25, 2024 Assessment & Plan (1) Fracture of lumbar spine: Plan: 2nd to fall. * Nondisplaced fractures -- posterior cortex/bilateral pedicles of the L1 vertebral body. * Nondisplaced fracture through the tip of the L2 spinous process. * Trace retroperitoneal hemorrhage along the psoas muscles and posterior to the kidneys. Fortunately her LE motor exam remains intact. No paresthesias or other neuro symptoms of legs. H/H remain stable on serial CBCs. Appreciate consultation by Dr Joy from ortho-spine. He advises activity as tolerated but avoidance of twisting, bending, heavy lifting, etc. No back brace advised. Bedrest discontinued. 25-OH vit D level wnl. Pain control - continues to require scheduled tylenol, norco prn, dilaudid prn. Placed her on dvt prophylaxis, will need to monitor her hemoglobin. Awaiting placement. Patient denied with peer to peer. Family appeal underway. Patient had a bowel movement. will continue to monitor. Reviewed blood BMP on 01/23 On 01/24 Pain was worse, ordered additional iv Dilaudid and calcitonin nasal spray for pain for spinal fracture (2) Concussion: Plan: suspect she suffered a concussion from her fall with head injury supportive care symptoms (headache, some mild confusion, etc) have improved while hospitalized (3) Sinus bradycardia: Plan: due to her sinus bradycardia, LBBB, first degree AV block - obtained echo -- intact LV function seen consider prolonged monitoring as outpatient to rule out higher block, pauses, etc contributing to fall risk TSH noted to be wnl - 07/2023 (4) Facial fracture: Plan: Right zygomatic arch fracture. Lateral orbital wall as well as nondisplaced fracture of the inferior orbital wall. Fracture of the lateral and anterior dietz of the maxillary sinus with intra- sinus hemorrhage. Admitting MD was in touch with Dr Zachery Jurado oral surgery - nothing operative at this time. I spoke directly with Dr Jurado who will see Mrs Hicks in formal consultation; he suspects nothing surgical is needed. Pain control - * schedule tylenol 500mg TID * norco 5's prn * dilaudid 0.25mg q6h prn * add lidocaine patch 25-OH vit D level = 39. (5) Left bundle-branch block: Plan: chronic, long standing dating back several years echo with preserved EF no ischemic symptoms (6) Low back pain: Plan: see #1 above 2nd L1/L2 fractures (7) Acute metabolic encephalopathy: Plan: head injury with concussion will play a massive role can't exclude toxic effects from pain meds head CT x 2 without ICH or stroke B12 wnl TSH wnl (07/2023) confusion has improved today was her best day (8) Hyponatremia: Plan: looked volume contracted at admission Na level climbed to 133 with gentle IV fluids then reverted back to 131 urine osm and urine Na today NOT c/w SIADH consulted nephrology for assistance regarding hyponatremia Plan GERD: PPI Anxiety: Continue sertraline Constipation: senna + miralax; give dulcolax suppos x 1; patient had multiple BMs yesterday, will monitor. DVT prophylaxis: ;Dr. Joy agrees with dvt propy dispo - rehab post-d/c Admission and Anticipated Discharge Date Admission Date: January 17, 2024 Subjective Patient reports lower back pain. Review of Systems Review of Systems: All systems reviewed & are unremarkable except as noted in HPI & below Physical Exam Physical Exam: Consitutional- lying in bed, awake, alert, comfortable HEENT - extensive facial bruising and right orbital bruising with abrasion on zygoma area on right; gross swelling is mildly improved today; not as much swelling on lower 1/3 of face today, MMM left pupil is larger than right pupil (chronic), no JVD Heart - naeem, s1 s2, 1/6 systolic murmur Lungs - CTA b/l Abd - soft NT ND BS+ Ext - no edema, pulses 2+ b/l Neuro - strength 5/5 x both legs (prox & distal strength) Results & Data Results & Data Vital Signs (Past 12 Hours) Vital Signs Temp Pulse Pulse Resp BP BP Pulse Ox 01/25/24 15:38 36.5 C 58 L 18 172/54 H 98 01/25/24 14:31 59 L 01/25/24 11:41 36.9 C 58 L 18 148/71 H 94 O2 Del Method 01/25/24 15:38 Room Air 01/25/24 14:31 01/25/24 11:41 Room Air PG Care Time/CCT Total # of Minutes Spent Total Time Spent with Patient: Total time spent is greater than 50% in coordination of care (as documented) at patient's floor/unit and/or counseling patient: Coding Level of Care Code 79261 SUB INP/OBS CARE 2/35MIN Diagnoses Fracture of lumbar spine S32.009A Concussion S06.0XAA Sinus bradycardia R00.1 Facial fracture S02.92XA Encounter type: initial encounter Facial bone/location: unspecified facial bone Fracture type: closed Left bundle-branch block I44.7 Low back pain M54.50 Acute metabolic encephalopathy G93.41 Hyponatremia E87.1 (4) Facial fracture Encounter type: initial encounter Facial bone/location: unspecified facial bone Fracture type: closed Qualified Code(s): S02.92XA - Unspecified fracture of facial bones, initial encounter for closed fracture
[2024-01-26 07:31] LABS: Hematocrit (blood only) 34.5 % (37.0-47.0); Hemoglobin 11.7 g/dl (12.0-16.0); Mean Corpuscular Hgb Conc 33.9 g/dL (32.0-36.0); Mean Corpuscular Volume 94.3 fL (80.0-100.0); Mean Platelet Volume 10.2 fL (9.4-12.4); Platelet Count 210 K/uL (130-400); RDW Coefficient of Variation 13.3 % (11.5-14.5); RDW Standard Deviation 46.5 fL (36.4-46.3); Red Blood Count 3.66 M/uL (4.20-5.40); White Blood Count 5.46 K/ul (4.8-10.8)
[2024-01-26 07:49] LABS: BUN Creatinine Ratio 17.2 (10-20); Calcium 8.7 mg/dl (8.6-10.3); Est GFR (Non-African American) 80.2 ml/min; Potassium 4.1 mmol/L (3.5-5.1)
--- NOTE | 2024-01-28 10:32 | Discharge Summary ---
Discharge Summary Date of Service January 26, 2024 Principal Dx & Hospital Course #1 = Principal Diagnosis (1) Fracture of lumbar spine: 2nd to fall. * Nondisplaced fractures -- posterior cortex/bilateral pedicles of the L1 vertebral body. * Nondisplaced fracture through the tip of the L2 spinous process. * Trace retroperitoneal hemorrhage along the psoas muscles and posterior to the kidneys. Fortunately her LE motor exam remains intact. No paresthesias or other neuro symptoms of legs. H/H remain stable on serial CBCs. Appreciate consultation by Dr Joy from ortho-spine. He advises activity as tolerated but avoidance of twisting, bending, heavy l ifting, etc. No back brace advised. Bedrest discontinued. 25-OH vit D level wnl. Pain control - as noted in discharge instructions. Aded calcitonin nasal spray for pain for spinal fracture (2) Concussion: suspect she suffered a concussion from her fall with head injury supportive care symptoms (headache, some mild confusion, etc) have improved while hospitalized (3) Sinus bradycardia: due to her sinus bradycardia, LBBB, first degree AV block - obtained echo -- intact LV function seen consider prolonged monitoring as outpatient to rule out higher block, pauses, etc contributing to fall risk TSH noted to be wnl - 07/2023 (4) Facial fracture: Right zygomatic arch fracture. Lateral orbital wall as well as nondisplaced fracture of the inferior orbital wall. Fracture of the lateral and anterior dietz of the maxillary sinus with intra- sinus hemorrhage. Admitting MD was in touch with Dr Zachery Jurado oral surgery - nothing operative at this time. I spoke directly with Dr Jurado who will see Mrs Hicks in formal consultation; he suspects nothing surgical is needed. Pain control - * schedule tylenol 500mg TID * norco 5's prn * calcitonin * add lidocaine patch 25-OH vit D level = 39. (5) Left bundle-branch block: chronic, long standing dating back several years echo with preserved EF no ischemic symptoms (6) Low back pain: see #1 above 2nd L1/L2 fractures (7) Acute metabolic encephalopathy: head injury with concussion will play a massive role can't exclude toxic effects from pain meds head CT x 2 without ICH or stroke B12 wnl TSH wnl (07/2023) confusion has improved (8) Hyponatremia: looked volume contracted at admission Na level climbed to 133 with gentle IV fluids then reverted back to 131 urine osm and urine Na today NOT c/w SIADH consulted nephrology for assistance regarding hyponatremia Plan GERD: PPI Anxiety: Continue sertraline Constipation: senna + miralax; give dulcolax suppos x 1; patient had multiple B Ms yesterday, will monitor. Admission HPI Per Admitting Provider Yelitza is an 88-year-old female with a past medical history of first-degree AV block, left bundle branch block, osteoarthritis, anxiety/depression, vaginal prolapse, chronic back pain, pelvic floor dysfunction with hematochezia who has followed with GI but has chosen to defer colonoscopies who presents to the ER with a mechanical fall whiel carrying milkshakes, fell backwards and hit a post on the way down. Did fall to her face--> +facial fractures. Seen at the bedside. Yelitza reports that she was in her normal state of health and felt well until she fell. She was carrying a shoe box milkshakes and food at [facility]. She is not a [facility] resident but she was bringing food to her when she slipped and fell, striking her face on the bottom of a concrete post on her way down. She did not lose consciousness. She did not have any lightheadedness, dizziness, chest pain, chest pressure, presyncope prior to her fall. She did feel nauseous after the fall and feels like she has a little bit of difficulty focusing her vision since. She does not have pain on extraocular movements. 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 Denies abdominal pain. Does have some pain in her face and her posterior neck/back. She also feels very nauseous and has had nonbloody emesis several times since arriving in the ER. She took her morning medications today. She allergic to Bactrim otherwise denies medication allergies. No tobacco or alcohol use. DNR/DNI. Discharge Exam Consitutional- lying in bed, awake, alert, comfortable HEENT - extensive facial bruising and right orbital bruising with abrasion on zygoma area on right; gross swelling is mildly improved today; not as much swelling on lower 1/3 of face today, MMM left pupil is larger than right pupil (chronic), no JVD Heart - naeem, s1 s2, 1/6 systolic murmur Lungs - CTA b/l Abd - soft NT ND BS+ Ext - no edema, pulses 2+ b/l Neuro - strength 5/5 x both legs (prox & distal strength) Updated Medication List Medication Instructions Recorded Confirmed Type lysine 1,000 mg tablet 500 mg PO QAM 11/28/18 01/16/24 History calcium citrate 315 mg 1 tab PO BID 08/17/19 01/16/24 History calcium-vitamin D3 6.25 mcg (250 unit) tablet (Citracal + Vitamin D Maximum) cetirizine 10 mg capsule 10 mg PO QPM 08/17/19 01/16/24 History timolol 0.5 % eye drops 1 drp OPL DAILY 08/23/20 01/16/24 History aspirin 81 mg tablet,delayed 81 mg PO DAILY 02/05/22 01/16/24 History release (Adult Low Dose Aspirin) hydrocortisone 2.5 % topical cream 1 applic HI DAILY PRN Hemorrhoids 02/05/22 01/16/24 History with perineal applicator (Anusol-) latanoprost 0.005 % eye drops 1 drp OPL HS 12/09/22 01/16/24 History vitamin B complex 1 tab PO DAILY 12/09/22 01/16/24 History omeprazole 40 mg capsule,delayed 40 mg PO QAM #90 caps 02/03/23 01/16/24 Rx release clotrimazole-betamethasone 1 1 applic topical .qhs #45 grams 06/24/23 01/16/24 Rx %-0.05 % topical cream sertraline 25 mg tablet See Rx Instructions .Route 07/09/23 01/16/24 Rx .COMPLEX #30 tabs meloxicam 7.5 mg tablet See Rx Instructions .Route 07/21/23 01/16/24 Rx .COMPLEX #180 tabs azelastine 137 mcg (0.1 %) nasal 137 mcg (0.137 mL) intranasal BID 07/23/23 01/16/24 Rx spray #30 mL atorvastatin 20 mg tablet 20 mg PO HS #90 tabs 08/27/23 01/16/24 Rx dexamethasone 0.5 mg/5 mL oral 0.5 mg PO QID PRN Other 09/13/23 01/16/24 History elixir promethazine 12.5 mg tablet 12.5 mg PO Q6H PRN nausea and 09/13/23 01/16/24 Rx vomiting #12 tabs lorazepam 1 mg tablet 1 mg PO DAILY #30 tabs 11/26/23 01/16/24 Rx mometasone-formoterol HFA 200 2 puff inhalation BID #13 grams 12/24/23 01/16/24 Rx mcg-5 mcg/actuation aerosol inhaler (Dulera) benzonatate 100 mg capsule 100 mg PO TID PRN Cough 01/16/24 01/16/24 History famotidine 20 mg tablet 20 mg PO DAILY 01/16/24 01/16/24 History fluticasone propionate 50 1 spray intranasal QAM 01/16/24 01/16/24 History mcg/actuation nasal spray,suspension sodium chloride 0.65 % nasal spray 1 - 2 spray intranasal HS PRN 01/16/24 01/16/24 History aerosol ([place] Saline) Nasal Congestion acetaminophen 500 mg tablet 500 mg PO Q8H Pain #0 tabs 01/26/24 01/16/24 Rx (Tylenol Extra Strength) calcitonin (salmon) 200 1 spray NA DAILY #0 mL 01/26/24 Rx unit/actuation nasal spray lidocaine 5 % topical patch 1 patch transdermal PM #0 ea 01/26/24 Rx mupirocin 2 % topical ointment 1 applic EXT TID #0 grams 01/26/24 Rx polyethylene glycol 3350 17 gram 17 g PO DAILY #0 ea 01/26/24 Rx oral powder packet (Miralax) sennosides 8.6 mg tablet (Senokot) 17.2 mg (2 x 8.6 mg) PO QAM #0 tabs 01/26/24 Rx Hospital Stay Data Consultations 01/16/24 18:20 ED Decision to Admit Stat 01/18/24 14:18 Consult Orthopedic Spine Surgery Routine 01/20/24 13:57 Consult Nephrology Routine 01/20/24 13:58 Consult Oromaxillofacial Surgery Routine Diagnostic Imagining Performed 01/16/24 16:08 CT cervical spine wo con Stat CT face [CT facial bones wo con] Stat CT head/brain wo con Stat CT lumbar spine wo con Stat 01/17/24 18:40 CT Abd and Pelvis [CT abd pelvis IV con only] Urgent CT head/brain wo con Urgent Pending Results Patient Have Any Pending Studies at Discharge: No Discharge Instructions Given to Patient (Per Discharging Provider) --continue free water restriction to less than 1500 mL/day. -- Expect sodium to stay relatively stable with chronic mild hyponatremia. continue pain control. Oralmaxillofacial: Findings compatible with zygomaticomaxillary complex fracture. I reviewed the CT and examined Yelitza at bedside All the fractures noted are non displaced and present no functional or cosmetics concerns. No treatment needed. From Dr. Joy Ortho spine Impression: Nondisplaced fractures as described at L1 and L2, degenerative changes involving lumbar spine status post fall. You do not need a brace, Please avoid any bending lifting twisting to any significant degree, follow-up in 1 week from discharge and we will then obtain radiographs to check on the fractures. Can continue with mobilization with physical therapy Total Time Total Time Spent Total Time Spent (In Minutes): 32 Coding Level of Care Code 81919 INP/OBS DISCH >30 MIN Diagnoses Fracture of lumbar spine S32.009A Concussion S06.0XAA Sinus bradycardia R00.1 Facial fracture S02.92XA Encounter type: initial encounter Facial bone/location: unspecified facial bone Fracture type: closed Left bundle-branch block I44.7 Low back pain M54.50 Acute metabolic encephalopathy G93.41 Hyponatremia E87.1
== END 2024-01-26 17:37 | DRG 551 ==
LOC: ED 14:49 → 2S 14:49 → SUATTDRO 19:05 → 2S 22:32 → SUATTDRO 01-17 19:10
DX: R00.1 Bradycardia, unspecified; S02.841A Fracture of lateral orbital wall, right side, initial encounter for closed fracture; S02.40EA Zygomatic fracture, right side, initial encounter for closed fracture; I44.7 Left bundle-branch block, unspecified; S32.018A Other fracture of first lumbar vertebra, initial encounter for closed fracture; W01.198A Fall on same level from slipping, tripping and stumbling with subsequent striking against other object, initial encounter; Z79.899 Other long term (current) drug therapy; S36.81XA Injury of peritoneum, initial encounter; S32.028A Other fracture of second lumbar vertebra, initial encounter for closed fracture; S02.31XA Fracture of orbital floor, right side, initial encounter for closed fracture; Z88.2 Allergy status to sulfonamides; F41.9 Anxiety disorder, unspecified; K59.00 Constipation, unspecified; S61.412A Laceration without foreign body of left hand, initial encounter; G93.41 Metabolic encephalopathy; Z79.82 Long term (current) use of aspirin; S06.0X0A Concussion without loss of consciousness, initial encounter; K21.9 Gastro-esophageal reflux disease without esophagitis; E87.1 Hypo-osmolality and hyponatremia; S02.40CA Maxillary fracture, right side, initial encounter for closed fracture